=== PATIENT | female | born 1995 | race Caucasian/White ===

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

== ENCOUNTER → 2017-01-07 | Outpatient (CLI) | payer BC ==
[~2017-01-07] MED LIST changes: +COLA100C3 PO; +MIRA3350 PO; +PROCAER4 PR
--- NOTE | 2017-01-07 20:04 | ECHO ---
DATE OF PROCEDURE: 01/07/2017 REFERRING PHYSICIAN: Tanja Acevedo MD HEIGHT: 169 cm WEIGHT: 91 kg INDICATION: Heart murmur. DIMENSIONS: IVS: 0.8 LV: 4.4 LVPW: 0.9 LA: 3.1 Aorta: 2.3 FINDINGS: The study is of acceptable technical quality. Left ventricle is of normal size and systolic function with estimated left ventricular ejection fraction (LVEF) 60-65%. Right ventricle is also normal size and systolic function. Both atria appear normal. All four cardiac valves were well seen and appear normal. There is no pericardial effusion. Inferior vena cava is normal size. Aortic root and aortic arch appear normal. Doppler interrogation reveals no significant aortic and mitral valve disease. There is trace tricuspid insufficiency. Calculated pulmonary artery pressure is within normal limits. Pulmonic valve is functionally competent. Mitral inflow pattern and tissue Doppler imaging of mitral annulus reveal normal diastolic function of left ventricle. CONCLUSIONS: 1. Study is of acceptable technical quality. 2. Normal LV size and systolic function, normal diastolic function. 3. No significant valvular disease. 4. Normal central venous pressure and likely normal pulmonary artery pressure. COMMENT: Subacute bacterial endocarditis (SBE) prophylaxis is not recommended. Essentially normal echocardiogram.
== END ==
LOC: M CARPUL 14:53
PROVIDERS: ATTEND Pediatrics
DX: R01.1 Cardiac murmur, unspecified (principal)

== ENCOUNTER 2017-01-13 19:08 | Emergency (ER) | payer BC ==
[~2017-01-13] VITALS: Ht 165.1 cm; Wt 94.3 kg
[~2017-01-13 19:08] MED LIST changes: -COLA100C3 PO; +IBUP-1022 PO; -IBUP600T26 PO; -PROCAER4 PR
[2017-01-13] MEDS ORDERED: COLA100C5 PO (20:11)
[2017-01-13] MEDS ORDERED: PROCAER4 PR (20:11)
[2017-01-13 20:25] VITALS: BP 108/67
== END 2017-01-13 20:25 | disposition home or self-care (01) ==
LOC: M ED 19:52
DX: K64.4 Residual hemorrhoidal skin tags (principal); K59.00 Constipation, unspecified

== ENCOUNTER 2017-03-29 09:13 | Emergency (ER) | payer BC ==
[~2017-03-29] VITALS: Ht 165.1 cm; Wt 94.9 kg
[~2017-03-29 09:13] MED LIST changes: +COLA100C5 PO; +PROCAER4 PR
--- NOTE | 2017-03-29 10:53 | REP ---
Clinical: Spotting for dating and viability. Technique: Transabdominal and transvaginal first trimester obstetrical ultrasound with color Doppler evaluation. Findings: Retroverted uterus measures 6.8 x 4.4 x 6.1 cm. A gestational sac is identified with yolk sac, but no evidence for pole. Mean sac diameter corresponds to 5 weeks 1 day gestational age. Maternal ovaries are normal in appearance and vascularity with a 1.3 cm right corpus luteal cyst suggested. No pelvic free fluid or adnexal mass lesion. Impression: Gestational sac with yolk sac but no pole identified. Differential diagnosis includes early and incomplete . No definite ectopic is appreciated. Correlation with serial HCG levels recommended. Signed by Alex Novak MD 03/29/2017 10:44 A
[2017-03-29] MEDS ORDERED: NAPR500T3 PO (11:09)
[2017-03-29] MEDS ORDERED: TYLE325T5 PO (11:09)
[2017-03-29 11:18] VITALS: BP 134/88
== END 2017-03-29 11:22 | disposition home or self-care (01) ==
LOC: M ED 09:13
DX: O03.9 Complete or unspecified spontaneous abortion without complication (principal); Z87.891 Personal history of nicotine dependence

== ENCOUNTER → 2017-03-31 | Outpatient (CLI) | payer BC ==
[~2017-03-31] MED LIST changes: +NAPR500T3 PO; +TYLE325T5 PO
== END ==
LOC: M LAB 09:50
PROVIDERS: ATTEND Specialist
DX: O20.0 Threatened abortion (principal)

== ENCOUNTER → 2017-04-07 | Outpatient (CLI) | payer BC ==
[2017-04-07 13:56] LABS: BASO % 0.6 % (0.0-1.0); EOS # 0.1 K/mm3 (0.0-0.50); LARGE UNSTAINED CELL # 0.1 K/mm3 (0.0-0.4); LARGE UNSTAINED CELL % 1.8 % (0.0-4.0); LYMPH # 2.6 K/mm3 (1.5-6.5); LYMPH % 40.9 % (24.0-44.0); MEAN CORPUSCULAR HEMOGLOBIN 29.2 pg (27.0-33.0); MEAN CORPUSCULAR HGB CONC 34.3 g/dl (32.0-36.5); MEAN CORPUSCULAR VOLUME 85.2 fl (80.0-96.0); MONO # 0.3 K/mm3 (0.0-0.8); MONO % 4.7 % (0.0-5.0); NEUTROPHILS # 3.2 K/mm3 (1.8-7.7); NEUTROPHILS % 51.1 % (36.0-66.0); PLATELET COUNT, AUTOMATED 214 k/mm3 (150-450); WHITE BLOOD COUNT 6.3 K/mm3 (4.0-10.0)
[2017-04-07 15:21] LABS: HBsAg Prenatal NEGATIVE (NEGATIVE)
== END ==
LOC: M LAB 12:54
PROVIDERS: ATTEND Advanced Practice Midwife
DX: Z34.81 Encounter for supervision of other normal pregnancy, first trimester (principal); Z36 Encounter for antenatal screening of mother; Z3A.00 Weeks of gestation of pregnancy not specified

== ENCOUNTER → 2017-07-05 | Outpatient (CLI) | payer BC ==
--- NOTE | 2017-07-05 13:29 | REP ---
Obstetric ultrasound for anatomy: There is a single intrauterine gestation in a vertex presentation. There is movement and cardiac activity. heart rate is 115 beats per minute. The placenta is posterior. There is no placenta previa or abruptio. Placenta is grade zero maturity. The inferior margin of the placenta lies within 1.7 - 2.5 cm of the internal cervical os and is low lying. Because of this consideration might be given to having the patient return for endovaginal Doppler ultrasound for assurance there is no vasa previa. Cervix measures 2.5 cm length. Based on the ultrasound today gestational age is 18 weeks 5 days with an GABRIEL of 12/01/2017. weight is 269 grams (0 pounds, 9 ounces). This is the 57th percentile for 18 weeks 5 days. The following anatomic structures are identified and are unremarkable: Intracranial lateral ventricles, choroid plexus, cerebellum, cisterna magna, facial profile, face, lungs, diaphragm, stomach, cord insertion, three-vessel cord, kidneys, bladder, spine and upper extremities. Suboptimally demonstrated are the four-chamber view of the heart and the right and left cardiac ventricular outflow tracts and lower extremities. A followup study dedicated to these structures might be considered. Additionally, I recommend the patient return for endovaginal imaging with color Doppler to evaluate for vasa previa. Because of the low lying placenta. Otherwise, no anomalies are identified Signed by Jose Angel Araiza MD 07/05/2017 01:20 P
== END ==
LOC: M SMT 09:57
PROVIDERS: ATTEND Advanced Practice Midwife
DX: Z36.89 Encounter for other specified antenatal screening (principal); Z3A.18 18 weeks gestation of pregnancy

== ENCOUNTER → 2017-07-27 | Outpatient (CLI) | payer BC | LOC: M SMT 15:00 | DX: Z34.82 Encounter for supervision of other normal pregnancy, second trimester (principal) | CPT/HCPCS: 76816 ==

== ENCOUNTER → 2017-08-25 | Outpatient (CLI) | payer BC | LOC: M SMT 11:15 | DX: Z34.82 Encounter for supervision of other normal pregnancy, second trimester (principal) ==

== ENCOUNTER → 2017-09-03 | Outpatient (CLI) | payer BC ==
[2017-09-03 14:00] LABS: HEMATOCRIT 40.7 % (36.0-47.0); HEMOGLOBIN 13.3 g/dl (12.0-16.0); MEAN CORPUSCULAR HGB CONC 32.7 g/dl (32.0-36.5); MEAN CORPUSCULAR VOLUME 88.7 fl (80.0-96.0); PLATELET COUNT, AUTOMATED 204 10^3/uL (150-450); RED BLOOD COUNT 4.59 10^6/uL (4.00-5.40); RED CELL DISTRIBUTION WIDTH 13.2 % (11.5-14.5); WHITE BLOOD COUNT 8.9 10^3/uL (4.0-10.0)
[2017-09-03 14:24] LABS: GLUCOSE CHALLENGE TEST 1 HOUR 96 MG/DL (LESS THAN 140)
== END ==
LOC: M SMT 08:14
DX: Z34.82 Encounter for supervision of other normal pregnancy, second trimester (principal)
CPT/HCPCS: 82950

== ENCOUNTER → 2017-11-04 | Outpatient (REF) | payer BC | LOC: M LAB REF 13:18 | DX: Z34.83 Encounter for supervision of other normal pregnancy, third trimester (principal) | CPT/HCPCS: 87086 ==

== ENCOUNTER 2017-11-28 00:24 | Inpatient (IN) | payer BC ==
[2017-11-28 01:57] LABS: HEMATOCRIT 39.7 % (36.0-47.0); HEMOGLOBIN 13.3 g/dl (12.0-15.5); MEAN CORPUSCULAR HEMOGLOBIN 27.4 pg (27.0-33.0); MEAN CORPUSCULAR HGB CONC 33.5 g/dl (32.0-36.5); MEAN CORPUSCULAR VOLUME 81.7 fl (80.0-96.0); PLATELET COUNT, AUTOMATED 180 10^3/uL (150-450); RED BLOOD COUNT 4.86 10^6/uL (4.00-5.40); RED CELL DISTRIBUTION WIDTH 13.7 % (11.5-14.5); WHITE BLOOD COUNT 9.3 10^3/uL (4.0-10.0)
[2017-11-28] MEDS ORDERED: FENTANYL 2MCG/ML ROPIVACAINE 0.2% IN 0.9% NACL 200ML IVBAG As Ordered (03:43)
[2017-11-28] MEDS ORDERED: OXYTOCIN 30 UNITS IN 0.9% NaCl 500ML IV BAG (J2590) As Ordered ×2 (03:44→09:55)
[2017-11-28] MEDS ORDERED: REFRIGERATOR IV KEYS XX (05:00)
[2017-11-28] MEDS ORDERED: diphenhydrAMINE INJ 50MG/ML VIAL (J1200) IV (05:00)
[2017-11-28] MEDS ORDERED: ONDANSETRON 4MG/2ML VIAL (J2405) IV ×2 (05:00→10:15)
[2017-11-28] MEDS ORDERED: EPIDURAL COMMENT XX (05:00)
[2017-11-28] MEDS ORDERED: ePHEDrine SULFATE 25 MG/5 ML(5MG/ML) SYRINGE IV (05:00)
[2017-11-28] MEDS ORDERED: EPIDURAL/PCA KEYS XX (05:00)
[2017-11-28] MEDS ORDERED: LACTATED RINGER'S 1000 ML IV (05:00)
[2017-11-28] MEDS ORDERED: NALOXONE INJ 0.4 MG/1 ML VIAL (J2310) IV (05:00)
[2017-11-28] MEDS: OXYTOCIN DRIP 30 UNITS in APPROPRIATE DILUENT 1 EA IV ×2 (09:39→10:05)
[2017-11-28 09:42] LABS: CORD GAS ABE A -10.5; CORD GAS HCO3 A 20.2 MEQ/L; CORD GAS O2 SAT A 19.6 %; CORD GAS PCO2 A 64.5 mmHg; CORD GAS PH A 7.113 UNITS; CORD GAS PO2 A 15.7 mmHg; CORD GAS SBC A 14.7 MEQ/L; CORD GAS TCO2 A 22.1 MEQ/L
[2017-11-28 09:45] LABS: CORD GAS ABE V -8.7; CORD GAS HCO3 V 18.3 MEQ/L; CORD GAS O2 SAT V 63.4 %; CORD GAS PH V 7.246 UNITS; CORD GAS PO2 V 29.7 mmHg; CORD GAS SBC V 16.8 MEQ/L; CORD GAS TCO2 V 19.6 MEQ/L
[2017-11-28] MEDS ORDERED: DIBUCAINE 1% OINTMENT 30GM TOP (10:15)
[2017-11-28] MEDS ORDERED: DOCUSATE SODIUM 100 MG CAP PO (10:15)
[2017-11-28] MEDS ORDERED: METHYLERGONOVINE MALEATE 0.2 MG TAB PO (10:15)
[2017-11-28] MEDS: IBUPROFEN 800 MG TAB PO ×2 (10:21→19:25)
[2017-11-28] MEDS: ACETAMINOPHEN 500 MG TAB PO (17:53)
[2017-11-28] MEDS: FENTANYL/ROPIVACAINE/NACL BAG 200 ML EPIDURAL (19:30)
[2017-11-29] MEDS: IBUPROFEN 800 MG TAB PO ×2 (03:21→12:46)
[2017-11-29] MEDS: PRENATAL VITAMINS CHEWABLE TABLET PO (08:50)
[2017-11-29] MEDS: MEASLES,MUMPS,RUBELLA VACCINE INJ (MMR-II) (90707) SC (09:18)
[2017-11-29] MEDS: RHOGAM 300 MCG (1500 IU) INJ (J2790) IM (09:18)
[2017-11-29] MEDS: ACETAMINOPHEN 500 MG TAB PO (18:43)
[2017-11-30] MEDS: IBUPROFEN 800 MG TAB PO (03:56)
[2017-11-30] MEDS: ACETAMINOPHEN 500 MG TAB PO (03:56)
[2017-11-30] MEDS: PRENATAL VITAMINS CHEWABLE TABLET PO (07:38)
== END 2017-11-30 13:00 | disposition home or self-care (01) | DRG 560 ==
LOC: M LDO 00:24 → M LDI 01:21 → M OBS 11:50
PROVIDERS: Advanced Practice Midwife
PROC: 10E0XZZ Delivery of Products of Conception, External Approach (ICD-10-PCS; principal; 2017-11-28)
DX: O69.81X0 Labor and delivery complicated by cord around neck, without compression, not applicable or unspecified (principal); O77.0 Labor and delivery complicated by meconium in amniotic fluid; Z3A.40 40 weeks gestation of pregnancy; Z37.0 Single live birth

== ENCOUNTER → 2018-04-12 | Outpatient (REF) | payer BC, MEDICAID ==
[2018-04-12 17:25] LABS: BASO % 0.4 % (0.0-1.0); EOS # 0.1 10^3/uL (0.0-0.50); EOS % 0.7 % (0.0-3.0); HEMATOCRIT 41.2 % (36.0-47.0); HEMOGLOBIN 13.6 g/dl (12.0-15.5); IMMATURE GRANULOCYTE % 0.3 % (0-3.0); LYMPH # 2.3 10^3/uL (1.5-6.5); LYMPH % 30.2 % (24.0-44.0); MEAN CORPUSCULAR HEMOGLOBIN 26.7 pg (27.0-33.0); MEAN CORPUSCULAR VOLUME 80.9 fl (80.0-96.0); MONO # 0.5 10^3/uL (0.0-0.8); MONO % 6.4 % (0.0-5.0); NEUTROPHILS # 4.8 10^3/uL (1.8-7.7); PLATELET COUNT, AUTOMATED 211 10^3/uL (150-450); RED BLOOD COUNT 5.09 10^6/uL (4.00-5.40); RED CELL DISTRIBUTION WIDTH 13.2 % (11.5-14.5); WHITE BLOOD COUNT 7.7 10^3/uL (4.0-10.0)
[2018-04-12 18:02] LABS: CHLAMYDIA DNA AMPLIFICATION NEGATIVE (NEGATIVE); GC DNA AMPLIFICATION NEGATIVE (NEGATIVE)
[2018-04-13 10:37] LABS: HEPATITIS C VIRUS ABY INDEX 0.1 INDEX (<0.8)
[2018-04-13 10:37] LABS: HBsAg Prenatal NEGATIVE (NEGATIVE); HIV 1&2 SCREEN CENTAUR NEGATIVE (NEGATIVE); RUBELLA IgG QUALITATIVE IMMUNE (IMMUNE)
== END ==
LOC: M LABDRAW1 16:02
DX: Z36.89 Encounter for other specified antenatal screening (principal); Z3A.10 10 weeks gestation of pregnancy
CPT/HCPCS: 86762

== ENCOUNTER → 2018-05-23 | Outpatient (CLI) | payer BC, MEDICAID | LOC: M SMT 10:27 | DX: Z34.82 Encounter for supervision of other normal pregnancy, second trimester (principal); Z36.89 Encounter for other specified antenatal screening; Z3A.19 19 weeks gestation of pregnancy | CPT/HCPCS: 76811 ==

== ENCOUNTER → 2018-09-16 | Outpatient (REF) | payer BC, MEDICAID ==
[~2018-09-16] MED LIST changes: +ACET-683 PO; +IBUP1TAB7 PO; +NAPR-885 PO; -NAPR500T3 PO; +PRENTAB55 PO; +PROC1AER16 PR; -PROCAER4 PR
== END ==
LOC: M LAB REF 13:39
PROVIDERS: ATTEND Advanced Practice Midwife
DX: Z34.83 Encounter for supervision of other normal pregnancy, third trimester (principal); Z3A.00 Weeks of gestation of pregnancy not specified

== ENCOUNTER 2018-10-06 15:29 | Inpatient (IN) | payer BC, MEDICAID ==
[~2018-10-06] VITALS: Ht 167.6 cm; Wt 103.5 kg
[2018-10-06] VITALS (8 sets, daily range): BP systolic 113–144; BP diastolic 68–91
[2018-10-06] MEDS ORDERED: PENICILLIN G POTASSIUM IV 5 MU in D5W MINI-BAG PLUS 100 ML IV STA (15:51)
[2018-10-06 16:10] LABS: HEMATOCRIT 39.3 % (36.0-47.0); HEMOGLOBIN 12.7 g/dl (12.0-15.5); MEAN CORPUSCULAR HGB CONC 32.3 g/dl (32.0-36.5); MEAN CORPUSCULAR VOLUME 77.5 fl (80.0-96.0); PLATELET COUNT, AUTOMATED 206 10^3/uL (150-450); RED BLOOD COUNT 5.07 10^6/uL (4.00-5.40); WHITE BLOOD COUNT 9.6 10^3/uL (4.0-10.0)
[2018-10-06] MEDS ORDERED: OXYTOCIN 30 UNITS IN 0.9% NaCl 500ML IV BAG (J2590) As Ordered ONE (16:10)
--- NOTE | 2018-10-06 16:10 | HPE ---
DATE OF ADMISSION: 10/06/2018 Ana is a 23-year-old, 2, para 1-0-0-1, at 39-1/7 weeks gestation, with an estimated date of confinement (EDC) of 10/12/2018, based on last menstrual period, confirmed by first trimester ultrasound. She presents to labor and delivery today with report of onset of uncomfortable contractions at approximately 1230 hours that are now 2-3 minutes apart. She denies vaginal bleeding and leakage of fluid. The fetus has been active. Her care was initiated at [facility] in the first trimester. course complicated by anxiety. No medications. OBSTETRICAL HISTORY: November 2017, 40 weeks gestation, 7 pound 9 ounce male, vaginal delivery uncomplicated. OBSTETRIC LABS: O+, antibody screen negative, rubella immune, VDRL nonreactive. Urine culture no growth. Hep B surface antigen negative, HIV negative. Hep C antibody nonreactive. Gonorrhea and chlamydia negative. She declined genetic serum screening labs. Her gestational diabetic screening was not performed. GBS is positive. PAST MEDICAL HISTORY: Anxiety. SURGERIES: None. FAMILY HISTORY: Hypertension, seizure disorder, depression, anxiety, thyroid disorder. SOCIAL HISTORY: The patient is single. However, her father of the baby is at bedside and supportive. She is a nonsmoker. Denies alcohol and drug use. She does have a history of HPV. She denies history of abuse physical, sexual and emotional. ALLERGIES: NO KNOWN DRUG ALLERGIES. CURRENT MEDICATIONS: - vitamins OBJECTIVE: Blood pressure 132/75. She is alert and oriented times three. She is very uncomfortable with her contractions and deep breathing and focusing. heart rate is 140 with moderate variability, positive accelerations, no decelerations observed. Contractions are about every 2 minutes. Sterile vaginal exam: 8 cm dilated, 80% effaced, minus two station, positive bloody show. Membranes are intact. Abdomen is gravid, cephalic presentation. Estimated weight 8 pounds. ASSESSMENT: Uterine at 39-1/7 weeks, heart rate category 1, active labor. PLAN: Admit the patient to labor and delivery. Saline lock. IV antibiotics for GBS prophylaxis. The patient plans to cope with her labor physiologically. Will likely artifical rupture of membranes (AROM) for augmentation. Routine labs have been ordered. Clear liquid diet and out of bed ad judi. I do anticipate continued progress and a spontaneous vaginal delivery shortly.
[2018-10-06] MEDS ORDERED: OXYTOCIN DRIP 30 UNITS in APPROPRIATE DILUENT 1 EA IV SCH (17:17)
[2018-10-06] MEDS ORDERED: IBUPROFEN 800 MG TAB As Ordered ONE (17:22)
[2018-10-06] MEDS: IBUPROFEN 800 MG TAB PO PRN (17:24)
[2018-10-06] MEDS ORDERED: MEASLES,MUMPS,RUBELLA VACCINE INJ (MMR-II) (90707) SC SCH (17:30)
[2018-10-06] MEDS ORDERED: METHYLERGONOVINE MALEATE 0.2 MG TAB PO PRN (17:30)
[2018-10-06] MEDS ORDERED: DIBUCAINE 1% OINTMENT 30GM TOP PRN (17:30)
[2018-10-06] MEDS ORDERED: METHYLERGONOVINE MALEATE 0.2 MG/ML VIAL (J2210) IM ONE (17:30)
[2018-10-06] MEDS ORDERED: RHOGAM 300 MCG (1500 IU) INJ (J2790) IM SCH (17:30)
[2018-10-06] MEDS ORDERED: DOCUSATE SODIUM 100 MG CAP PO PRN (17:30)
[2018-10-06] MEDS: ACETAMINOPHEN 500 MG TAB PO PRN (17:31)
--- NOTE | 2018-10-06 17:47 | DN ---
DATE OF DELIVERY: 10/06/2018 Ana is a 23-year-old 2 para 2-0-0-2 now who was admitted to labor and deliver in active labor. She coped with her labor physiologically. She reached full dilation at 1644 hours. She pushed to a normal spontaneous vaginal delivery of a live female in occiput anterior (OA) position with restitution to right occiput transverse (ROT) position at 1653 hours. There was a nuchal cord times one, loose, reduced manually at the time of delivery. The female's mouth and nares were bulb suctioned and she was placed on maternal abdomen crying and active. Cord was clamped times two once pulsations ceased and cut by the father of the baby. Cord blood was obtained. Spontaneous expulsion of an intact placenta with three-vessel cord by Hung mechanism was at 1658 hours. Uterine hemostasis achieved with IV Pitocin rapid infusion and Methergine 0.2 mg IM and uterine fundal massage. Estimated blood loss 350 mL. Perineum and vagina inspected, noted to be intact. Hickman female weighed 3110 grams, 6 pounds 14 ounces, eight and nine. Mom is going to bottle feed her daughter and the family have named her Chantell. At the close of delivery, lap counts and instrument counts were correct and verified.
[2018-10-06] MEDS ORDERED: PENICILLIN G POTASSIUM IV 2.5 MU in APPROPRIATE DILUENT 1 EA IV SCH (20:00)
[2018-10-07] MEDS: ACETAMINOPHEN 500 MG TAB PO PRN ×3 (00:08→18:41)
[2018-10-07] MEDS: IBUPROFEN 800 MG TAB PO PRN ×3 (02:13→17:40)
[2018-10-07 06:00] VITALS: BP 109/53
[2018-10-07] MEDS: PRENATAL VITAMINS CHEWABLE TABLET PO SCH (08:25)
[2018-10-07 18:00] VITALS: BP 113/85
[2018-10-08] MEDS: IBUPROFEN 800 MG TAB PO PRN (04:32)
[2018-10-08 05:24] VITALS: BP 118/71
[2018-10-08] MEDS: ACETAMINOPHEN 500 MG TAB PO PRN (05:46)
[2018-10-08] MEDS ORDERED: IBUP-1114 PO (07:43)
[2018-10-08] MEDS: PRENATAL VITAMINS CHEWABLE TABLET PO SCH (07:47)
[2018-10-08] MEDS ORDERED: ANUSOL HC CREAM 30GM TOP SCH (09:00)
== END 2018-10-08 13:50 | disposition home or self-care (01) | DRG 560 ==
LOC: M LDI 15:29 → M OBS 19:00
PROVIDERS: ADMIT Advanced Practice Midwife; ATTEND Advanced Practice Midwife
PROC: 10E0XZZ Delivery of Products of Conception, External Approach (ICD-10-PCS; principal; 2018-10-06)
DX: O99.824 Streptococcus B carrier state complicating childbirth (principal); O69.81X0 Labor and delivery complicated by cord around neck, without compression, not applicable or unspecified; Z3A.39 39 weeks gestation of pregnancy; Z37.0 Single live birth

== ENCOUNTER → 2018-12-01 | Outpatient (CLI) | payer BC, MEDICAID ==
[~2018-12-01] MED LIST changes: +IBUP-1114 PO
[2018-12-01 17:32] LABS: HCG, SERUM QUALITATIVE NEGATIVE (NEGATIVE)
== END ==
LOC: M SMT 13:38
PROVIDERS: ATTEND Advanced Practice Midwife
DX: Z34.80 Encounter for supervision of other normal pregnancy, unspecified trimester (principal); Z3A.00 Weeks of gestation of pregnancy not specified

== ENCOUNTER → 2019-06-13 | Outpatient (REF) | payer BC, MEDICAID | LOC: M LAB REF 17:28 | PROVIDERS: ATTEND Advanced Practice Midwife | DX: Z12.4 Encounter for screening for malignant neoplasm of cervix (principal) ==

== ENCOUNTER 2019-06-21 09:32 | Inpatient (IN) | payer BC, MEDICAID ==
[~2019-06-21] VITALS: Ht 167.6 cm; Wt 99.7 kg
[2019-06-21] MEDS ORDERED: FLUO10CA8 PO (09:46)
[2019-06-21] MEDS ORDERED: HYDR50TA70 PO (09:46)
[2019-06-21] MEDS ORDERED: BUSP5TA PO (09:46)
[2019-06-21] MEDS ORDERED: LORazepam 0.5 MG TAB PO STA (09:51)
[2019-06-21 10:08] LABS: HEMATOCRIT 46.3 % (36.0-47.0); HEMOGLOBIN 14.5 g/dl (12.0-15.5); MEAN CORPUSCULAR HEMOGLOBIN 26.5 pg (27.0-33.0); MEAN CORPUSCULAR HGB CONC 31.3 g/dl (32.0-36.5); MEAN CORPUSCULAR VOLUME 84.5 fl (80.0-96.0); PLATELET COUNT, AUTOMATED 198 10^3/uL (150-450); RED BLOOD COUNT 5.48 10^6/uL (4.00-5.40); WHITE BLOOD COUNT 5.9 10^3/uL (4.0-10.0)
[2019-06-21 10:29] LABS: HCG, SERUM QUALITATIVE NEGATIVE (NEGATIVE)
[2019-06-21 10:39] LABS: ACETAMINOPHEN LEVEL < 2.0 UG/ML (10.0-30.0); ALT/SGPT 24 U/L (12-78); BILIRUBIN,DIRECT 0.1 MG/DL (0.0-0.2); BILIRUBIN,TOTAL 0.5 MG/DL (0.2-1.0); BLOOD UREA NITROGEN 12 MG/DL (7-18); CALCIUM LEVEL 9.3 MG/DL (8.5-10.1); CARBON DIOXIDE LEVEL 25 MEQ/L (21-32); CHLORIDE LEVEL 104 MEQ/L (98-107); ETHYL ALCOHOL (ETHANOL) < 0.003 % (0.000-0.010); GLOMERULAR FILTRATION RATE > 60.0 (>60); GLUCOSE, FASTING 112 MG/DL (70-100); POTASSIUM SERUM 3.6 MEQ/L (3.5-5.1); SALICYLATE LEVEL < 1.7 MG/DL (5.0-30.0); SODIUM LEVEL 140 MEQ/L (136-145); TOTAL PROTEIN 7.6 GM/DL (6.4-8.2)
[2019-06-21 10:41] LABS: AMPHETAMINES LEVEL URINE NEGATIVE (NEGATIVE); BARBITURATES URINE NEGATIVE (NEGATIVE); BENZODIAZEPINES URINE NEGATIVE (NEGATIVE); CANNABINOIDS URINE NEGATIVE (NEGATIVE); COCAINE METABOLITE URINE NEGATIVE (NEGATIVE); METHADONE URINE NEGATIVE (NEGATIVE); OPIATES URINE NEGATIVE (NEGATIVE); PHENCYCLIDINE URINE NEGATIVE (NEGATIVE)
[2019-06-21] MEDS ORDERED: ACETAMINOPHEN 325 MG TAB PO ONE (11:00)
[2019-06-21] MEDS ORDERED: IBUPROFEN 400 MG TAB PO PRN (12:30)
[2019-06-21] MEDS ORDERED: MAALOX 30 ML SUSP *UDC PO PRN (12:30)
[2019-06-21] MEDS ORDERED: NICOTINE 21MG/24HR 1 EA TRANSDERMAL TD PRN (12:30)
[2019-06-21] MEDS ORDERED: traZODone 50 MG TAB PO PRN (12:30)
[2019-06-21] MEDS ORDERED: MOM 30ML SUSPENSION UDC PO PRN (12:30)
--- NOTE | 2019-06-21 13:33 | ECGEPIP ---
[facility] - ED Test Date: 2019-06-21 Pat Name: JODI GRAVES Department: Room: - Gender: Female Security Solutions Architect: GIORGI : 1995 Requested By: DONATO DANIELSON Order Number: [id number] Reading MD: Al Hernandez Measurements Intervals Sanderson Rate: 119 P: 42 ME: 135 QRS: 20 QRSD: 90 T: 29 QT: 328 QTc: 463 Interpretive Statements SINUS TACHYCARDIA NSTTW ABNORMALITIES NO PRIORS FOR COMPARISON Electronically Signed on 06-21-2019 13:33:02 EST by Al Hernandez
--- NOTE | 2019-06-21 15:19 | HPEPDOC ---
[facility] Medical History & Physical Date of Admission Jun 21, 2019 Date of Service: Jun 21, 2019 History and Physical CHIEF COMPLAINT: Depression HISTORY OF PRESENT ILLNESS: 23-year-old female with past medical history of anx iety and depression, presents with worsening depression for the past few months. She reports depression, worsening since her second child , 8 months ago, thinks she is having depression. She also reports fleeting thoughts that she might be better off , denies thoughts of committing suicide, does not have a plan. She has no additional medical history, only takes medication for anxiety and depression, denies any medical complaints at this time. She denies shortness of breath, chest pain, nausea, vomiting, abdominal pain or diarrhea. 10 point review of system is negative except for above PAST MEDICAL HISTORY: 1. Anxiety and depression. PAST SURGICAL HISTORY: 1. None. SOCIAL HISTORY: Never smoker. Denies alcohol. Denies drug use FAMILY HISTORY: Noncontributory ALLERGIES: Please see below. HOME MEDICATIONS: Please see below. PHYSICAL EXAMINATION: VITAL SIGNS: Please see below. GENERAL: No distress HEENT: Normocephalic, atraumatic, moist mucous membranes NECK: Supple CARDIOVASCULAR EXAMINATION: S1, S2, no murmurs RESPIRATORY EXAMINATION: Clear to auscultation, no wheezing ABDOMINAL EXAMINATION: Soft, nontender, nondistended, positive bowel sounds EXTREMITIES: Range of motion intact SKIN: No rash NEUROLOGICAL EXAMINATION: Alert and oriented 3, no focal deficits PSYCHIATRIC EXAMINATION: Calm and cooperative LABORATORY DATA: See below. MICROBIOLOGY: Please see below. ASSESSMENT: 23-year-old female with past medical history anxiety and depression, presents with worsening depression since giving 8 months ago. PLAN: 1. Anxiety and depression. Management as per primary team 2. Elevated TSH. Mildly elevated, recommend outpatient follow-up and repeat TSH in a few weeks. Patient does not have any medical complaints at this time, please reconsult as needed. Vital Signs Vital Signs Date Time Temp Pulse Resp B/P (MAP) Pulse Ox O2 Delivery O2 Flow Rate FiO2 06/21/19 13:35 98.3 100 18 134/84 (101) 100 Room Air Laboratory Data Labs 24H Laboratory Tests 2 06/21/19 09:55: Nucleated Red Blood Cells % (auto) 0.0, Anion Gap 11, Glomerular Filtration Rate > 60.0, Calcium Level 9.3, Total Bilirubin 0.5, Direct Bilirubin 0.1, Aspartate Amino Transf (AST/SGOT) 12, Alanine Aminotransferase (ALT/SGPT) 24, Alkaline Phosphatase 72, Total Protein 7.6, Albumin 4.0, Albumin/Globulin Ratio 1.11, Thyroid Stimulating Hormone (TSH) 8.950H, Human Chorionic Gonadotropin, Qual NEGATIVE, Salicylates Level < 1.7L, Urine Opiates Screen NEGATIVE, Urine Methadone Screen NEGATIVE, Acetaminophen Level < 2.0L, Urine Barbiturates Screen NEGATIVE, Urine Phencyclidine Screen NEGATIVE, Urine Amphetamines Screen NEGATIVE, Urine Benzodiazepines Screen NEGATIVE, Urine Cocaine Metabolite Screen NEGATIVE, Urine Cannabinoids Screen NEGATIVE, Ethyl Alcohol Level < 0.003 CBC/BMP Laboratory Tests 06/21/19 09:55 Home Medications Scheduled Buspirone HCl (Buspirone HCl) 5 Mg Tablet, 5 MG PO TID Fluoxetine Hcl (Fluoxetine HCl) 10 Mg Capsule, 10 MG PO QHS Allergies Coded Allergies: hydroxyzine (Verified Adverse Reaction, Mild, LIGHTHEADED, BLURRY VISION, 06/21/19) A-FIB/CHADSVASC A-FIB History Current/History of A-Fib/PAF?: No MAHESH URIBE MD Jun 21, 2019 15:19
[2019-06-21 16:15] VITALS: BP 116/60
[2019-06-21] MEDS: busPIRone 5 MG TAB PO SCH ×2 (17:49→20:24)
[2019-06-22 05:58] VITALS: BP 111/54
[2019-06-22] MEDS: busPIRone 5 MG TAB PO SCH (09:04)
--- NOTE | 2019-06-22 09:49 | MHHPEPDOC ---
[facility] History & Physical History and Physical DATE OF ADMISSION: Jun 21, 2019 at 12:23 New Patient Ana Tena MRN: N/A Date of : N/A Date of Service: 06/22/2019 Chief Complaint "I'm just so anxious." History of Present Illness The patient a 23-year-old woman with no major past psychiatric history presents reportedly with hopelessness, misconstrued as suicidal thoughts. She is admitted out of an abundance of caution. She reports that she has had significant anxiety with panic attacks with significant somatic symptoms, dizziness and chest pain during these episodes. She reports having excessive anxiety that has gotten worse since she had her 2 children. She reports depressive symptoms of low mood, insomnia, difficulty enjoying and a sense of hopelessness has pervaded her life. The patient has presented after recently having her 2 children and feels that she has " depression." Review Of Systems Depression: As above. Anxiety: As above. Celia: The patient denies any episodes of euphoria/dysphoria associated with decreased need for sleep, hedonism, talkatively or impulsivity lasting longer than 5 days. Psychotic: The patient denies any experiences of auditory or visual hallucinations. They deny any episodes of paranoia or delusional thinking in the past Trauma: The patient denies any traumatic events associated with nightmares or intrusive thoughts. Borderline: The patient screens negative for borderline personality at this junction. Past Psychiatric History The patient reports no history of psychiatric admissions or current follow-up. Denies any history of suicide attempts. Reports trying Prozac in the past with negative results, currently on BuSpar 5 mg TID, treated by primary care primarily. Allergies Please see below. Family Psychiatric History Reportedly has a mental health history in her family of her mother with depression and both of her grandmothers had attempted suicide. Social History The patient is a currently not woman with 2 children. She has been together with her partner for 9 years. She describes this as a good supportive relationship. She has no income, did not graduate high school, only got to the 11th grade. She reports a good relationship with her parents and they were . No history of trauma or abuse growing up. Substance Abuse History The patient denies any excessive alcohol use, tobacco or illicit drug use, denies history of substance use treatment. Medical History Patient has no significant past medical history. Mental Status Examination General: Well dressed with good hygiene Speech: Spontaneous and fluid Thought processes: Linear and logical MSK: Smooth and coordinated gait, no signs of tremors or involuntary orofacial movements Thought content: Preoccupied with anxiety. Abstract reasoning, and computation: Intact Description of associations: Intact Description of abnormal or psychotic thoughts: Denies any suicidal or homicidal ideation. Denies any auditory or visual hallucinations. Does not appear to be responding to internal stimuli. Does not appear to be endorsing any bizarre or paranoid ideation. Judgment: fair Insight: fair Orientation: Alert and orientated 3 Cognition: Grossly normal Recent and remote memory: Intact Attention span and concentration: Intact Fund of knowledge: Adequate Mood: "okay" Affect: Anxious with a constricted range. Diagnoses Unspecified depressive disorder. Unspecified anxiety disorder. Assessment and Plan Unspecified depression/anxiety: We'll start Effexor 37.5 mg extended release daily, PRN oxazepam 10 mg started with the express understanding that this would not be continued after discharge. Discussed the risks, benefits, potential side effects as well as the use of psychotherapy for treatment. Disposition The patient will need a further inpatient admission for medication adjustment stabilization and to ensure a safe discharge likely lasting 1 or 2 midnights. Problem List 1. Risk for suicide. 2. Depression. 3. Anxiety. Initial Treatment Plan 1. Patient was admitted on a 9.39 legal status. 2. Complete history was obtained. 3. With patients permission, family will be contacted and database will be expanded. 4. Patients medication regimen will be reviewed and changed accordingly. 5. Patient will be provided with protected environment. 6. Patient will be treated with individual, group, and milieu therapies. 7. Patient will receive supportive psych-education. 8. Discharge planning will commence immediately. 9. Outpatient follow-up treatment will be strongly recommended. 10. The initial treatment plan will focus initially on: Estimated Length Of Stay 3 days. Time Spent 70 minutes. Vital Signs Vital Signs Date Time Temp Pulse Resp B/P (MAP) Pulse Ox O2 Delivery O2 Flow Rate FiO2 06/22/19 05:58 97.7 76 16 111/54 (73) 06/21/19 16:15 Room Air 06/21/19 13:35 100 Laboratory Data 24H Labs Laboratory Tests 2 06/21/19 09:55: Nucleated Red Blood Cells % (auto) 0.0, Anion Gap 11, Glomerular Filtration Rate > 60.0, Calcium Level 9.3, Total Bilirubin 0.5, Direct Bilirubin 0.1, Aspartate Amino Transf (AST/SGOT) 12, Alanine Aminotransferase (ALT/SGPT) 24, Alkaline Phosphatase 72, Total Protein 7.6, Albumin 4.0, Albumin/Globulin Ratio 1.11, Thyroid Stimulating Hormone (TSH) 8.950H, Human Chorionic Gonadotropin, Qual NEGATIVE, Salicylates Level < 1.7L, Urine Opiates Screen NEGATIVE, Urine Methadone Screen NEGATIVE, Acetaminophen Level < 2.0L, Urine Barbiturates Screen NEGATIVE, Urine Phencyclidine Screen NEGATIVE, Urine Amphetamines Screen NEGATIVE, Urine Benzodiazepines Screen NEGATIVE, Urine Cocaine Metabolite Screen NEGATIVE, Urine Cannabinoids Screen NEGATIVE, Ethyl Alcohol Level < 0.003 CBC/BMP Laboratory Tests 06/21/19 09:55 Medications Scheduled Buspirone HCl (Buspirone HCl) 5 Mg Tablet, 5 MG PO TID, (Reported) Fluoxetine Hcl (Fluoxetine HCl) 10 Mg Capsule, 10 MG PO QHS, (Reported) Allergies Coded Allergies: hydroxyzine (Verified Adverse Reaction, Mild, LIGHTHEADED, BLURRY VISION, 06/21/19) EMILIANO JUAREZ DO Jun 22, 2019 09:49
[2019-06-22] MEDS ORDERED: PROPRANOLOL 10 MG TAB PO ONE (11:00)
[2019-06-22 11:12] VITALS: BP 122/59
[2019-06-22 11:49] VITALS: BP 136/68
[2019-06-22] MEDS ORDERED: VENLAFAXINE **XR** 37.5 MG CAPSULE PO ONE (14:45)
[2019-06-22] MEDS: VENLAFAXINE **XR** 37.5 MG CAPSULE PO SCH (15:09)
[2019-06-22 16:16] VITALS: BP 116/64
[2019-06-22] MEDS: OXAZEPAM 10 MG CAP PO PRN (22:17)
[2019-06-23 06:37] VITALS: BP 107/57
[2019-06-23] MEDS: VENLAFAXINE **XR** 37.5 MG CAPSULE PO SCH (08:50)
--- NOTE | 2019-06-23 10:59 | MHIPNPDOC ---
[facility] Progress Note Progress Note Inpatient Progress Note Ana Tena MRN: N/A Date of : N/A Date of Service: 06/23/2019 History of Present Illness The patient a 23-year-old woman with no major past psychiatric history presents reportedly with hopelessness, misconstrued as suicidal thoughts. She is admitted out of an abundance of caution. She reports that she has had significant anxiety with panic attacks with significant somatic symptoms, dizziness and chest pain during these episodes. She reports having excessive anxiety that has gotten worse since she had her 2 children. She reports depressive symptoms of low mood, insomnia, difficulty enjoying and a sense of hopelessness has pervaded her life. The patient has presented after recently having her 2 children and feels that she has " depression." Interval History The patient is met with today. She reports she is feeling somewhat better and was able to sleep last night with the help of the oxazepam. She does ask if she can have a few tablets when she leaves. She does report that she is feeling much improved and that her anxiety although stone tenses, much less vigorous than it was when she presented. She has been attending to groups, engage without any be havioral problems overnight per staff. Review Of Systems General: Denies fever or appetite changes Cardiovascular: Denies Chest pain or palpations GI: Denies Nausea, vomiting, or bowel changes Respiratory: Denies shortness of breath or cough Neuro: Denies dizziness, tremors Derm: Denies any rashes or pruritus : Denies any dysuria or urinary problems MSK: Denies any muscle tightness or stiffness HEENT: Denies any vision changes or headaches Heme/Lymph: denies any bruising or bleeding Endo: denies any cold/heat intolerance or water intake changes Psychotherapy None on this visit. Vital Signs Reviewed. Mental Status Examination General: Well dressed with good hygiene Speech: Spontaneous and fluid Thought processes: Linear and logical MSK: Smooth and coordinated gait, no signs of tremors or involuntary orofacial movements Thought content: Preoccupied with anxiety. Abstract reasoning, and computation: Intact Description of associations: Intact Description of abnormal or psychotic thoughts: Denies any suicidal or homicidal ideation. Denies any auditory or visual hallucinations. Does not appear to be responding to internal stimuli. Does not appear to be endorsing any bizarre or paranoid ideation. Judgment: fair Insight: fair Orientation: Alert and orientated 3 Cognition: Grossly normal Recent and remote memory: Intact Attention span and concentration: Intact Fund of knowledge: Adequate Mood: "okay" Affect: Anxious with a constricted range. Diagnoses Unspecified depressive disorder. Unspecified anxiety disorder. Assessment and Plan Unspecified depression/anxiety: Increase Effexor to 75 mg daily, continue ox azepam 10 mg daily PRN. Disposition Patient will be observed over the weekend and discharged on Wednesday after titration of medications. Time Spent 15 minutes. Wednesday Vital Signs Vital Signs Date Time Temp Pulse Resp B/P (MAP) Pulse Ox O2 Delivery O2 Flow Rate FiO2 06/23/19 06:37 98.5 93 14 107/57 (74) Room Air 06/21/19 13:35 100 Current Medications Current Medications Medications (Trade) Dose Ordered Sig/Esau Route PRN Reason Start Time Stop Time Status Last Admin Dose Admin Al Hydrox/Mg Hydrox/Simethicone (Mylanta) 30 ml Q4HP PRN PO HEARTBURN/INDIGESTION 06/21/19 12:30 Buspirone HCl (Buspar) 5 mg TID PO 06/21/19 16:00 06/22/19 14:25 DC 06/22/19 09:04 Home Med (Med Rec Complete!) ASDIRECTED XX 06/21/19 13:15 06/21/19 13:18 DC Ibuprofen (Advil) 400 mg Q6HP PRN PO PAIN 06/21/19 12:30 Lorazepam (Ativan) 0.5 mg STAT STAT PO 06/21/19 09:51 06/21/19 09:52 DC 06/21/19 11:05 Magnesium Hydroxide (Milk Of Magnesia) 30 ml DAILYPRN PRN PO CONSTIPATION 06/21/19 12:30 Nicotine (Nicoderm Cq 21mg) 1 patch DAILY PRN TD smoking cessation 06/21/19 12:30 Oxazepam (Serax) 10 mg Q4HP PRN PO anxiety 06/22/19 14:30 06/22/19 22:17 Trazodone HCl (Desyrel) 50 mg QHSP PRN PO INSOMNIA 06/21/19 12:30 06/21/19 21:27 Venlafaxine HCl (Effexor Xr) 37.5 mg DAILY PO 06/22/19 09:00 06/23/19 08:50 Allergies Coded Allergies: hydroxyzine (Verified Adverse Reaction, Mild, LIGHTHEADED, BLURRY VISION, 06/21/19) EMILIANO JUAREZ DO Jun 23, 2019 10:59
[2019-06-23 16:45] VITALS: BP 118/62
[2019-06-24 05:42] VITALS: BP 128/67
[2019-06-24] MEDS ORDERED: VENLAFAXINE **XR** 75MG CAPSULE PO SCH (09:00)
[2019-06-24] MEDS: OXAZEPAM 10 MG CAP PO PRN ×3 (09:08→23:45)
[2019-06-24 16:23] VITALS: BP 118/66
[2019-06-24] MEDS ORDERED: OXYMETAZOLINE NASAL SPRAY (AFRIN) ONE (17:00)
[2019-06-25 06:06] VITALS: BP 116/57
--- NOTE | 2019-06-25 08:10 | MHIPNPDOC ---
[facility] Progress Note Progress Note Inpatient Progress Note Ana Tena MRN: N/A Date of : N/A Date of Service: 06/24/2019 History of Present Illness The patient a 23-year-old woman with no major past psychiatric history presents reportedly with hopelessness, misconstrued as suicidal thoughts. She is admitted out of an abundance of caution. She reports that she has had significant anxiety with panic attacks with significant somatic symptoms, dizziness and chest pain during these episodes. She reports having excessive anxiety that has gotten worse since she had her 2 children. She reports depressive symptoms of low mood, insomnia, difficulty enjoying and a sense of hopelessness has pervaded her life. The patient has presented after recently having her 2 children and feels that she has " depression." Interval History The patient met with today. She reports that she is feeling somewhat better from her depression with less low mood, less "shirking feeling". She reports that overall her anxiety has been making some positive strides on the unit. She has been attending groups regularly, without any behavioral problems. She does continue to have significant anxiety worried about her symptoms wondering if she is "schizophrenic".The only symptoms that she was physically she describes are some mild ear pressure which she requests a exam for. Review Of Systems General: Denies fever or appetite changes Cardiovascular: Denies Chest pain or palpations GI: Denies Nausea, vomiting, or bowel changes Respiratory: Denies shortness of breath or cough Neuro: Denies dizziness, tremors Derm: Denies any rashes or pruritus : Denies any dysuria or urinary problems MSK: Denies any muscle tightness or stiffness HEENT: Denies any vision changes or headaches Heme/Lymph: denies any bruising or bleeding Endo: denies any cold/heat intolerance or water intake changes Psychotherapy None on this visit. Vital Signs Reviewed. Mental Status Examination General: Well dressed with good hygiene Speech: Spontaneous and fluid Thought processes: Linear and logical MSK: Smooth and coordinated gait, no signs of tremors or involuntary orofacial movements Thought content: Preoccupied with anxiety. Abstract reasoning, and computation: Intact Description of associations: Intact Description of abnormal or psychotic thoughts: Denies any suicidal or homicidal ideation. Denies any auditory or visual hallucinations. Does not appear to be responding to internal stimuli. Does not appear to be endorsing any bizarre or paranoid ideation. Judgment: fair Insight: fair Orientation: Alert and orientated 3 Cognition: Grossly normal Recent and remote memory: Intact Attention span and concentration: Intact Fund of knowledge: Adequate Mood: "okay" Affect: Anxious with a constricted range. Diagnoses Unspecified depressive disorder. Unspecified anxiety disorder. Assessment and Plan Unspecified depression/anxiety: Increase Effexor to 112.5 mg daily, continue oxazepam 10 mg daily PRN. Disposition The patient will be further observed with a discharge on Wednesday Time Spent 15 minutes. Copy time Wednesday Vital Signs Vital Signs Date Time Temp Pulse Resp B/P (MAP) Pulse Ox O2 Delivery O2 Flow Rate FiO2 06/25/19 06:06 98.9 98 16 116/57 (76) Room Air 06/21/19 13:35 100 Current Medications Current Medications Medications (Trade) Dose Ordered Sig/Esau Route PRN Reason Start Time Stop Time Status Last Admin Dose Admin Al Hydrox/Mg Hydrox/Simethicone (Mylanta) 30 ml Q4HP PRN PO HEARTBURN/INDIGESTION 06/21/19 12:30 Buspirone HCl (Buspar) 5 mg TID PO 06/21/19 16:00 06/22/19 14:25 DC 06/22/19 09:04 Home Med (Med Rec Complete!) ASDIRECTED XX 06/21/19 13:15 06/21/19 13:18 DC Ibuprofen (Advil) 400 mg Q6HP PRN PO PAIN 06/21/19 12:30 Lorazepam (Ativan) 0.5 mg STAT STAT PO 06/21/19 09:51 06/21/19 09:52 DC 06/21/19 11:05 Magnesium Hydroxide (Milk Of Magnesia) 30 ml DAILYPRN PRN PO CONSTIPATION 06/21/19 12:30 Nicotine (Nicoderm Cq 21mg) 1 patch DAILY PRN TD smoking cessation 06/21/19 12:30 Oxazepam (Serax) 10 mg Q4HP PRN PO anxiety 06/22/19 14:30 06/24/19 23:45 Trazodone HCl (Desyrel) 50 mg QHSP PRN PO INSOMNIA 06/21/19 12:30 06/21/19 21:27 Venlafaxine HCl (Effexor Xr) 37.5 mg DAILY PO 06/22/19 09:00 06/23/19 12:29 DC 06/23/19 08:50 Venlafaxine HCl (Effexor Xr) 75 mg DAILY PO 06/24/19 09:00 06/24/19 16:19 DC 06/24/19 09:08 Venlafaxine HCl (Effexor Xr) 112.5 mg DAILY PO 06/25/19 09:00 Allergies Coded Allergies: hydroxyzine (Verified Adverse Reaction, Mild, LIGHTHEADED, BLURRY VISION, 06/21/19) EMILIANO JUAREZ DO Jun 25, 2019 08:10
[2019-06-25] MEDS: OXAZEPAM 10 MG CAP PO PRN ×2 (08:38→20:20)
[2019-06-25] MEDS: VENLAFAXINE **XR** 37.5 MG CAPSULE PO SCH (08:38)
[2019-06-25 08:39] VITALS: BP 140/74
[2019-06-25 12:42] VITALS: BP 122/81
[2019-06-25 15:41] VITALS: BP 117/77
--- NOTE | 2019-06-25 16:32 | MHIPNPDOC ---
[facility] Progress Note Progress Note DATE OF SERVICE: 06/25/19 HISTORY: As per Dr. Dickinson: "History of Present Illness The patient a 23-year-old woman with no major past psychiatric history presents reportedly with hopelessness, misconstrued as suicidal thoughts. She is admitted out of an abundance of caution. She reports that she has had significant anxiety with panic attacks with significant somatic symptoms, dizziness and chest pain during these episodes. She reports having excessive anxiety that has gotten worse since she had her 2 children. She reports depressive symptoms of low mood, insomnia, difficulty enjoying and a sense of hopelessness has pervaded her life. The patient has presented after recently having her 2 children and feels that she has " depression." VITAL SIGNS: See below. NEW TEST RESULTS: See below CURRENT MEDICATIONS: See below. MENTAL STATUS EXAMINATION: Patient is a 23-year old female, who is alert, dressed in hospital clothes, a little disheveled. Speech: Is Normal r/t/v, spontaneous and fluent Language skills are good. Thought processes including: linear, coherent. Thought content: anxious thoughts ( she worries about being schizophrenic, she worries about the medication she takes, if it will help her or not, if is the right medication, about side effects, etc.) Abstract reasoning, and computation: Intact. Description of associations: Intact. Description of abnormal or psychotic thoughts: Denies SI/HI, denies thought delusions, denies AV hallucinations, she's not responding to internal stimuli Judgment: fair Insight: fair. Orientation: x 3. Recent and remote memory: good. Attention span and concentration: good.. Fund of knowledge: Average Mood: "I'm feeling a little bit better" Affect: anxious, a little constricted. DIAGNOSES: 1. Unspecified anxiety disorder 2. Unspecified depressive disorder ASSESSMENT: the patient seems to have improved on her current medications. She describes "zigs and zags" that started last ight, she says they are not really bothering, they are not extremely frequent. She's extremely anxious about her medication side effects, if it will help her or not, about becoming schizophrenic, she says it has been a longstanding fear because one of her father's friends had this illness. MANAGEMENT PLAN: As per Dr. Dickinson TIME SPENT: 20 minutes. Vital Signs Vital Signs Date Time Temp Pulse Resp B/P (MAP) Pulse Ox O2 Delivery O2 Flow Rate FiO2 06/25/19 12:42 94 16 122/81 (95) 06/25/19 06:06 98.9 Room Air 06/21/19 13:35 100 Current Medications Current Medications Medications (Trade) Dose Ordered Sig/Esau Route PRN Reason Start Time Stop Time Status Last Admin Dose Admin Al Hydrox/Mg Hydrox/Simethicone (Mylanta) 30 ml Q4HP PRN PO HEARTBURN/INDIGESTION 06/21/19 12:30 Buspirone HCl (Buspar) 5 mg TID PO 06/21/19 16:00 06/22/19 14:25 DC 06/22/19 09:04 Home Med (Med Rec Complete!) ASDIRECTED XX 06/21/19 13:15 06/21/19 13:18 DC Ibuprofen (Advil) 400 mg Q6HP PRN PO PAIN 06/21/19 12:30 Lorazepam (Ativan) 0.5 mg STAT STAT PO 06/21/19 09:51 06/21/19 09:52 DC 06/21/19 11:05 Magnesium Hydroxide (Milk Of Magnesia) 30 ml DAILYPRN PRN PO CONSTIPATION 06/21/19 12:30 Nicotine (Nicoderm Cq 21mg) 1 patch DAILY PRN TD smoking cessation 06/21/19 12:30 Oxazepam (Serax) 10 mg Q4HP PRN PO anxiety 06/22/19 14:30 06/25/19 08:38 Trazodone HCl (Desyrel) 50 mg QHSP PRN PO INSOMNIA 06/21/19 12:30 06/21/19 21:27 Venlafaxine HCl (Effexor Xr) 37.5 mg DAILY PO 06/22/19 09:00 06/23/19 12:29 DC 06/23/19 08:50 Venlafaxine HCl (Effexor Xr) 75 mg DAILY PO 06/24/19 09:00 06/24/19 16:19 DC 06/24/19 09:08 Venlafaxine HCl (Effexor Xr) 112.5 mg DAILY PO 06/25/19 09:00 06/25/19 08:38 Allergies Coded Allergies: hydroxyzine (Verified Adverse Reaction, Mild, LIGHTHEADED, BLURRY VISION, 06/21/19) DUNCAN KIM MD Jun 25, 2019 15:11
[2019-06-26] MEDS: OXAZEPAM 10 MG CAP PO PRN ×2 (00:20→11:49)
[2019-06-26 06:27] VITALS: BP 114/65
[2019-06-26] MEDS: VENLAFAXINE **XR** 37.5 MG CAPSULE PO SCH (08:57)
--- NOTE | 2019-06-26 10:43 | MHDSPDOC ---
[facility] Discharge Summary Discharge Summary DATE OF ADMISSION: Jun 21, 2019 at 12:23 DATE OF DISCHARGE: 06/26/19 Discharge Ana Tena MRN: N/A Date of : N/A Date of Service: 06/26/2019 Diagnoses Unspecified depressive disorder. Unspecified anxiety disorder. History of Present Illness The patient a 23-year-old woman with no major past psychiatric history presents reportedly with hopelessness, misconstrued as suicidal thoughts. She is admitted out of an abundance of caution. She reports that she has had significant anxiety with panic attacks with significant somatic symptoms, dizziness and chest pain during these episodes. She reports having excessive anxiety that has gotten worse since she had her 2 children. She reports depressive symptoms of low mood, insomnia, difficulty enjoying and a sense of hopelessness has pervaded her life. The patient has presented after recently having her 2 children and feels that she has " depression." Consultants Involved Hospitalist/PCP screening Treatment and Progress On The Unit The patient was admitted to the inpatient unit. She did not meet involuntary criteria and was converted to involuntary status as she had been denying suicidal and homicidal ideation. She reportedly had concerning anxiety, however, she reports no history of concerning actions. She was tried on venlafaxine taper up to 112.5 mg with positive effects on her anxiety and depression with her low mood, fatigue, and loss of interest improving. She still was quite anxious on the unit about a variety of things and at times will be demanding as she was quite critical of other patients and did not like being placed with other patients that were more disturbed than she was. However, during the entirety of her stay she was denying suicidal or homicidal ideation and appeared fixated on staying until her anxiety was completely resolved. On the day of discharge she did not meet involuntary criteria as she had been denying suicidal or homicidal ideation, had been cooperating well with her more or less normal mental status exam. She was not significantly impaired by her anxiety and was able to function well. She did not meet criteria in my opinion for continued voluntary admission as her anxiety was well enough treated that it was not appropriate for further inpatient psychiatric hospitalization and would likely perform in my opinion much better in outpatient psychotherapy. Discharge Assessment 23-year-old woman with a history of mild anxiety and depression who presents with vague hopelessness misconstrued as suicidal thoughts. She does well with the venlafaxine and supportive treatment. She does appear fixated on treating her anxiety entirely before leaving, however, after discussion of the need for outpatient psychotherapy she relents and is discharged. Mental Status Examination General: Well dressed with good hygiene Speech: Spontaneous and fluid Thought processes: Linear and logical MSK: Smooth and coordinated gait, no signs of tremors or involuntary orofacial movements Thought content: Future orientated Abstract reasoning, and computation: Intact Description of associations: Intact Description of abnormal or psychotic thoughts: Denies any suicidal or homicidal ideation. Denies any auditory or visual hallucinations. Does not appear to be responding to internal stimuli. Does not appear to be endorsing any bizarre or paranoid ideation. Judgment: fair Insight: fair Orientation: Alert and orientated 3 Cognition: Grossly normal Recent and remote memory: Intact Attention span and concentration: Intact Fund of knowledge: Adequate Mood: "okay" Affect: Euthymic with a full range Follow Up The social work team worked during the predischarge meeting in order to evaluate for further issues of lethality address them fully before discharge. They worked on safety planning with the patient's family members in order to ensure that the patient will have a safe and effective discharge. Time Spent The amount of time spent in the coordination of care for this patient was approximately 90 minutes. Wednesday Vital Signs/I&Os Vital Signs Date Time Temp Pulse Resp B/P (MAP) Pulse Ox O2 Delivery O2 Flow Rate FiO2 06/26/19 06:27 97.8 90 14 114/65 (81) Room Air 06/21/19 13:35 100 Medications Scheduled Venlafaxine HCl (Venlafaxine HCl ER) 37.5 Mg Cap.er.24h, 112.5 MG PO DAILY for mood for 7 Days, #21 Scheduled PRN Nicotine (Nicotine Patch) 21 Mg Patch.td24, 1 PATCH TD DAILY PRN for smoking cessation for 30 Days, #30 Oxazepam (Oxazepam) 10 Mg Capsule, 10 MG PO DAILYPRN PRN for anxiety for 7 Days, #5 Allergies Coded Allergies: hydroxyzine (Verified Adverse Reaction, Mild, LIGHTHEADED, BLURRY VISION, 06/21/19) EMILIANO JUAREZ DO Jun 26, 2019 10:43
[2019-06-26] MEDS ORDERED: OXAZ10CA3 PO (11:34)
[2019-06-26] MEDS ORDERED: NICO21PAT TD (11:34)
[2019-06-26] MEDS ORDERED: VENL37.598 PO (11:34)
== END 2019-06-26 12:30 | disposition home or self-care (01) | DRG 756 ==
LOC: M ED 09:32 → M ED INP 12:23 → M PSY 13:50
PROVIDERS: ADMIT Psychiatry & Neurology Psychiatry; ATTEND Psychiatry & Neurology Addiction Medicine
DX: F41.9 Anxiety disorder, unspecified (principal); F32.9 Major depressive disorder, single episode, unspecified; Z81.8 Family history of other mental and behavioral disorders; R94.6 Abnormal results of thyroid function studies; Z79.899 Other long term (current) drug therapy; Z88.8 Allergy status to other drugs, medicaments and biological substances; Z63.8 Other specified problems related to primary support group; H93.90 Unspecified disorder of ear, unspecified ear

== ENCOUNTER → 2019-09-26 | Outpatient (REF) | payer BC ==
[~2019-09-26] MED LIST changes: +BUSP5TA PO; +FLUO10CA15 PO; +HYDR50TA70 PO; +NICO21PAT TD; +OXAZ10CA3 PO; +VENL37.598 PO
[2019-09-26 17:06] LABS: BASO % 0.5 % (0.0-1.0); EOS % 0.9 % (0.0-3.0); HEMATOCRIT 44.7 % (36.0-47.0); HEMOGLOBIN 14.3 g/dl (12.0-15.5); LYMPH # 1.5 10^3/uL (1.5-5.0); MEAN CORPUSCULAR HEMOGLOBIN 26.9 pg (27.0-33.0); MONO # 0.5 10^3/uL (0.0-0.8); MONO % 11.3 % (0.0-5.0); NEUTROPHILS # 2.4 10^3/uL (1.5-8.5); NEUTROPHILS % 54.3 % (36.0-66.0); PLATELET COUNT, AUTOMATED 188 10^3/uL (150-450); RED BLOOD COUNT 5.32 10^6/uL (4.00-5.40); WHITE BLOOD COUNT 4.4 10^3/uL (4.0-10.0)
[2019-09-26 17:24] LABS: ALBUMIN 3.6 GM/DL (3.2-5.2); ALT/SGPT 26 U/L (12-78); BILIRUBIN,TOTAL 0.4 MG/DL (0.2-1.0); BLOOD UREA NITROGEN 12 MG/DL (7-18); CALCIUM LEVEL 8.7 MG/DL (8.5-10.1); CARBON DIOXIDE LEVEL 27 MEQ/L (21-32); CHLORIDE LEVEL 104 MEQ/L (98-107); CHOLESTEROL LEVEL 161 MG/DL (<200); CHOLESTEROL RISK RATIO 2.596 (<5); CREATININE FOR GFR 0.79 MG/DL (0.55-1.30); FREE T4 1.18 NG/DL (0.76-1.46); GLOMERULAR FILTRATION RATE > 60.0 (>60); GLUCOSE, FASTING 86 MG/DL (70-100); HDL CHOLESTEROL 62 MG/DL (>40); LDL CHOLESTEROL 82 MG/DL (<100); NON-HDL-C 99 MG/DL; POTASSIUM SERUM 3.8 MEQ/L (3.5-5.1); SODIUM LEVEL 136 MEQ/L (136-145); TOTAL PROTEIN 7.1 GM/DL (6.4-8.2); TRIGLYCERIDES LEVEL 86 MG/DL (<150)
== END ==
LOC: M LAB REF 16:25
PROVIDERS: ATTEND Physician Assistant
DX: E03.8 Other specified hypothyroidism (principal); Z13.228 Encounter for screening for other metabolic disorders; H43.392 Other vitreous opacities, left eye; Z13.9 Encounter for screening, unspecified

== ENCOUNTER → 2020-02-02 | Outpatient (CLI) | payer BC ==
[~2020-02-02] MED LIST changes: +ATIV1TAB10; +BACT800T5 PO; +ESCI20TA; -FLUO10CA15 PO; +FLUO10CA16 PO; +LEVO50TA5; +ONDA4TAB6 PO; +VITA200016
== END ==
LOC: M LAB 15:30
PROVIDERS: ATTEND Physician Assistant
DX: Z32.00 Encounter for pregnancy test, result unknown (principal)

== ENCOUNTER 2020-05-06 15:22 | Emergency (ER) | payer BC ==
[~2020-05-06] VITALS: Ht 170.2 cm; Wt 109.3 kg
[~2020-05-06 15:22] MED LIST changes: -ATIV1TAB10; -BACT800T5 PO; -ESCI20TA; -LEVO50TA5; -ONDA4TAB6 PO; -VITA200016
[2020-05-06] MEDS ORDERED: LEVO50TA5 (15:31)
[2020-05-06] MEDS ORDERED: ATIV1TAB10 (15:31)
[2020-05-06] MEDS ORDERED: ESCI20TA (15:31)
[2020-05-06] MEDS ORDERED: VITA200016 (15:31)
[2020-05-06] MEDS ORDERED: ONDANSETRON 4MG/2ML VIAL IV ONE (16:00)
[2020-05-06 16:18] LABS: BASO # 0.1 10^3/uL (0.0-0.2); BASO % 0.8 % (0.0-1.0); EOS # 0.2 10^3/uL (0.0-0.5); EOS % 2.5 % (0.0-3.0); HEMATOCRIT 45.2 % (36.0-47.0); HEMOGLOBIN 14.1 g/dl (12.0-15.5); LYMPH # 1.8 10^3/uL (1.5-5.0); LYMPH % 29.1 % (24.0-44.0); MEAN CORPUSCULAR HEMOGLOBIN 26.6 pg (27.0-33.0); MEAN CORPUSCULAR HGB CONC 31.2 g/dl (32.0-36.5); MEAN CORPUSCULAR VOLUME 85.3 fl (80.0-96.0); MONO # 0.4 10^3/uL (0.0-0.8); MONO % 6.2 % (0.0-5.0); NEUTROPHILS # 3.7 10^3/uL (1.5-8.5); NEUTROPHILS % 61.2 % (36.0-66.0); PLATELET COUNT, AUTOMATED 213 10^3/uL (150-450); WHITE BLOOD COUNT 6.1 10^3/uL (4.0-10.0)
[2020-05-06 16:45] LABS: ALBUMIN 3.8 GM/DL (3.2-5.2); BILIRUBIN,DIRECT 0.1 MG/DL (0.0-0.2); BILIRUBIN,TOTAL 0.4 MG/DL (0.2-1.0); TOTAL PROTEIN 7.3 GM/DL (6.4-8.2)
[2020-05-06] MEDS ORDERED: BACT800T5 PO (17:34)
[2020-05-06] MEDS ORDERED: ONDA4TAB6 PO (17:34)
[2020-05-06 17:41] VITALS: BP 110/58
== END 2020-05-06 18:19 | disposition home or self-care (01) ==
LOC: M ED 15:22
DX: N39.0 Urinary tract infection, site not specified (principal); E03.9 Hypothyroidism, unspecified; F32.9 Major depressive disorder, single episode, unspecified; F41.0 Panic disorder [episodic paroxysmal anxiety]; Z88.8 Allergy status to other drugs, medicaments and biological substances; Z79.899 Other long term (current) drug therapy
CPT/HCPCS: 80047; 80076; 81001; 83690; 84702; 85025; 87086; 96374; 99284; J2405

== ENCOUNTER 2020-06-12 20:29 | Emergency (ER) | payer BC ==
[~2020-06-12] VITALS: Ht 167.6 cm; Wt 109.6 kg
[~2020-06-12 20:29] MED LIST changes: +ATIV1TAB10; +BACT800T5 PO; +ESCI20TA; +LEVO50TA5; +ONDA4TAB6 PO; +VITA200016
[2020-06-12 21:14] LABS: BASO % 0.6 % (0.0-1.0); EOS # 0.1 10^3/uL (0.0-0.5); EOS % 1.7 % (0.0-3.0); HEMOGLOBIN 12.7 g/dl (12.0-15.5); MEAN CORPUSCULAR HEMOGLOBIN 26.6 pg (27.0-33.0); MEAN CORPUSCULAR VOLUME 85.8 fl (80.0-96.0); MONO # 0.5 10^3/uL (0.0-0.8); MONO % 7.7 % (0.0-5.0); NEUTROPHILS # 4.3 10^3/uL (1.5-8.5); NEUTROPHILS % 60.9 % (36.0-66.0); PLATELET COUNT, AUTOMATED 195 10^3/uL (150-450); RED BLOOD COUNT 4.78 10^6/uL (4.00-5.40)
[2020-06-12 21:39] LABS: ALBUMIN 3.5 GM/DL (3.2-5.2); BILIRUBIN,DIRECT 0.1 MG/DL (0.0-0.2); BILIRUBIN,TOTAL 0.3 MG/DL (0.2-1.0); TOTAL PROTEIN 6.7 GM/DL (6.4-8.2)
[2020-06-12] MEDS ORDERED: KETOROLAC 30 MG/ML 1ML VIAL IV ONE (22:15)
[2020-06-12] MEDS ORDERED: ONDANSETRON 4MG/2ML VIAL IV ONE (22:15)
[2020-06-12] MEDS ORDERED: NS 1,000 ML IV ONE (22:15)
--- NOTE | 2020-06-13 00:35 | REPVR ---
PROCEDURE INFORMATION: Exam: US Nonobstetric Pelvis; Complete Exam date and time: 06/12/2020 12:01 AM Age: 24 years old Clinical indication: Pelvic pain TECHNIQUE: Imaging protocol: Transabdominal pelvic nonobstetric ultrasound. Complete exam. Real time ultrasound with image documentation. COMPARISON: CT ABD PELVIS W/O CONTRAST 09/29/2015 2:33 PM FINDINGS: Uterus/cervix: Uterus measures 8.8 x 4.4 x 6.5 cm. Endometrial stripe measures 7.9 mm in thickness. Unremarkable uterus. Right adnexa: Right ovary measures 3.0 x 2.4 x 2.9 cm. Normal vascular flow. No masses. Left adnexa: Left ovary measures 3.3 x 2.2 x 3.7 cm. Normal vascular flow. No masses. Intraperitoneal space: No free fluid. Urinary bladder: Bladder is unremarkable. IMPRESSION: Unremarkable pelvic ultrasound. Electronically signed by: Moose Daugherty On 06/13/2020 00:34:16 AM
[2020-06-13] MEDS ORDERED: DICYCLOMINE 10 MG CAP PO ONE (01:15)
[2020-06-13] MEDS ORDERED: DICY10CA13 PO (01:15)
[2020-06-13 01:30] VITALS: BP 112/62
== END 2020-06-13 01:39 | disposition home or self-care (01) ==
LOC: M ED 20:29
DX: R10.2 Pelvic and perineal pain (principal); R10.30 Lower abdominal pain, unspecified; E03.9 Hypothyroidism, unspecified; N18.9 Chronic kidney disease, unspecified; F17.200 Nicotine dependence, unspecified, uncomplicated; Z79.890 Hormone replacement therapy; Z79.899 Other long term (current) drug therapy; Z87.440 Personal history of urinary (tract) infections
CPT/HCPCS: 76856; 80047; 80076; 81001; 83690; 84702; 85025; 93976; 96374; 96375; 99284; J1885; J2405

== ENCOUNTER 2020-07-07 21:35 | Emergency (ER) | payer BC ==
[~2020-07-07] VITALS: Ht 165.1 cm; Wt 109.3 kg
[~2020-07-07 21:35] MED LIST changes: +DICY10CA13 PO
[2020-07-07 21:36] VITALS: BP 126/74
[2020-07-07] MEDS ORDERED: CIPR-249 PO (22:25)
[2020-07-07] MEDS ORDERED: CIPROFLOXACIN 500MG TABLET PO ONE (22:30)
== END 2020-07-07 22:37 | disposition home or self-care (01) ==
LOC: M ED 21:35
DX: N39.0 Urinary tract infection, site not specified (principal); E03.9 Hypothyroidism, unspecified; F32.9 Major depressive disorder, single episode, unspecified; F41.0 Panic disorder [episodic paroxysmal anxiety]; F17.290 Nicotine dependence, other tobacco product, uncomplicated; Z88.8 Allergy status to other drugs, medicaments and biological substances; Z79.899 Other long term (current) drug therapy

== ENCOUNTER 2020-07-11 08:02 | Emergency (ER) | payer BC ==
[~2020-07-11] VITALS: Ht 167.6 cm; Wt 110.9 kg
[~2020-07-11 08:02] MED LIST changes: +CIPR-249 PO
[2020-07-11] MEDS ORDERED: NS 1,000 ML IV ONE (08:30)
[2020-07-11] MEDS ORDERED: METOCLOPRAMIDE INJ 10MG/2ML VIAL (J2765 PER 1) IV ONE (08:30)
[2020-07-11 09:05] LABS: BASO # 0.1 10^3/uL (0.0-0.2); BASO % 0.8 % (0.0-1.0); EOS # 0.2 10^3/uL (0.0-0.5); EOS % 2.8 % (0.0-3.0); HEMATOCRIT 41.9 % (36.0-47.0); HEMOGLOBIN 13.3 g/dl (12.0-15.5); LYMPH # 2.5 10^3/uL (1.5-5.0); LYMPH % 39.1 % (24.0-44.0); MEAN CORPUSCULAR HGB CONC 31.7 g/dl (32.0-36.5); MONO # 0.5 10^3/uL (0.0-0.8); MONO % 8.1 % (0.0-5.0); NEUTROPHILS # 3.1 10^3/uL (1.5-8.5); PLATELET COUNT, AUTOMATED 194 10^3/uL (150-450); RED BLOOD COUNT 4.93 10^6/uL (4.00-5.40); WHITE BLOOD COUNT 6.4 10^3/uL (4.0-10.0)
--- NOTE | 2020-07-11 09:23 | REP ---
INDICATION: hx of recurring UTI with n/pain r/o pylo. COMPARISON: Abdomen and pelvis CT dated 09/29/2015. TECHNIQUE: Bilateral renal ultrasound. FINDINGS: The right kidney measures 11.3 x 4.6 x 4.8 cm. The left kidney measures 11.0 x 4.7 x 5.1 cm. The kidneys are normal size. There is no calculus or hydronephrosis on the right or left. There are no solid or cystic renal masses on the right or the left. A column of Rudy is incidentally identified in the left kidney. This is an anatomic variant. With Doppler ultrasound there are bilateral ureteral jets into the bladder. IMPRESSION: Essentially negative renal ultrasound. <Electronically signed by Jose Angel Araiza > 07/11/20 0919
[2020-07-11 09:24] LABS: HCG, SERUM QUALITATIVE NEGATIVE (NEGATIVE)
[2020-07-11 09:29] LABS: ALBUMIN 3.3 GM/DL (3.2-5.2); ALT/SGPT 24 U/L (12-78); BILIRUBIN,DIRECT < 0.1 MG/DL (0.0-0.2); BILIRUBIN,TOTAL 0.3 MG/DL (0.2-1.0); BLOOD UREA NITROGEN 12 MG/DL (7-18); CARBON DIOXIDE LEVEL 28 MEQ/L (21-32); CHLORIDE LEVEL 104 MEQ/L (98-107); CREATININE FOR GFR 0.89 MG/DL (0.55-1.30); GLOMERULAR FILTRATION RATE > 60.0 (>60); GLUCOSE, FASTING 89 MG/DL (70-100); LIPASE 150 U/L (73-393); POTASSIUM SERUM 3.5 MEQ/L (3.5-5.1); SODIUM LEVEL 138 MEQ/L (136-145); TOTAL PROTEIN 7.2 GM/DL (6.4-8.2)
[2020-07-11] MEDS ORDERED: PROM12.56 PO (09:44)
[2020-07-11 09:51] VITALS: BP 93/50
== END 2020-07-11 10:00 | disposition home or self-care (01) ==
LOC: M ED 08:02
DX: N39.0 Urinary tract infection, site not specified (principal); F32.9 Major depressive disorder, single episode, unspecified; F41.9 Anxiety disorder, unspecified; E03.9 Hypothyroidism, unspecified; F17.200 Nicotine dependence, unspecified, uncomplicated; Z79.2 Long term (current) use of antibiotics; Z79.899 Other long term (current) drug therapy
CPT/HCPCS: 36415; 76775; 80048; 80076; 83690; 84703; 85025; 96361; 96374; 99284; J2765

== ENCOUNTER → 2020-08-11 | Outpatient (REF) | payer BC ==
[~2020-08-11] MED LIST changes: -ESCI20TA; +ESCI20TA16; +PROM12.56 PO
[2020-08-11 14:30] LABS: URINE PREG TEST POSITIVE (NEGATIVE)
== END ==
LOC: M LAB REF 13:59
PROVIDERS: ATTEND Physician Assistant Medical
DX: N91.2 Amenorrhea, unspecified (principal)

== ENCOUNTER 2020-08-20 21:02 | Emergency (ER) | payer BC ==
[~2020-08-20] VITALS: Ht 167.6 cm; Wt 112.7 kg
[2020-08-20 21:02] VITALS: BP 121/66
--- OUTSIDE RECORDS SUMMARY | 2020-08-20 21:20 | CCD ---
Author Author [facility] Organization [facility] Address Unknown Phone Unavailable Care Team Providers Care Cheese Pancake Roller Name Role Phone Carol EUBANKS MD Unavailable Unavailable Carol EUBANKS MD Unavailable Unavailable Carol EUBANKS MD Unavailable Unavailable Carol EUBANKS MD Unavailable Unavailable Carol EUBANKS MD Unavailable Unavailable Carol EUBANKS MD Unavailable Unavailable Carol EUBANKS MD Unavailable Unavailable Carol EUBANKS MD Unavailable Unavailable Carol EUBANKS MD Unavailable Unavailable Carol EUBANKS MD Unavailable Unavailable Carol EUBANKS MD Unavailable Unavailable Carol EUBANKS MD Unavailable Unavailable Carol EUBANKS MD Unavailable Unavailable Carol EUBANKS MD Unavailable Unavailable Carol EUBANKS MD Unavailable Unavailable Carol EUBANKS MD Unavailable Unavailable Carol EUBANKS MD Unavailable Unavailable Carol EUBANKS MD Unavailable Unavailable Carol EUBANKS MD Unavailable Unavailable Carol EUBANKS MD Unavailable Unavailable Carol EUBANKS MD Unavailable Unavailable Carol EUBANKS MD Unavailable Unavailable Carol EUBANKS MD Unavailable Unavailable Carol EUBANKS MD Unavailable Unavailable Carol EUBANKS MD Unavailable Unavailable Carol EUBANKS MD Unavailable Unavailable Carol EUBANKS MD Unavailable Unavailable Carol EUBANKS MD Unavailable Unavailable Carol EUBANKS MD Unavailable Unavailable Carol EUBANKS MD Unavailable Unavailable Carol EUBANKS MD Unavailable Unavailable Carol EUBANKS MD Unavailable Unavailable YAYACarol SUNG MD Unavailable Unavailable Carol EUBANKS MD Unavailable Unavailable Carol EUBANKS MD Unavailable Unavailable Carol EUBANKS MD Unavailable Unavailable Carol EUBANKS MD Unavailable Unavailable Carol EUBANKS MD Unavailable Unavailable Carol EUBANKS MD Unavailable Unavailable Carol EUBANKS MD Unavailable Unavailable Carol EUBANKS MD Unavailable Unavailable Carol EUBANKS MD Unavailable Unavailable aCrol EUBANKS MD Unavailable Unavailable Carol EUBANKS MD Unavailable Unavailable Carol EUBANKS MD Unavailable Unavailable Carol EUBANKS MD Unavailable Unavailable Carol EUBANKS MD Unavailable Unavailable Carol EUBANKS MD Unavailable Unavailable Carol EUBANKS MD Unavailable Unavailable Carol EUBANKS MD Unavailable Unavailable Carol EUBANKS MD Unavailable Unavailable Carol EUBANKS MD Unavailable Unavailable Carol EUBANKS MD Unavailable Unavailable Carol EUBANKS MD Unavailable Unavailable Carol EUBANKS MD Unavailable Unavailable Carol EUBANKS MD Unavailable Unavailable Carol EUBANKS MD Unavailable Unavailable Carol EUBANKS MD Unavailable Unavailable Carol EUBANKS MD Unavailable Unavailable Carol EUBANKS MD Unavailable Unavailable Carol EUBANKS MD Unavailable Unavailable Carol EUBANKS MD Unavailable Unavailable Carol EUBANKS MD Unavailable Unavailable Carol EUBANKS MD Unavailable Unavailable Carol EUBANKS MD Unavailable Unavailable Carol EUBANKS MD Unavailable Unavailable Carol EUBANKS MD Unavailable Unavailable Carol EUBANKS MD Unavailable Unavailable Carol EUBANKS MD Unavailable Unavailable Carol EUBANKS MD Unavailable Unavailable Carol EUBANKS MD Unavailable Unavailable Carol EUBANKS MD Unavailable Unavailable Carol EUBANKS MD Unavailable Unavailable Carol EUBANKS MD Unavailable Unavailable YAYA, Carol SEWELL MD Unavailable Unavailable YAYA, Carol SEWELL MD Unavailable Unavailable YAYA, Carol SEWELL MD Unavailable Unavailable YAYA, Carol SEWELL MD Unavailable Unavailable YAYA, Carol SEWELL MD Unavailable Unavailable YAYA, Carol SEWELL MD Unavailable Unavailable YAYA, Carol SEWELL MD Unavailable Unavailable YAYA, Carol SEWELL MD Unavailable Unavailable YAYA, Carol SEWELL MD Unavailable Unavailable LOFTON, DIOGENES ATTILA RPA-C Unavailable Unavailable LOFTON, DIOGENES ATTILA RPA-C Unavailable Unavailable LOFTON, DIOGENES ATTILA RPA-C Unavailable Unavailable LOFTON, DIOGENES ATTILA RPA-C Unavailable Unavailable LOFTON, DIOGENES ATTILA RPA-C Unavailable Unavailable LOFTON, DIOGENES ATTILA RPA-C Unavailable Unavailable LOFTON, DIOGENES ATTILA RPA-C Unavailable Unavailable LOFTON, DIOGENES ATTILA RPA-C Unavailable Unavailable LOFTON, DIOGENES ATTILA RPA-C Unavailable Unavailable LOFTON, DIOGENES ATTILA RPA-C Unavailable Unavailable LOFTON, DIOGENES ATTILA RPA-C Unavailable Unavailable LOFTON, DIOGENES ATTILA RPA-C Unavailable Unavailable LOFTON, DIOGENES ATTILA RPA-C Unavailable Unavailable LOFTON, DIOGENES ATTILA RPA-C Unavailable Unavailable LOFTON, DIOGENES ATTILA RPA-C Unavailable Unavailable LOFTON, DIOGENES ATTILA RPA-C Unavailable Unavailable LOFTON, DIOGENES ATTILA RPA-C Unavailable Unavailable LOFTON, DIOGENES ATTILA RPA-C Unavailable Unavailable LOFTON, DIOGENES ATTILA RPA-C Unavailable Unavailable LOFTON, DIOGENES ATTILA RPA-C Unavailable Unavailable LOFTON, DIOGENES ATTILA RPA-C Unavailable Unavailable LOFTON, DIOGENES ATTILA RPA-C Unavailable Unavailable LOFTON, DIOGENES ATTILA RPA-C Unavailable Unavailable LOFTON, DIOGENES ATTILA RPA-C Unavailable Unavailable LOFTON, DIOGENES ATTILA RPA-C Unavailable Unavailable LOFTON, DIOGENES ATTILA RPA-C Unavailable Unavailable LOFTON, DIOGENES ATTILA RPA-C Unavailable Unavailable LOFTON, DIOGENES ATTILA RPA-C Unavailable Unavailable LOFTON, DIOGENES ATTILA RPA-C Unavailable Unavailable LOFTON, DIOGENES ATTILA RPA-C Unavailable Unavailable LOFTON, DIOGENES ATTILA RPA-C Unavailable Unavailable LOFTON, DIOGENES ATTILA RPA-C Unavailable Unavailable LOFTON, DIOGENES ATTILA RPA-C Unavailable Unavailable LOFTON, DIOGENES ATTILA RPA-C Unavailable Unavailable LOFTON, DIOGENES ATTILA RPA-C Unavailable Unavailable LOFTON, DIOGENES ATTILA RPA-C Unavailable Unavailable LOFTON, DIOGENES ATTILA RPA-C Unavailable Unavailable LOFTON, DIOGENES ATTILA RPA-C Unavailable Unavailable LOFTON, DIOGENES ATTILA RPA-C Unavailable Unavailable [facility], [facility] LO[facility]ON [facility] ATTILA Unavailable Unavailable Re-disclosure Warning The records that you are about to access may contain information from federally-assisted alcohol or drug abuse programs. If such information is present, then the following federally mandated warning applies: This information has been disclosed to you from records protected by federal confidentiality rules (42 CFR part 2). The federal rules prohibit you from making any further disclosure of this information unless further disclosure is expressly permitted by the written consent of the person to whom it pertains or as otherwise permitted by 42 CFR part 2. A general authorization for the release of medical or other information is NOT sufficient for this purpose. The Federal rules restrict any use of the information to criminally investigate or prosecute any alcohol or drug abuse patient.The records that you are about to access may contain highly sensitive health information, the redisclosure of which is protected by Article 27-F of the [facility] Public Health law. If you continue you may have access to information: Regarding HIV / AIDS; Provided by facilities licensed or operated by the [facility] Office of Mental Health; or Provided by the [facility] Office for People With Developmental Disabilities. If such information is present, then the following [facility] mandated warning applies: This information has been disclosed to you from confidential records which are protected by state law. State law prohibits you from making any further disclosure of this information without the specific written consent of the person to whom it pertains, or as otherwise permitted by law. Any unauthorized further disclosure in violation of state law may result in a fine or intermediate sentence or both. A general authorization for the release of medical or other information is NOT sufficient authorization for further disc losure. Allergies and Adverse Reactions Type Description Substance Reaction Status Data Source(s ) Drug allergy HYDROXYZINE HYDROXYZINE lightheaded, blurry vision [facility] Family History Family Member Name Family Member Gender Family Member Status Date o f Status Description Data Source(s) Unknown Unknown Problem MEDENT ([facility]) Unknown Unknown Problem MEDENT ([facility] Unknown Unknown Problem MEDENT ([facility]) Encounters Encounter Providers Location Date Indications Data Source(s ) Outpatient Attender: ATTILA LOFTON RPA-C 05/06/2020 12:04:03 PM EDT [facility] 12:04:02 PM EDT [facility] 04/18/2020 05:02:01 PM EDT [facility]/05/2020 01:46:03 PM EDT [facility] 03/27/2020 07:49:01 AM EDT [facility] 02/29/2020 04:02:01 PM EDT [facility] 02/20/2020 09:54:01 AM EDT [facility] Outpatient Attender: NILDA STROUD [facility] 02/05/2020 04:32:02 PM EDT [facility] Outpatient Attender: ATTILA LOFTON RPA-C 02/05/2020 04:14:02 PM EDT [facility] Outpatient Attender: NILDA STROUD [facility] 02/05/2020 11:13:00 AM EDT [facility] Outpatient Attender: ATTILA LOFTON RPA-C 02/02/2020 03:12:01 PM EDT [facility] Outpatient Attender: ATTILA LOFTON RPA-C 02/02/2020 03:12:00 PM EDT [facility] Outpatient Attender: ATTILA LOFTON RPA-C [facility] 02/02/2020 03:11:01 PM EDT [facility] Outpatient Attender: ATTILA LOFTON RPA-C 02/02/2020 02:49:01 PM EDT [facility] Outpatient Attender: ATTILA LOFTON RPA-C 02/02/2020 12:57:01 PM EDT [facility] 01/30/2020 01:52:01 PM [facility] Outpatient Attender: ATTILA MARIN 01/24/2020 03:39:03 PM [facility] Outpatient Attender: ATTILA MARIN 01/15/2020 03:07:01 PM [facility] Outpatient Attender: DONATO EUBANKS MD 01/15/2020 03:06:01 P [facility] Outpatient Attender: DONATO EUBANKS MD 01/15/2020 12:05:01 P [facility] Outpatient Attender: DONATO EUBANKS MD 01/02/2020 08:01:25 P [facility] Outpatient Attender: DONATO EUBANKS MD 12/27/2019 02:32:01 P [facility] Outpatient Attender: DONATO EUBANKS MD 12/23/2019 12:18:35 A M [facility] Outpatient Attender: DONATO EUBANKS MD 11/16/2019 05:00:03 P [facility] Outpatient Attender: DONATO EUBANKS MD 10/17/2019 01:42:01 P [facility] Outpatient Attender: DONATO EUBANKS MD 10/06/2019 02:48:01 P [facility] Outpatient Attender: DONATO EUBANKS MD 10/05/2019 03:04:03 P [facility] Outpatient Attender: DONATO EUBANKS MD 10/05/2019 03:04:02 P [facility] Outpatient Attender: DONATO EUBANKS MD 09/29/2019 09:01:07 P [facility] Outpatient Attender: DONATO EUBANKS MD 09/29/2019 02:18:01 P [facility] Outpatient Attender: DONATO EUBANKS MD 09/29/2019 02:17:00 P [facility] Outpatient Attender: DONATO EUBANKS MD 09/29/2019 02:16:01 P [facility] Outpatient Attender: DONATO EUBANKS MD 09/28/2019 12:52:03 P [facility] Outpatient Attender: DONATO EUBANKS MD 09/28/2019 12:52:01 P [facility] Outpatient Attender: DONATO EUBANKS MD 09/28/2019 12:50:05 P [facility] Outpatient Attender: DONATO EUBANKS MD 09/28/2019 11:11:00 A [facility] Outpatient Attender: DONATO EUBANKS MD 09/26/2019 11:18:01 A [facility] Outpatient Attender: DONATO EUBANKS MD 09/26/2019 11:15:01 A [facility] Outpatient Attender: DONATO EUBANKS MD 09/20/2019 12:59:01 P [facility] Outpatient Attender: DONATO EUBANKS MD [facility] 09/06/2019 02:59:00 P [facility] Outpatient Attender: DONATO EUBANKS MD ALL 08/29/2019 02:48:00 P [facility] Outpatient Attender: DONATO EUBANKS MD [facility] 08/29/2019 09:57:01 A [facility] Outpatient Attender: DONATO EUBANKS MD [facility] 08/14/2019 04:25:01 P [facility] Outpatient Attender: DONATO EUBANKS MD [facility] 08/04/2019 02:45:01 P [facility] Outpatient Attender: DONATO EUBANKS MD [facility] 07/03/2019 04:46:01 A [facility] Outpatient Attender: DONATO EUBANKS MD [facility] 07/01/2019 12:00:13 A [facility] Medications Medication Brand Name Start Date Product Form Dose Route Admi nistrative Instructions Pharmacy Instructions Status Indications Reaction Description Data Source(s) 0.5 mg 07/31/2020 12:00:00 AM EST tablet 14 TAKE ONE TABLET BY MOUTH EVERY DAY NEEDED FOR SEVERE ANXIETY MAXIMUM DAILY DOSE = 1 TAKE ONE TABLET BY MOUTH EVERY DAY NEEDED FOR SEVERE ANXIETY MAXIMUM DAILY DOSE = 1 SOLD: 07/31/2020 [facility] 500 mg 07/08/2020 12:00:00 AM EST tablet 14 TAKE ONE TABLET BY MOUTH TWICE A DAY TAKE ONE TABLET BY MOUTH TWICE A DAY SOLD: 07/08/2020 [facility] 0.5 mg 06/24/2020 12:00:00 AM EST tablet 15 TAKE ONE TABLET BY MOUTH EVERY DAY NEEDED FOR SEVERE ANXIETY MAXIMUM DAILY DOSE = 1 TAKE ONE TABLET BY MOUTH EVERY DAY NEEDED FOR SEVERE ANXIETY MAXIMUM DAILY DOSE = 1 SOLD: 06/24/2020 [facility] Sulfamethoxazole 800 MG / Trimethoprim 160 MG Oral Tab let 800-160 mg SULFAMETHOXAZOLE/TRIMETHOPRIM 05/06/2020 12:00:00 AM EDT tablet 20 TAKE ONE TABLET BY MOUTH EVERY 12 HOURS TAKE ONE TABLET BY MOUTH EVERY 12 HOURS SOLD: 05/06/2020 [facility] 4 mg 05/06/2020 12:00:00 AM EDT tablet,disintegrating 8 DISSOLVE 1 TABLET BY MOUTH ON THE TONGUE EVERY 6-8 HOURS NEEDED FOR NAUSEA/VOMITING DISSOLVE 1 TABLET BY MOUTH ON THE TONGUE EVERY 6-8 HOURS NEEDED FOR NAUSEA/VOMITING SOLD: 05/06/2020 [facility] 0.5 mg 05/06/2020 12:00:00 AM EDT tablet 15 TAKE ONE TABLET BY MOUTH EVERY DAY NEEDED FOR SEVERE ANXIETY MAXIMUM DAILY DOSE = 1 TAKE ONE TABLET BY MOUTH EVERY DAY NEEDED FOR SEVERE ANXIETY MAXIMUM DAILY DOSE = 1 SOLD: 05/06/2020 [facility] 0.5 mg 04/19/2020 12:00:00 AM EDT tablet 15 TAKE ONE TABLET BY MOUTH EVERY DAY NEEDED FOR SEVERE ANXIETY MAXIMUM DAILY DOSE = 1 TABLET TAKE ONE TABLET BY MOUTH EVERY DAY NEEDED FOR SEVERE ANXIETY MAXIMUM DAILY DOSE = 1 TABLET SOLD: 04/22/2020 [facility] Escitalopram 20 MG Oral Tablet ESCITALOPRAM OXALATE 04/06/2020 1 2:00:00 AM EDT tablet 30 TAKE ONE TABLET BY MOUTH EVERY D AY TAKE ONE TABLET BY MOUTH EVERY DAY SOLD: 06/24/2020 [facility] Escitalopram 20 MG Oral Tablet ESCITALOPRAM OXALATE 04/06/2020 1 2:00:00 AM EDT tablet 30 TAKE ONE TABLET BY MOUTH EVERY D AY TAKE ONE TABLET BY MOUTH EVERY DAY SOLD: 07/25/2020 [facility] Escitalopram 20 MG Oral Tablet ESCITALOPRAM OXALATE 04/06/2020 1 2:00:00 AM EDT tablet 30 TAKE ONE TABLET BY MOUTH EVERY D AY TAKE ONE TABLET BY MOUTH EVERY DAY SOLD: 04/06/2020 [facility] Escitalopram 20 MG Oral Tablet ESCITALOPRAM OXALATE 04/06/2020 1 2:00:00 AM EDT tablet 30 TAKE ONE TABLET BY MOUTH EVERY D AY TAKE ONE TABLET BY MOUTH EVERY DAY SOLD: 05/13/2020 [facility] 0.5 mg 03/27/2020 12:00:00 AM EDT tablet 15 TAKE ONE TABLET BY MOUTH EVERY DAY NEEDED FOR SEVERE ANXIETY MAXIMUM DAILY DOSE = 1 TAKE ONE TABLET BY MOUTH EVERY DAY NEEDED FOR SEVERE ANXIETY MAXIMUM DAILY DOSE = 1 SOLD: 03/27/2020 [facility] 0.5 mg 03/01/2020 12:00:00 AM EDT tablet 15 TAKE ONE TABLET BY MOUTH EVERY DAY NEEDED FOR SEVERE ANXIETY MAXIMUM DAILY DOSE = 1 TAKE ONE TABLET BY MOUTH EVERY DAY NEEDED FOR SEVERE ANXIETY MAXIMUM DAILY DOSE = 1 SOLD: 03/01/2020 [facility] 0.5 mg 02/10/2020 12:00:00 AM EDT tablet 15 TAKE ONE TABLET BY MOUTH EVERY DAY NEEDED SEVERE ANXIETY, MAXIMUM DAILY DOSE = 1 TAKE ONE TABLET BY MOUTH EVERY DAY NEEDED SEVERE ANXIETY, MAXIMUM DAILY DOSE = 1 SOLD: 02/14/2020 [facility] Escitalopram 20 MG Oral Tablet ESCITALOPRAM OXALATE 01/30/2020 1 2:00:00 AM EDT tablet 30 TAKE ONE TABLET BY MOUTH EVERY D AY TAKE ONE TABLET BY MOUTH EVERY DAY SOLD: 01/30/2020 [facility] Escitalopram 20 MG Oral Tablet ESCITALOPRAM OXALATE 01/30/2020 1 2:00:00 AM EDT tablet 30 TAKE ONE TABLET BY MOUTH EVERY D AY TAKE ONE TABLET BY MOUTH EVERY DAY SOLD: 03/04/2020 [facility] 0.5 mg 01/15/2020 12:00:00 AM EDT tablet 15 TAKE ONE TABLET BY MOUTH EVERY DAY NEEDED FOR SEVERE ANXIETY MAXIMUM DAILY DOSE = 1 TAKE ONE TABLET BY MOUTH EVERY DAY NEEDED FOR SEVERE ANXIETY MAXIMUM DAILY DOSE = 1 SOLD: 01/16/2020 [facility] 0.5 mg 12/28/2019 12:00:00 AM EDT tablet 15 TAKE ONE TABLET BY MOUTH EVERY DAY NEEDED FOR SEVERE ANXIETY MAXIMUM DAILY DOSE = 1 TAKE ONE TABLET BY MOUTH EVERY DAY NEEDED FOR SEVERE ANXIETY MAXIMUM DAILY DOSE = 1 SOLD: 12/29/2019 [facility] Escitalopram 20 MG Oral Tablet ESCITALOPRAM OXALATE 11/17/2019 1 2:00:00 AM EDT tablet 30 TAKE ONE TABLET BY MOUTH EVERY D AY TAKE ONE TABLET BY MOUTH EVERY DAY SOLD: 11/24/2019 [facility] 0.5 mg 11/17/2019 12:00:00 AM EDT tablet 15 TAKE ONE TABLET BY MOUTH EVERY DAY NEEDED SEVERE ANXIETY MAXIMUM DAILY DOSE = 1 TAKE ONE TABLET BY MOUTH EVERY DAY NEEDED SEVERE ANXIETY MAXIMUM DAILY DOSE = 1 SOLD: 11/24/2019 [facility] Escitalopram 20 MG Oral Tablet ESCITALOPRAM OXALATE 11/17/2019 1 2:00:00 AM EDT tablet 30 TAKE ONE TABLET BY MOUTH EVERY D AY TAKE ONE TABLET BY MOUTH EVERY DAY SOLD: 12/29/2019 [facility] 0.5 mg 10/18/2019 12:00:00 AM EDT tablet 15 TAKE ONE TABLET BY MOUTH EVERY DAY NEEDED FOR SEVERE ANXIETY MAXIMUM DAILY DOSE = 1 TAKE ONE TABLET BY MOUTH EVERY DAY NEEDED FOR SEVERE ANXIETY MAXIMUM DAILY DOSE = 1 SOLD: 10/19/2019 [facility] 50 mcg 09/28/2019 12:00:00 AM EST tablet 30 TAKE ONE TABLET BY MOUTH EVERY DAY TAKE ONE TABLET BY MOUTH EVERY DAY SOLD: 05/24/2020 [facility] 50 mcg 09/28/2019 12:00:00 AM EST tablet 30 TAKE ONE TABLET BY MOUTH EVERY DAY TAKE ONE TABLET BY MOUTH EVERY DAY SOLD: 07/25/2020 [facility] 50 mcg 09/28/2019 12:00:00 AM EST tablet 30 TAKE ONE TABLET BY MOUTH EVERY DAY TAKE ONE TABLET BY MOUTH EVERY DAY SOLD: 11/04/2019 [facility] 50 mcg 09/28/2019 12:00:00 AM EST tablet 30 TAKE ONE TABLET BY MOUTH EVERY DAY TAKE ONE TABLET BY MOUTH EVERY DAY SOLD: 12/05/2019 [facility] 50 mcg 09/28/2019 12:00:00 AM EST tablet 30 TAKE ONE TABLET BY MOUTH EVERY DAY TAKE ONE TABLET BY MOUTH EVERY DAY SOLD: 09/29/2019 [facility] 50 mcg 09/28/2019 12:00:00 AM EST tablet 30 TAKE ONE TABLET BY MOUTH EVERY DAY TAKE ONE TABLET BY MOUTH EVERY DAY SOLD: 07/04/2020 [facility] 50 mcg 09/28/2019 12:00:00 AM EST tablet 30 TAKE ONE TABLET BY MOUTH EVERY DAY TAKE ONE TABLET BY MOUTH EVERY DAY SOLD: 04/15/2020 [facility] 50 mcg 09/28/2019 12:00:00 AM EST tablet 30 TAKE ONE TABLET BY MOUTH EVERY DAY TAKE ONE TABLET BY MOUTH EVERY DAY SOLD: 03/11/2020 [facility] 50 mcg (2,000 unit) 09/28/2019 12:00:00 AM EST capsule 90 TAKE ONE CAPSULE BY MOUTH EVERY DAY TAKE ONE CAPSULE BY MOUTH EVERY DAY SOLD: 03/27/2020 [facility] 50 mcg (2,000 unit) 09/28/2019 12:00:00 AM EST capsule 90 TAKE ONE CAPSULE BY MOUTH EVERY DAY TAKE ONE CAPSULE BY MOUTH EVERY DAY SOLD: 07/25/2020 [facility] 50 mcg (2,000 unit) 09/28/2019 12:00:00 AM EST capsule 90 TAKE ONE CAPSULE BY MOUTH EVERY DAY TAKE ONE CAPSULE BY MOUTH EVERY DAY SOLD: 12/29/2019 [facility] 50 mcg 09/28/2019 12:00:00 AM EST tablet 30 TAKE ONE TABLET BY MOUTH EVERY DAY TAKE ONE TABLET BY MOUTH EVERY DAY SOLD: 02/05/2020 [facility] 50 mcg (2,000 unit) 09/28/2019 12:00:00 AM EST capsule 90 TAKE ONE CAPSULE BY MOUTH EVERY DAY TAKE ONE CAPSULE BY MOUTH EVERY DAY SOLD: 09/29/2019 [facility] 50 mcg 09/28/2019 12:00:00 AM EST tablet 30 TAKE ONE TABLET BY MOUTH EVERY DAY TAKE ONE TABLET BY MOUTH EVERY DAY SOLD: 12/29/2019 [facility] 0.5 mg 09/26/2019 12:00:00 AM EST tablet 15 TAKE ONE TABLET BY MOUTH EVERY DAY NEEDED SEVERE ANXIETY, MAXIMUM DAILY DOSE = 1 TAKE ONE TABLET BY MOUTH EVERY DAY NEEDED SEVERE ANXIETY, MAXIMUM DAILY DOSE = 1 SOLD: 09/28/2019 [facility] Escitalopram 20 MG Oral Tablet ESCITALOPRAM OXALATE 09/26/2019 1 2:00:00 AM EST tablet 30 TAKE ONE TABLET BY MOUTH EVERY D AY TAKE ONE TABLET BY MOUTH EVERY DAY SOLD: 09/28/2019 [facility] Escitalopram 20 MG Oral Tablet ESCITALOPRAM OXALATE 09/26/2019 1 2:00:00 AM EST tablet 30 TAKE ONE TABLET BY MOUTH EVERY D AY TAKE ONE TABLET BY MOUTH EVERY DAY SOLD: 10/19/2019 [facility] 0.5 mg 09/07/2019 12:00:00 AM EST tablet 15 TAKE 1 TABLET BY MOUTH ONCE DAILY NEEDED FOR SEVERE ANXIETY TAKE 1 TABLET BY MOUTH ONCE DAILY NEE DED FOR SEVERE ANXIETY SOLD: 09/10/2019 [facility] 0.5 mg 08/14/2019 12:00:00 AM EST tablet 15 TAKE ONE TABLET BY MOUTH EVERY DAY NEEDED FOR SEVERE ANXIETY MAXIMUM DAILY DOSE = 1 TABLET TAKE ONE TABLET BY MOUTH EVERY DAY NEEDED FOR SEVERE ANXIETY MAXIMUM DAILY DOSE = 1 TABLET SOLD: 08/15/2019 [facility] 50 mcg 06/30/2019 12:00:00 AM EST tablet 30 TAKE 1/2 TABLET BY MOUTH DAILY FOR 3 DAYS, THEN INCREASE TO 1 TABLET DAILY TAKE 1/2 TABLET BY MOUTH DAILY FOR 3 DAYS, THEN INCREASE TO 1 TABLET DAILY SOLD: 08/15/2019 [facility] Escitalopram 10 MG Oral Tablet ESCITALOPRAM OXALATE 06/30/2019 1 2:00:00 AM EST tablet 30 TAKE ONE TABLET BY MOUTH EVERY D AY TAKE ONE TABLET BY MOUTH EVERY DAY SOLD: 07/24/2019 [facility] 50 mcg 06/30/2019 12:00:00 AM EST tablet 30 TAKE 1/2 TABLET BY MOUTH DAILY FOR 3 DAYS, THEN INCREASE TO 1 TABLET DAILY TAKE 1/2 TABLET BY MOUTH DAILY FOR 3 DAYS, THEN INCREASE TO 1 TABLET DAILY SOLD: 06/30/2019 [facility] Escitalopram 10 MG Oral Tablet ESCITALOPRAM OXALATE 06/30/2019 1 2:00:00 AM EST tablet 30 TAKE ONE TABLET BY MOUTH EVERY D AY TAKE ONE TABLET BY MOUTH EVERY DAY SOLD: 09/06/2019 [facility] 50 mcg 06/30/2019 12:00:00 AM EST tablet 30 TAKE 1/2 TABLET BY MOUTH DAILY FOR 3 DAYS, THEN INCREASE TO 1 TABLET DAILY TAKE 1/2 TABLET BY MOUTH DAILY FOR 3 DAYS, THEN INCREASE TO 1 TABLET DAILY SOLD: 07/24/2019 [facility] Escitalopram 10 MG Oral Tablet ESCITALOPRAM OXALATE 06/30/2019 1 2:00:00 AM EST tablet 30 TAKE ONE TABLET BY MOUTH EVERY D AY TAKE ONE TABLET BY MOUTH EVERY DAY SOLD: 08/15/2019 [facility] Escitalopram 10 MG Oral Tablet ESCITALOPRAM OXALATE 06/30/2019 1 2:00:00 AM EST tablet 30 TAKE ONE TABLET BY MOUTH EVERY D AY TAKE ONE TABLET BY MOUTH EVERY DAY SOLD: 06/30/2019 [facility] 0.5 mg 06/30/2019 12:00:00 AM EST tablet 15 TAKE ONE TABLET BY MOUTH EVERY DAY NEEDED FOR SEVERE ANXIETY MAXIMUM DAILY DOSE = 1 TAKE ONE TABLET BY MOUTH EVERY DAY NEEDED FOR SEVERE ANXIETY MAXIMUM DAILY DOSE = 1 SOLD: 06/30/2019 [facility] Escitalopram 10 MG Oral Tablet ESCITALOPRAM OXALATE 06/30/2019 1 2:00:00 AM EST tablet 4 TAKE ONE TABLET BY MOUTH EVERY D AY TAKE ONE TABLET BY MOUTH EVERY DAY SOLD: 09/04/2019 [facility] 10 mg 06/26/2019 12:00:00 AM EST capsule 5 TAKE ONE CAPSULE BY MOUTH EVERY DAY NEEDED FOR ANXIETY MAXIMUM DAILY DOSE = 1 TAKE ONE CAPSULE BY MOUTH EVERY DAY NEEDED FOR ANXIETY MAXIMUM DAILY DOSE = 1 SOLD: 06/26/2019 [facility] 37.5 mg 06/26/2019 12:00:00 AM EST capsule,extended releas e 24hr 21 TAKE THREE CAPSULES BY MOUTH EVERY DAY TAKE THREE CAPSULES BY MOUTH EVERY DAY SOLD: 06/26/2019 [facility] Insurance Providers Payer name Policy type / Coverage type Policy ID Covered republican ID Covered republican's relationship to jaimes Policy Jaimes Plan Information [employer] [place] PPO [phone] [id number] [employer] B [id number] C TNY [id number] [employer] P [id number] P TNY [id number] BCBS FEDERAL EMPLOYEE PROGRAM [id number] SP [id number] MEDICAID [id number] Medicaid [place] Medig[place] Part B [id number] Self [id number] [employer]BS Health Maintenance Organization (HMO) [id number] Family Dependent [id number] Medicaid [place] Med[place] [id number] Self [id number] [employer] Health Maintenance Organization (HMO) [id number] Family Dependent [id number] MEDICAID [id number] BCBS/Blue Card Commercial [id number] Family Dependent [id number] SELF PAY O UNAVAILABLE S UNAVAILA BLE [employer] Commercial [id number] Family Dependent [id number] [employer] Commercial [id number] Family Dependent [id number] [employer] [id number] Family Dependent [id number] [employer] [id number] Family Dependent [id number] [employer] [id number] Family Dependent [id number] [employer] Commercial [id number] Family Dependent Geor ge Darinel [id number] [employer] Commercial [id number] Family Dependent Geor ge Darinel [id number] [employer] [id number] Family Dependent Nora Linn [id number] [employer] Commercial [id number] Family Dependent Geor ge Darinel [id number] [employer] Commercial [id number] Family Dependent Geor ge Darinel [id number] [employer] [id number] Family Dependent [id number] [employer] Commercial [id number] Family Dependent [id number] [employer] [id number] Family Dependent [id number] [employer] [id number] Family Dependent [id number] [employer] [id number] Family Dependent [id number] [employer] [id number] Family Dependent [id number] [employer] [id number] Family Dependent [id number] [employer] [id number] Family Dependent [id number] [employer] Commercial [id number] Family Dependent [id number] [employer] Commercial [id number] Family Dependent [id number] [employer] [id number] Family Dependent [id number] [employer] Commercial [id number] Family Dependent [id number] [employer] Commercial [id number] Family Dependent Geor ge Darinel [id number] [employer] Commercial [id number] Family Dependent Geor ge Darinel [id number] [employer] Commercial [id number] Family Dependent Geor ge Darinel [id number] [employer] Commercial Family Dependent [employer] Commercial Family Dependent [employer] Commercial Family Dependent [employer] Commercial Family Dependent [id number] Problems, Conditions, and Diagnoses Code Display Name Description Problem Type Effective Dates Data Source(s) V85.38 Body Mass Index 38.0-38.9, adult Body Mass Index 38.0- 38.9, adult 05/06/2020 12:03:05 PM EDT [facility] 787.02 Nausea Nausea 02/05/2020 04:13:02 PM ED [facility] Z32.00 Encounter for test, result unpancho lozada test weakly positive 02/02/2020 03:10:41 PM T [facility] E55.9 Vitamin D deficiency, unspecified Vitamin D deficiency , unspecified 09/28/2019 12:51:26 PM [facility] H43.392 Other vitreous opacities, left eye Vitreous floaters o f left eye 09/28/2019 12:49:00 PM [facility] V70.0 Health Screening Health Screening 09/28/2019 12 :49:00 PM [facility] V70.0 Encounter for general adult medical exam ination with abnormal findings Encounter for general adult medical examination with abnormal findings 09/28/2019 12:49:00 PM [facility] 278.00 Obesity Obesity 09/28/2019 12:49:00 PM [facility] 300.4 Mixed anxiety and depressive disorder Mi xed anxiety and depressive disorder 09/28/2019 12:49:00 PM [facility] Z13.228 Encounter for screening for other metabo lic disorders Encounter for screening for other metabolic disorders 07/03/2019 04:45:51 AM [facility] E03.8 Other specified hypothyroidism Other specified hypothy roidism 07/03/2019 04:44:12 AM [facility] Results ID Date Data Source [id number] 05/06/2020 11:07:45 AM [facility] Measurements & CalculationsHeight: 66 inches (5 ft. 6 in.) 167.64 cm Weight: 240.6 pounds 109.36 kg Body Mass Index (BMI): 38.97BMI Interpretation: ObeseBody Surface Area (BSA): 2.17Weight Management Education Done (Nutrition/Physical Activity)Vital SignsTemperature: 97.0F 36.11C tympanic Pulse Rate: 96 beats/ross teRespiratory Rate: 18 respirations/minuteBlood Pressure: 96/66 left arm sitting automaticO2 Saturation: 99% Vital Signs performed by: Grace Fierro LPN, May 06, 2020 11:09 AMInitial Intake Information From: patientRoom #: 1Infectious Disease / Travel ScreeningRecent travel for you or any close contacts? NoHave you had any close contact with anyone diagnosed with or under investigation for COVID-19 (coronavirus)? NoFever? NoRespiratory symptoms: cough, cold, congestion, shortness of breath, difficulty breathing? NoLoss of smell? NoLoss of taste? NoSmoking, Tobacco, Vaping or Smoke Exposure StatusSmoke Status: former smokerTobacco Use: NoDo you vape? YesCessation advice given: YesWhat is in your device? nicotineFrequency: current every day vaperPassive Smoke Exposure: YesMenstrual HistoryLast Menstrual Period (LMP): 04/10/2020Any possibility of ? NoHealthcare HistorySince your last office visit...Have you been admitted to the hospital? No - [facility] MHHospital admission date reported today: 06/21/2019Have you been to an emergency room (ER) or urgent care clinic? NoHave you seen another healthcare provider? Yes - [facility] outpatient Healthcare provider date reported today: 06/28/2019Have you seen a dentist? NoIntake performed by: Grace Fierro LPN, May 06, 2020 11:10 AMRate Your HealthIn general, would you say your health is? GoodPain AssessmentAre you currently having any pain which... You would like your provider to address? No Affects your activity level? NoDepression Screening - PHQ-2Over the last two weeks, have you... Had little interest or pleasure in doing things? Not at all Been feeling down, depressed, or hopeless? Not at all PHQ-2 Score: 0Anxiety Screening - ADE-2Over the last two weeks, have you been... Feeling nervous, anxious, or on edge? Nearly every day Unable to stop or control worrying? Nearly every day ADE-2 Score: 6Food InsecurityWithin the past year...Did you worry whether your food would run out before you got money to buy more? Never trueWas there a time when the food you bought didn't last and you didn't have money to get more? Never trueGeneralized Anxiety Disorder 7-Item Screening (ADE-7)Answer Guide:0 = Not at all1 = Several days2 = Over half the days3 = Nearly every dayOver the last 2 weeks, how often have you been bothered by the following problems?Feeling nervous, anxious, or on edge: 3Not being able to stop or control worryinWorrying too much about different things: 3Trouble relaxinBeing so restless that it's hard to sit still: 3Becoming easily annoyed or irritable: 3Feeling afraid as if something awful might happen: 3Answer Guide:0 = Not difficult at all1 = Somewhat difficult2 = Very difficult3 = Extremely difficultHow difficult have these made it for you to do your work, take care of things at home, or get along with other people? 3GAD-7 Screening Results ADE-2 Score: 6GAD-7 Score: 21Functional Impairment: Extremely difficultRecommendation: Severe anxietyScre ening, Brief Intervention, & Referral to Treatment (SBIRT)Pre-Screening Questions How many times have you have 4 or more drinks in a day? 0How many times have you used an illegal drug or used a prescription medication for a non- medical reason? 0Performed by: Grace Fierro LPN, May 06, 2020 11:11 AMPatient History Medical History:lumbar strainhemorrhoiddepression anxietySurgical History:Family History:Hypertension (Father)Anxiety (Mother, Father)Depression (Mother, Father)Anxiety (Maternal Grandmother, Paternal Grandmother)Depression (Maternal Grandmother, Paternal Grandmother)Heart disease (Paternal Grandfather)Social/Personal History: Chief Complaintfollow-up visitHistory of Present Illness (HPI)Pt is a 24 y/o female, presents for mood med check. Feels Lexapro is helpful for her depression. Uses ativan once every few days as needed for a panic attack or severe anxiety. Admits to some anxiety. HPI performed by: Attila MCELROY, May 06, 2020 11:36 AMTransitions of Care InboundProblem ReviewProblem List was reviewed and/or updated during this visit.Medication Reconciliation & ReviewMedication List was reviewed and/or updated during this visit, including review of any ove t-vmn-zdoebif medications, herbal therapies, and/or supplements.Allergy ReviewAllergy List was reviewed and/or updated during this visit.Adult Preventive CareLabs/Meds/Other Counseling-Nutrition and Physical Activity:BMI Interpretation: Obese (05/06/2020) Counseling: Done (05/06/2020) Physical Activity: Done (05/06/2020)Review of Systems General: Denies loss of appetite, chills, dizziness, fatigue, fever. Cardiovascular: Denies chest pain, palpitations, feeling faint. Respiratory: Denies cough, difficulty breathing, shortness of breath. Gastrointestinal: Denies nausea, vomiting, diarrhea, pain or discomfort. Neurologic: Denies weakness, feeling faint. Psychiatric: Complains of see HPI, anxiety, feeling stressed. Denies depression. Physical ExamGeneral Appearance: well nourished, well hydrated, no acute distress, obese femaleEyes, External: conjunctivae and lids normal, EOMIRespiratory, Auscultation: clear to auscultation bilaterally; no rales, rhonchi, or wheezesCardiovascular, Auscultation: S1, S2 audible; no murmur, rub, or gallop; RRRPeripheral Circulation: no clubbing, cyanosis, edema, or varicositiesAbdomen: soft, non-tender, no masses, bowel sounds normalGait & Station: norm alOrientation: oriented to time, place, and personMood & Affect: mildly anxious appearing, good eye contact, speech clearJudgment & Insight: intactCare Management Plan Transitions of CareInboundRate Your HealthIn general, would you say your health is? GoodAssessment & Plan Problems:Changed:From: Dx of BMI 36.0- 36.9 (ICD-V85.36) (ZWG58-M56.36) To: Body Mass Index 38.0-38.9, adult (ICD-V85.3 8) (RNK72-B68.38)Assessed:Mixed anxiety and depressive disorder (ICD-300.4) (CGW36-R29.8) Assessment: Instructions: Overall, improvement in moods. Remains with some anxiety. Consider increasing Lexapro to 30mg daily or adding Buspar daily for more anxiety effect. Ativan for severe symptoms only. The medication you were prescribed today is a controlled substance. We have reviewed alternative treatment options and agree this is the most appropriate treatment at this time. We reviewed risks of taking this medication, including but not limited to: addiction, sedation, overdose. Taking more than prescribed or taking with another controlled substance can result in overdose or , no drinking alcohol, no driving/operating heavy machinery while taking this medication. Keep out of the reach of childrenObesity (ICD-278.00) (SBS32-K83.09) Assessment: Instructions: Recommend healthy lifestyle modification. Encourage portion control, healthy food choices (low and healthy carb), and increasing routine physical activity. Recommendation is for 150 minutes throughout the week of cardiovascular exercise.Body Mass Index 38.0-38.9, adult (ICD-V85.38) (YVD91-X95.38) Assessment: Instructions: As above.Other specified hypothyroidism (CPG78-D32.8) Assessment: Instructions: Recheck labs in 09/2020, prior to annual PE.Vitamin D deficiency, unspecified (ICD10- E55.9) Assessment: Instructions: As above.Removed:Nausea (ICD-787.02) (LBQ01-J89.0), test weakly positive (ICD-V22.1) (YXH78-P19.00)Patient Instructions/Care Plan: Mixed anxiety and depressive disorder: Overall, impr ovement in moods. Remains with some anxiety. Consider increasing Lexapro to 30mg daily or adding Buspar daily for more anxiety effect. Ativan for severe symptoms only. The medication you were prescribed today is a controlled substance. We have reviewed alternative treatment options and agree this is the most appropriate treatment at this time. We reviewed risks of taking this medication, including but not limited to: addiction, sedation, overdose. Taking more than prescribed or taking with another controlled substance can result in overdose or , no drinking alcohol, no driving/operating heavy machinery while taking this medication. Keep out of the reach of childrenObesity: Recommend healthy lifestyle modification. Encourage portion control, healthy food choices (low and healthy carb), and increasing routine physical activity. Recommendation is for 150 minutes throughout the week of cardiovascular exercise.Body Mass Index 38.0-38.9- adult: As above.Other specified hypothyroidism: Recheck labs in 09/2020, prior to annual PE.Vitamin D deficiency- unspecified: As above. Plan developed in collaboration with patient and/or familyMedications:VITAMIN D3 50 MCG (1999 UT) ORAL CAPSULELEXAPRO 20 MG ORAL TABLETLEVOTHYROXINE SODIUM 50 MCG ORAL TABLETATIVAN 0.5 MG ORAL TABLETMedication Changes:Refilled:ATIVAN 0.5 MG ORAL TABLET-1 po daily prn severe anxiety; MDD 0.5mg Qty: 15[Tablet] Refills: 0 Method: ElectronicAllergies:* HYDROXYZINE (Moderate)Orders:Adult - Ofc Vst, EST, Level III [CPT-09378] Follow-Up Return to clinic: 09/2020 for preventive care visitAdditional Follow-Up: annual PE after labsClinical Visit Summary DeclinedMedications:ATIVAN 0.5 MG ORAL TABLET (LORAZEPAM) 1 po daily prn severe anxiety; MDD 0.5mg #15[Tablet] x 0 Entered and Authorized by: Attila Bautista Method used: Electronically to [facility] (retail) [address] [place] [address] RxID: [id number] signed by Attila MCELROY on 05/06/2020 at 12:03 PM Name Value Range Interpretation Code Description Data Madalyn rce(s) Supporting Document(s) ID Date Data Source [id number] 02/02/2020 02:46:56 PM EDT [facility] Measurements & CalculationsHeight: 66 inches (5 ft. 6 in.) 167.64 cm Weight: 234 pounds 106.36 kg Body Mass Index (BMI): 37.91BMI Interpretation: ObeseBody Surface Area (BSA): 2.14Vital SignsTemperature: 97.3F 36.28C tympanic Pulse Rate: 99 beats/minuteRespiratory Rate: 18 respirations/minuteBlood Pressure: 117/79 left arm sitting automaticO2 Saturation: 97% Vital Signs performed by: Grace Fierro LPN, February 02, 2020 2:55 PMInitial Intake Information From: patientRoom #: 1Infectious Disease / Travel ScreeningRecent travel for you or any close contacts? NoHave you had any close contact with anyone diagnosed with or under investigation for COVID-19 (coronavirus)? NoFever? NoRespiratory symptoms: cough, cold, congestion, shortness of breath, difficulty breathing? NoLoss of smell? NoLoss of taste? NoSmoking, Tobacco, Vaping or Smoke Exposure StatusSmoke Status: current every day smokerTobacco Use: YesAdv to Quit: YesDo you vape? NoPassive Smoke Exposure: YesMenstrual HistoryLast Menstrual Period (LMP): 01/16/2020Any possibility of ? YesComments: has had some faint positives at homeHealthcare HistorySince your last office visit...Have you been admitted to the hospital? NoHave you been to an emergency room (ER) or urgent care clinic? NoHave you seen another healthcare provider? Yes - [facility] outpatient MHHave you seen a dentist? NoIntake performed by: Grace Fierro LPN, February 02, 2020 2:52 PMRate Your HealthIn general, would you say your health is? Very GoodPain AssessmentAre you currently having any pain which... You would like your provider to address? No Affects your activity level? NoDepression Screening - PHQ-2Over the last two weeks, have you... Had little interest or pleasure in doing things? Not at all Been feeling down, depressed, or hopeless? Not at all PHQ-2 Score: 0Anxiety Screening - ADE-2Over the last two weeks, have you been... Feeling nervous, anxious, or on edge? Not at all Unable to stop or control worrying? Not at all ADE-2 Score: 0Food InsecurityWithin the past year...Did you worry whether your food would run out before you got money to buy more? NoWas there a time when the food you bought didn't last and you didn't have money to get more? NoScreening, Brief Intervention, & Referral to Treatment (SBIRT)Pre-Screening Questions How many times have you have 4 or more drinks in a day? 0How many times have you used an illegal drug or used a prescription medication for a non- medical reason? 0Performed by: Grace Fierro LPN, February 02, 2020 2:53 PMPatient History Medical History:lumbar strainhemorrhoiddepression anxietySurgical History:Family History:Hypertension (Father)Anxiety (Mother, Father)Depression (Mother, Father)Anxiety (Maternal Grandmother, Paternal Grandmother)Depression (Maternal Grandmother, Paternal Grandmother)Heart disease (Paternal Grandfather)Social/Personal History: Advised to Quit/Tobacco Education: YesChief Complaintfollow-up visit: medHistory of Present Illness (HPI)24 yo female pt presents for a med f/u. Tolerating Lexapro well and feels depression symptoms are significantly well controlled. Continues to have significant anxiety: leaving the house, closed spaces, grocery shopping, going to the doctor. Feels improvement with Lexapro. Infrequently takes the ativan. Previously had counseling at [facility], but wasn't happy with who she saw. Also had referral here in 09/2019 but patient never realized she was trying to be reached to scheduled.Pt states she hasn't had her period since last month, has taken a few test and they were faintly positive a few days ago. Pt wondering about blood work.HPI performed by: Attila MCELROY, February 02, 2020 3:01 PMTransitions of Care InboundProblem ReviewProblem List was reviewed and/or updated during this visit.Medication Reconciliation & ReviewMedication List was reviewed and/or updated during this visit, including review of any wgxd-fiw-ehgvelw medications, herbal therapies, and/or supplements.Allergy ReviewAllergy List was reviewed and/or updated during this visit.Adult Preventive CareScreening Tobacco Screening: Smoking Status: current every day smoker (02/02/2020) Tobacco Use: Currently (02/02/2020) Advised to Quit: Yes (02/02/2020)Review of Systems General: Denies loss of appetite, chills, dizziness, fever, headache, feeling ill. Cardiovascular: Denies chest pain, palpitations, feeling faint. Respiratory: Denies cough, difficulty breathing, shortness of breath. Gastrointestinal: Complains of nausea. Denies vomiting, diarrhea, pain or discomfort. Genitourinary: Complains of see HPI, absence of menstrual period. Denies pelvic pain. Neurologic: Denies weakness, feeling faint. Psychiatric: Complains of see HPI. Denies depression. Physical ExamGeneral Appearance: well nourished, well hydrated, no acute distressEyes, External: conjunctivae and lids normal, EOMIRespiratory, Auscultation: clear to auscultation bilaterally; no rales, rhonchi, or wheezesCardiovascular, Auscultation: S1, S2 audible; no murmur, rub, or gallop; RRRPeripheral Circulation: no clubbing, cyanosis, edema, or varicositiesAbdomen: soft, non- tender, no masses, bowel sounds normalGait & Station: normalOrientation: oriented to time, place, and personMood & Affect: anxious appearingJudgment & Insight: intactCare Management Plan Transitions of CareInboundRate Your HealthIn general, would you say your health is? Very GoodAssessment & Plan Problems:Added: test weakly positive (ICD-V22.1) (LBJ40-Y17.00) Assessment: Instructions: Blood work ordered today to confirm , will call with results. education provided.Assessed:Mixed anxiety and depressive disorder (ICD-300.4) (NDH48-U63.8) Assessment: Instructions: Continue current medications as previously prescribed.Nausea (ICD-787.02) (MCM24-U96.0) Assessment: Instructions: As above.Patient Instructions/Care Plan: Mixed anxiety and depressive disorder: Continue current medications as previously prescribed. test weakly positive: Blood work ordered today to confirm , will call with results. education pr ovided.Nausea: As above. Plan developed in collaboration with patient and/or familyMedications:VITAMIN D3 50 MCG (1999 UT) ORAL CAPSULELEXAPRO 20 MG ORAL TABLETLEVOTHYROXINE SODIUM 50 MCG ORAL TABLETATIVAN 0.5 MG ORAL TABLETAllergies:* HYDROXYZINE (Moderate)Orders:HCG-Quantitative [CPT-82896] Adult - Ofc Vst, EST, Level III [CPT-92810] Follow-Up Return to clinic: in 90 days for follow upAdditional Follow-Up: moodClinical Visit Summary Declined Name Value Range Interpretation Code Description Data Madalyn rce(s) Supporting Document(s) ID Date Data Source [id number] 09/26/2019 11:55:00 AM [facility] Name Value Range Interpretation Code Description Data Madalyn rce(s) Supporting Document(s) HCT 44.7 % 36.0-47.0 N [facility] HGB 14.3 g/dL 12.0-15.5 N [facility] MCH 32.0 G/DL pg 32.0-36.5 N [facility] MCHC 26.9 PG % 27.0-33.0 L [facility] PLATELETS 188 10 10*3/mm3 150-450 N [facility] RBC 5.32 10 10*6/mm3 4.00-5.40 N [facility] RDW 14.6 % 11.5-14.5 H [facility] WBC TOTAL 4.4 4.0-10.0 N [facility] ID Date Data Source [id number] 09/26/2019 11:55:00 AM [facility] Name Value Range Interpretation Code Description Data [facility] rce(s) Supporting Document(s) BG FASTING 86 mg/dL 70-100 N [facility] T4, FREE 1.18 ng/dL 0.76-1.46 N [facility] TSH 2.200 microintl units/mL 0.358-3.740 N [facility] VIT D25 TOT 20.0 ng/mL 30.0-100.0 L [facility] ID Date Data Source [id number] 09/26/2019 11:17:47 AM [facility] Measurements & CalculationsHeight: 66 inches (5 ft. 6 in.) 167.64 cm Weight: 228 pounds 103.64 kg Body Mass Index (BMI): 36.93BMI Interpretation: ObeseBody Surface Area (BSA): 2.12Weight Management Education Done (Nutrition/Physical Activity)Vital SignsTemperature: 98.1F oral Pulse Rate: 104 beats/minuteRespiratory Rate: 18 respirations/minuteBlood Pressure: 93/57 left arm sitting automaticO2 Saturation: 95% room airVital Signs performed by: Rosalinda Hopper LPN, September 26, 2019 11:29 AMVital Signs performed by: Attila MCELROY, September 26, 2019 11:33 AMInitial Intake Information from: patientRoom #: 8Smoking, Tobacco, Vaping or Smoke Exposure StatusSmoke Status: current every day smokerTobacco Use: YesAdv to Quit: YesDo you vape? NoPassive Smoke Exposure: YesMenstrual HistoryLast Menstrual Period (LMP): 09/10/2019Any possibility of ? NoHealthcare HistorySince your last office visit...Have you been admitted to the hospital? NoHave you been to an emergency room (ER) or urgent care clinic? NoHave you seen another healthcare provider? Yes - [facility] outpatient MHHave you seen a dentist? NoRate Your HealthIn general, would you say your health is? Very GoodPain AssessmentAre you currently having any pain which... You would like your provider to address? No Affects your activity level? NoDepression Screening - PHQ-2Over the last two weeks, have you... Had little interest or pleasure in doing things? Not at all Been feeling down, depressed, or hopeless? Several days PHQ-2 Score: 1Anxiety Screening - ADE-2Over the last two weeks, have you been... Feeling nervous, anxious, or on edge? Nearly every day Unable to stop or control worrying? Several days ADE-2 Score: 4Infectious Disease / Travel ScreeningRecent travel for you, your family, and/or any sexual partners? NoGeneralized Anxiety Disorder 7-Item Screening (ADE-7)Answer Guide:0 = Not at all1 = Several days2 = Over half the days3 = Nearly every dayOver the last 2 weeks, how often have you been bothered by the following problems?Feeling nervous, anxious, or on edge: 3Not being able to stop or control worryinWorrying too much about different things: 3Trouble relaxinBeing so restless that it's hard to sit still: 0Becoming easily annoyed or irritable: 0Feeling afraid as if something awful might happen: 3Answer Guide:0 = Not difficult at all1 = Somewhat difficult2 = Very difficult3 = Extremely difficultHow difficult have these made it for you to do your work, take care of things at home, or get along with other people? 2GAD-7 Screening Results ADE-2 Score: 4GAD-7 Score: 10Functional Impairment: Very difficultRecommendation: Moderate anxietyPHQ-9 1. Over the last 2 weeks, patient reports the following frequency of symptoms: a. Little interest or pleasure in doing things - Not at all b. Feeling down, depressed, or hopeless -Several days c. Trouble falling asleep, staying asleep, or sleeping too much -Not at all d. Feeling tired or having little energy -Nearly every day e. Poor appetite or overeating -Nearly every day f. Feeling bad about yourself, feeling that you are a failure, or feeling that you have let yourself or your family down -Not at all g. Trouble concentrating on things such as reading the newspaper or watching television -Nearly every day h. Moving or speaking so slowly that other people could have noticed. Or being so fidgety or restless that you have been moving around a lot more than usual -Not at all i. Thinking that you would be better off or that you want to hurt yourself in some way -Not at all2. If you checked off any problems, how difficult have these problems made it for you to do your work, take care of things at home, or get along with other people? -Very DifficultToday's PHQ-9 Results Score: 10 Severity: Moderate Diagnosis Recommendation: No recommendation Functional Impairment: Very DifficultDepression Screening Follow-Up ActionToday's Follow-Up Action Depression follow-up done. Follow-Up Action: Referred to Behavioral Health - outpatient servicesPRAPARE Sociodemographic Characteristics Race: White Ethnicity: Not or Preferred Language: EnglishFamily and Home Address: [address] [place] [address] What is your housing situation today? I have housing Are you worried about losing your housing? NoMoney and Resources What is the highest level of school that you have finished? 9th-12th grade Employed? No Are you seeking work? Yes Insurance: Shoppable BCBSIn the past year, have you or any family members you live with been unable to get any of the following when it was really needed? Denies Insecurity: food, utilities, clothing, early childhood director, phone, legal services, otherIn the past year, have you had trouble affording costs associated with health insurance (such as deductibles, co-payments, etc.)? NoSocial and Emotional Health How often do you see or talk to people that you care about and feel close to? More than 5 times a week How stressed are you? Quite a bitAdditional Optional Domains In the past 3 months, have you spent more than 2 nights in a row in a intermediate, mcfp, alf center or juvenile correctional facility? No Has lack of transportation kept you from medical appointments or from getting your medications? NoIn the past year, have you had trouble getting any of the following when it was really needed (check all that apply)?noneIn the past year, have you had trouble paying the costs associated with health care or medicine (such as co-payments, costs for services, prices of medicines)? NoHow confident are you that you can control and manage most of your health problems? Very confident Are you a refugee? No (Country of origin: [facility]) Do you feel physically and emotionally safe where you live? Yes In the past year, have you been afraid of a partner, ex-partner? NoScreening, Brief Intervention, & Referral to Treatment (SBIRT)Pre-Screening Questions How many times have you have 4 or more drinks in a day? 20How many times have you used an illegal drug or used a prescription medication for a non- medical reason? 0Performed by: Rosalinda Hopper LPN, September 26, 2019 11:25 AMPatient History Medical History:lumbar strainhemorrhoiddepression anxietySurgical History:Family History:Hypertension (Father)Anxiety (Mother, Father)Depression (Mother, Father)Anxiety (Maternal Grandmother, Paternal Grandmother)Depression (Maternal Grandmother, Paternal Grandmother)Heart disease (Paternal Grandfather)Social/Personal History: Advised to Quit/Tobacco Education: YesChief Complaintannual exam History of Present Illness (HPI)24 yo old female here for med refills and her anxiety. Pt states there time she can not even leave the house. Pt states she has not been to [facility] outpatient due to her anxiety. Currently taking 15mg Lexapro daily, feels some improvement with Lexapro. [place] numb and shaking with Effexor. Ativan she uses approximatley twice weekly for extreme panic. [facility] of [facility]. HPI performed by: Attila MCELROY, September 26, 2019 11:39 AMTransitions of Care InboundProblem ReviewProblem List was reviewed and/or updated during this visit.Medication Reconciliation & ReviewMedication List was reviewed and/or updated during this visit, including review of any [id number] medications, herbal therapies, and/or supplements.Allergy ReviewAllergy List was reviewed and/or updated during this visit.Adult Preventive CareProvider Calculated and Reviewed all Clinical Protocols for patient today. Screening Tobacco Screening: Smoking Status: current every day smoker (09/26/2019) Tobacco Use: Currently (09/26/2019) Advised to Quit: Yes (09/26/2019)Labs/Meds/Other Counseling- Nutrition and Physical Activity:BMI Interpretation: Obese (09/26/2019) Counseling: Done (09/26/2019) Physical Activity: Done (09/26/2019)Cancer Screening Pap Smear/HPV TestingReviewed: Previous Comments: 06/13/19 [facility]. (06/30/2019)Review of Systems General: Denies loss of appetite, chills, dizziness, fatigue, fever, headache, feeling ill. Eyes: Denies blurring of vision, double vision, vision loss, eye pain, sensitivity to light. admits to spot in vision that is chronic and constant in the same locationEars/Nose/Throat: Denies earache, decreased hearing, nasal congestion, sore throat, difficulty swallowing, swollen glands. Cardiovascular: Denies chest pain, palpitations, feeling faint. Respiratory: Denies cough, difficulty breathing, shortness of breath. Gastrointestinal: Denies nausea, vomiting, diarrhea, pain or discomfort. Musculoskeletal: Denies joint pain, body aches. Skin: Denies rash, suspicious lesions. Neurologic: Denies weakness, numbness/tingling. Psychiatric: Complains of depression, anxiety, feeling stressed. Denies suicidal ideation. Physical ExamGeneral Appearance: well nourished, well hydrated, no acute distressEyes, External: conjunctivae and lids normal, EOMIExternal Ears: normal, no lesions or deformitiesHearing: grossly intactOtoscopy: canals clear, tympanic membranes intact, no fluid, light reflex intact bilaterallyExternal Nose: normal, no lesions or deformitiesNasal: mucosa, septum, and turbinates normal, nares patentPharynx: tongue normal, posterior pharynx without erythema or exudate, no thrush/aphthous ulcerNeck: supple, no masses, trachea midline, full range of motion of neckThyroid: no nodules, masses, tenderness, or enlargementRespiratory, Auscultation: clear to auscultation bilaterally; no rales, rhonchi, or wheezesRespiratory, Effort: no intercostal retractions or use of accessory musclesCardiovascular, Auscultation: S1, S2 audible; no murmur, rub, or gallop; RRRPeripheral Circulation: no clubbing, cyanosis, edema, or varicositiesAbdomen: soft, non-tender, no masses, bowel sounds normalGait & Station: normalSkin, Inspection: no rashes, lesions, or ulcerationsOrientation: oriented to time, place, and personMood & Affect: anxious appearingJudgment & Insight: intactCare Management Plan Transitions of CareInboundRate Your HealthIn general, would you say your health is? Very GoodAssessment & Plan Problems:Added: Encounter for general adult medical examination with abnormal findings (ICD-V70.0) (XMT49-F58.01) Assessment: Instructions: Recommend annual medical appointments. Recommend routine dental and vision care. Recommend influenza vaccines annually.Health Screening (ICD- V70.0) (IFU45-X57.9) Assessment: Instructions: Fasting labs drawn today.Vitreous floaters of left eye (GSM28-X99.392) Assessment: Instructions: Call your eye doctor for evaluation.Obesity (ICD-278.00) (ICD10- E66.09) Assessment: Instructions: Recommend healthy lifestyle modification. Encourage portion control, healthy food choices, and increasing routine physical activity. Recommendation is for 150 minutes throughout the week of cardiovascular exercise.BMI 36.0-36.9 (ICD-V85.36) (OVS71-Z74.36) Assessment: Instructions: As above. Check fasting labs today.Changed:From: Dx of Anxiety disorder, unspecified (QRJ92-F25.9) To: Mixed anxiety and depressive disorder (ICD-300.4) (WXE28-M96.8)Assessed:Other specified hypothyroidism (QBM92-I42.8) Assessment: Instructions: Repeat thyroid levels today. Will call you if dose needs adjustment.Mixed anxiety and depressive disorder (ICD-300.4) (VYK35-O25.8) Assessment: Instructions: Increase your Lexapro to 20mg daily, Ativan refilled for as needed severe anxiety with goal of stopping once the daily medication is more effective. ER for suicidal thoughts.Patient Instructions/Care Plan: Encounter for general adult medical examination with abnormal findings: Recommend annual medical appointments. Recommend routine dental and vision care. Recommend influenza vaccines annually.Health Screening: Fasting labs drawn today.Vitreous floaters of left eye: Call your eye doctor for evaluation.Obesity: Recommend healthy lifestyle modification. Encourage portion control, healthy food choices, and increasing routine physical activity. Recommendation is for 150 minutes throughout the week of cardiovascular exercise.BMI 36.0-36.9: As above. Check fasting labs today.Other specified hypothyroidism: Repeat thyroid levels today. Will call you if dose needs adjustment.Mixed anxiety and depressive disorder: Increase your Lexapro to 20mg daily, Ativan refilled for as needed severe anxiety with goal of stopping once the daily medication is more effective. ER for suicidal thoughts. Plan developed in collaboration with patient and/or familyMedications:LEXAPRO 20 MG ORAL TABLETLEVOTHYROXINE SODIUM 50 MCG ORAL TABLETATIVAN 0.5 MG ORAL TABLETMedication Changes:Refilled:ATIVAN 0.5 MG ORAL TABLET-1 po daily prn severe anxiety Qty: 15[Tablet] Refills: 0 Method: ElectronicNew Prescription:LEXAPRO 20 MG ORAL TABLET-Take 1 tablet PO daily Qty: 30[Tablet] Refills: 1 Method: ElectronicRemoved:LEXAPRO 10 MG ORAL TABLET-1 po daily Qty: 30[Tablet] Refills: 0Allergies:* HYDROXYZINE (Moderate)Orders:COMP METABOLIC PANEL [CPT-09829] CBC W/DIFF [CPT-59771] LIPID PANEL [CPT-95683] TSH [CPT-84657] T-4 free [CPT-26538] Vitamin D 250H Unspecified [CPT-14407] Mental Health Consult [CPT-89953] 53086 - Venipuncture [CPT-49826] Preventive, Est, (18-39) [CPT-69440] Follow-Up Return to clinic: in 6 weeks for follow upAdditional Follow-Up: anxiety follow-upClinical Visit Summary CompletedMedications:ATIVAN 0.5 MG ORAL TABLET (LORAZEPAM) 1 po daily prn severe anxiety #15[Tablet] x 0 Route:ORAL Entered and Authorized by: Attila MCELROY Method used: Electronically to [facility] (retail) [address] [place] [address] Note to Pharmacy: Route: ORAL; RxID: [id number] 20 MG ORAL TABLET (ESCITALOPRAM OXALATE) Take 1 tablet PO daily #30[Tablet] x 1 Route:ORAL Entered and Authorized by: Attila MCELROY Method used: Electronically to [facility] (retail) [address] [place] [address] Note to Pharmacy: Route: ORAL; Indications: MIXED ANXIETY AND DEPRESSIVE DISORDER RxID: [id number] LEXAPRO 10 MG ORAL TABLET (ESCITALOPRAM OXALATE) 1 po daily #30[Tablet] x 0 Route:ORAL Entered by: Attila MCELROY Authorized by: Aditya Marie MD Method used: Electronically to [facility] (retail) [address] [place] [address] RxID: [id number]]Labs In-House Blood TestsDate/Time Collected: September 26, 2019 11:58 AMTest Result Reference Range Normal ValueComments: blood draw done in office, taken from left ac, tolerated well.Aneta Rangel, September 26, 2019 11:58 AM Name Value Range Interpretation Code Description Data Madalyn rce(s) Supporting Document(s) ID Date Data Source [id number] 06/30/2019 09:40:12 AM [facility] Measurements & CalculationsHeight: 66 inches (5 ft. 6 in.) 167.64 cm Weight: 216.2 pounds 98.27 kg Body Mass Index (BMI): 35.02BMI Interpretation: ObeseBody Surface Area (BSA): 2.07Weight Management Education Done (Nutrition/Physical Activity)Vital SignsTemperature: 97.9F oral Pulse Rate: 78 beats/minuteRespirato ry Rate: 17 respirations/minuteBlood Pressure: 112/77 right arm sitting automaticO2 Saturation: 98% room airVital Signs performed by: Rosalinda Hopper LPN, June 30, 2019 10:02 AMInitial Intake Information from: patientRoom #: 14Infectious Disease- Travel Have you or your sexual partner travelled outside of the country recently? NoSmoking, Tobacco or Smoke Exposure StatusSmoke Status: current every day smokerTobacco Use: YesAdv to Quit: YesPassive Smoke Exposure: YesMenstrual HistoryLast Menstrual Period (LMP): 06/27/2019Any possibility of ? NoHealthcare HistorySince your last office visit...Have you been admitted to the hospital? Yes - [facility] MHHospital admission date reported today: 06/21/2019Have you been to an emergency room (ER) or urgent care clinic? NoHave you seen another healthcare provider? Yes - [facility] outpatient Healthcare provider date reported today: 06/28/2019Have you seen a dentist? NoIntake performed by: Rosalinda Hopper LPN, June 30, 2019 9:45 AMRate Your HealthIn general, would you say your health is? Very GoodPain AssessmentAre you currently having any pain which... You would like your provider to address? No Affects your activity level? NoDepression Screening - PHQ-2Over the last two weeks, have you... Had little interest or pleasure in doing things? Nearly every day Been feeling down, depressed, or hopeless? Ne raf every day PHQ-2 Score: 6Anxiety Screening - ADE-2Over the last two weeks, have you been... Feeling nervous, anxious, or on edge? Nearly every day Unable to stop or control worrying? Nearly every day ADE-2 Score: 6Infectious Disease- Travel Cont. Any possibility of ? NoGeneralized Anxiety Disorder 7-Item Screening (ADE-7)Answer Guide:0 = Not at all1 = Several days2 = Over half the days3 = Nearly every dayOver the last 2 weeks, how often have you been bothered by the following problems?Feeling nervous, anxious, or on edge: 3Not being able to stop or control worryinWorrying too much about different things: 3Trouble relaxinBeing so restless that it's hard to sit still: 3Becoming easily annoyed or irritable: 2Feeling afraid as if something awful might happen: 3Answer Guide:0 = Not difficult at all1 = Somewhat difficult2 = Very difficult3 = Extremely difficultHow difficult have these made it for you to do your work, take care of things at home, or get along with other people? 3GAD- 7 Screening Results ADE-2 Score: 6GAD-7 Score: 20Functional Impairment: Extremely difficultRecommendation: Severe anxietyPHQ-9 1. Over the last 2 weeks, patient reports the following frequency of symptoms: a. Little interest or pleasure in doing things -Nearly every day b. Feeling down, depressed, or hopeless -Nearly every day c. Trouble falling asleep, staying asleep, or sleeping too much -Nearly every day d. Feeling tired or having little energy -Nearly every day e. Poor appetite or overeating -Nearly every day f. Feeling bad about yourself, feeling that you are a failure, or feeling that you have let yourself or your family down -Nearly every day g. Trouble concentrating on things such as reading the newspaper or watching television -Nearly every day h. Moving or speaking so slowly that other people could have noticed. Or being so fidgety or restless that you have been moving around a lot more than usual -Not at all i. Thinking that you would be better off or that you want to hurt yourself in some way - Nearly every day2. If you checked off any problems, how difficult have these problems made it for you to do your work, take care of things at home, or get along with other people? -Extremely DifficultToday's PHQ-9 Results Score: 24 Severity: Severe Diagnosis Recommendation: Major Depression Functional Impairment: Extremely DifficultScreening, Brief Intervention, & Referral to Treatment (SBIRT)Pre-Screening Questions How many times have you have 4 or more drinks in a day? 3How many times have you used an illegal drug or used a prescription medication for a non-medical reason? 0Performed by: Rosalinda Hopper LPN, June 30, 2019 9:49 AMPatient History Medical History:lumbar strainhemorrhoiddepression anxietySurgical History:Family History:Hypertension (Father)Anxiety (Mother, Father)Depression (Mother, Father)Anxiety (Maternal Grandmother, Paternal Grandmother)Depression (Maternal Grandmother, Paternal Grandmother)Heart disease (Paternal Grandfather)Social/Personal History: Smoking Status: current every day smokerAdvised to Quit/Tobacco Education: YesChief ComplaintHD for depression and anxietyHistory of Present Illness (HPI)I, Carmelita Burgess MA, am scribing for and in the presence of, Dr Donato Eubanks MD23 yo female here for HD for anxiety and depression. Pt states she is very concerned with getting her anxiety under control, 8/10 in severity, worse wtih stress, better with rest, non- radiaitng, not assoc with SI/ HI/ deluiions. She does need refills on medicatios as the IMU only sent her home with 5 pills of Oxazpam. Have discussed the use of something other than Oxazpam due to it being a Benzo. have brought up switching from Effexor to the possible use of Lexapro. Pt states that the anxiety has began approx around February. She states that she was holding off on going to the IMU as she has 2 babies at home, 18mos & 8mos. She does have family on both sides & support within her S/O as well. Pt is not breast feeding. She does feel that the Effexor has been able to help within the last 8 days she has been taking this. Would like to have an in house referral - will initate this today.+ hypothyroidism, 8/10 in severity, worse wtih stress, better with rest, non- radiaitng, not assoc with weaknessNeeds CPE labsTransitions of Care InboundProblem ReviewProblem List was reviewed and/or updated during this visit.Medication Reconciliation & ReviewMedication List was reviewed and/or updated during this visit, including review of any kchs-pee-wrwkyvh medications, herbal therapies, and/or supplements.Allergy ReviewAllergy List was reviewed and/or updated during this visit.Adult Preventive CareProvider Calculated and Reviewed all Clinical Protocols for patient today. Screening Tobacco Screening: Smoking Status: current every day smoker (06/30/2019) Advised to Quit: Yes (06/30/2019)Labs/Meds/Other Counseling-Nutrition and Physical Activity:BMI Interpretation: Obese (06/30/2019) Counseling: Done (06/30/2019) Physical Activity: Done (06/30/2019)Cancer Screening Pap Smear/HPV TestingReviewed: Today's Comments: 06/13/19 [facility] breast [facility].Review of Systems General: Complains of loss of appetite, fatigue, headache, sleep disturbances, weight loss. Denies chills, dizziness, fever, continued fever, feeling ill, sweats, night sweats. GEN: No night sweats, weight loss, fevers, chillsEyes: No vision changesEa rs: No hearing lossNose: No sinus painThroat: No sore throatResp: No sob, wheezingCV: No chest painGI: No abdominal painGU: No dysuria, urinary frequencyMusculoskeletal: No myalgias, arthralgiasNeuro: No CLINE, unilateral paresthesias, weaknessLympatics: No Lymph node swellingEndocrine: No polydipsia, polyuriaEyes: Denies blurring of vision, double vision, irritation, discharge, vision loss, eye pain, eye swelling, droopy eyelid, sensitivity to light, redness, itching. Ears/Nose/Throat: Denies earache, ear discharge, ringing in ears, decreased hearing, nasal congestion, nosebleeds, runny nose, sore throat, hoarseness, difficulty swallowing, dry mouth, tooth pain, bleeding gums, swollen glands. Cardiovascular: Complains of chest pain, trouble breathing w/exertion. Denies palpitations, feeling faint, SOB upon lying down, SOB at night, peripheral edema, elevated blood pressure, decreased heart rate. Respiratory: Denies cough, difficulty breathing, shortness of breath, excessive sputum, coughing up blood, wheezing, chest pain. Breast: Denies discoloration, tenderness, breast changes, breast lump, nipple discharge. Gastrointestinal: Denies nausea, vomiting, bleeding, burning, itching, irritation, cramps, diarrhea, bloody diarrhea, watery diarrhea, constipation, pain or discomfort, feeling any lumps or bumps, pain with BM, pain during receptive anal sex, change in bowel habits, fecal incontinence, abdominal pain, blood in stool, black or tarry stools, jaundice, heartburn, urge to defecate. Genitourinary: Denies urinary incontinence, pain with urination, burning with urination, urinary frequency, urinary hesitancy, urinary urgency, urinary urgency at night, incomplete emptying, blood in urine, absence of menstrual period, heavy menstrual period, prolonged menstrual period, pelvic pain, abnormal vaginal bleeding, painful intercourse, vaginal discharge, vaginal sores, vaginal itching, genital foul odor, genital sores, genital burning, genital itching, genital warts, anal discharge, anal sores, anal warts. Musculoskeletal: Denies back pain, joint pain, leg pain, other pain-see comments, joint swelling, body aches, muscle aches, muscle cramps, muscle weakness, stiffness, recent injury. Skin: Denies rash, hives, redness, itching, dryness, nail changes, suspicious lesions, athlete's foot, rash on palms, rash on bottom of feet. Neurologic: Denies muscle impairment, weakness, numbness/tingling, seizures, slurred speech, feeling faint, tremors, vertigo, paralysis on one side, paralysis on both sides. Psychiatric: Denies suicidal ideation, homicidal ideation, hallucinations, hea ring voices. Endocrine: Denies cold intolerance, heat intolerance, excessive thirst, excessive hunger, excessive urination, weight loss, weight gain. Heme/Lymphatic: Denies abnormal bruising, bleeding, enlarged lymph nodes. Allergic/Immunologic: Denies hives, swelling, hay fever, persistent infections, HIV/STI exposure. Physical ExamGeneral Appearance: well nourished, well hydrated, no acute distressEyes, External: conjunctivae and lids normal, EOMIExternal Ears: normal, no lesions or deformitiesHearing: grossly intactOtoscopy: canals clear, tympanic membranes intact, no fluid, light reflex intact bilaterallyExternal Nose: normal, no lesions or deformitiesNasal: mucosa, septum, and turbinates normal, nares patentLips/Teeth/Gums: normal dentition, no gingival inflammation, no labial lesionsPharynx: tongue normal, posterior pharynx without erythema or exudate, no thrush/aphthous ulcerRespiratory, Auscultation: clear to auscultation bilaterally; no rales, rhonchi, or wheezesRespiratory, Effort: no intercostal retractions or use of accessory musclesCardiovascular, Auscultation: S1, S2 audible; no murmur, rub, or gallop; RRRPeripheral Circulation: no clubbing, cyanosis, edema, or varicositiesAbdomen: soft, non-tender, no masses, bowel sounds normalGait & Station: normalSkin, Inspection: no rashes, lesions, or ulcerationsOrientation: oriented to time, place, and personMood & Affect: Psychiatric exam: Appearance: Neat, well groomed, tiredAffect: WorriedMood: AnxiousThought content: No SI/ HI/ delusionThought processes: Organized,Judgement: FairInsight: FairJudgment & Insight: intactCare Management Plan Transitions of CareInboundRate Your HealthIn general, would you say your health is? Very GoodAssessment & Plan Problems:Added: Anxiety disorder, unspecified (IHR44-Z07.9) Assessment: Instructions: Counseled patient on all diagnoses/ treatments. Return to clinic/ ER for any worsening symptoms or concernsMedication issuedOther specified hypothyroidism (HTN31-Q57.8) Assessment: Instructions: Counseled patient on all diagnoses/ treatments. Return to clinic/ ER for any worsening symptoms or concernsMedication issuedEncounter for screening for other metabolic disorders (VIA74-T83.228) Assessment: Instructions: Counseled patient on all diagnoses/ treatments. Return to clinic/ ER for any worsening symptoms or concernsLabs orderedPatient Instructions/Care Plan: Anxiety disorder- unspecified: Counseled patient on all diagnoses/ treatments. Return to clinic/ ER for any worsening symptoms or concernsMedication issuedOther specified hypothyroidism: Counseled patient on all diagnoses/ treatments. Return to clinic/ ER for any worsening symptoms or concernsMedication issuedEncounter for screening for other metabolic disorders: Counseled patient on all diagnoses/ treatments. Return to clinic/ ER for any worsening symptoms or concernsLabs ordered Plan developed in collaboration with patient and/or familyMedications:LEVOTHYROXINE SODIUM 50 MCG ORAL TABLETATIVAN 0.5 MG ORAL TABLETLEXAPRO 10 MG ORAL TABLETMedication Changes:Added: OXAZEPAM 10 MG ORAL CAPSULE-1 cap po dailyVENLAFAXINE HCL 37.5 MG ORAL TABLET-3 tab po dailyNew Prescription:LEXAPRO 10 MG ORAL TABLET-1 po daily Qty: 30[Tablet] Refills: 5 Method: ElectronicATIVAN 0.5 MG ORAL TABLET-1 po daily prn severe anxiety Qty: 15[Tablet] Refills: 0 Method: ElectronicLEVOTHYROXINE SODIUM 50 MCG ORAL TABLET-1/2 tab po daily for 3 days then inc to 1 po daily Qty: 30[Tablet] Refills: 5 Method: ElectronicRemoved:OXAZEPAM 10 MG ORAL CAPSULE-1 cap po daily, VENLAFAXINE HCL 37.5 MG ORAL TABLET-3 tab po dailyAllergies:* HYDROXYZINE (Moderate)Orders:Psychology Consult [CPT-60134] Telepsychiatry Consult [CPT- 06501] COMP METABOLIC PANEL [CPT-02215] CBC W/DIFF [CPT-13984] HgBA1c [CPT-8303 6] LIPID PANEL [CPT-75411] TSH [CPT-70254] T-4 free [CPT-79518] Vitamin D 250H Unspecified [CPT-13616] URINALYSIS [CPT-84044] Adult - Ofc Vst, NEW, Level IV [CPT-89994] Follow-Up Return to clinic: in 30 days for f/uAdditional Follow-Up: Counseled patient on all diagnoses/ treatments. Return to clinic/ ER for any worsening symptoms or concernsClinical Visit Summary Declined Name Value Range Interpretation Code Description Data Madalyn rce(s) Supporting Document(s) Procedure
[2020-08-20] MEDS ORDERED: NS 1,000 ML IV ONE (22:45)
[2020-08-20 23:42] LABS: BASO % 0.5 % (0.0-1.0); EOS # 0.1 10^3/uL (0.0-0.5); EOS % 2.3 % (0.0-3.0); HEMATOCRIT 40.2 % (36.0-47.0); HEMOGLOBIN 12.4 g/dl (12.0-15.5); LYMPH # 2.1 10^3/uL (1.5-5.0); LYMPH % 33.9 % (24.0-44.0); MEAN CORPUSCULAR HEMOGLOBIN 26.2 pg (27.0-33.0); MEAN CORPUSCULAR HGB CONC 30.8 g/dl (32.0-36.5); MEAN CORPUSCULAR VOLUME 84.8 fl (80.0-96.0); MONO # 0.4 10^3/uL (0.0-0.8); MONO % 6.6 % (0.0-5.0); NEUTROPHILS # 3.4 10^3/uL (1.5-8.5); NEUTROPHILS % 56.5 % (36.0-66.0); PLATELET COUNT, AUTOMATED 218 10^3/uL (150-450); RED BLOOD COUNT 4.74 10^6/uL (4.00-5.40); WHITE BLOOD COUNT 6.1 10^3/uL (4.0-10.0)
[2020-08-21 00:18] LABS: ALBUMIN 3.3 GM/DL (3.2-5.2); ALT/SGPT 27 U/L (12-78); BILIRUBIN,DIRECT < 0.1 MG/DL (0.0-0.2); BILIRUBIN,TOTAL 0.2 MG/DL (0.2-1.0); HCG, SERUM QUANTITATIVE 2524 MIU/ML; LIPASE 133 U/L (73-393); TOTAL PROTEIN 6.4 GM/DL (6.4-8.2)
--- OUTSIDE RECORDS SUMMARY | 2020-08-21 01:01 | CCD ---
Author Author [facility] Organization [facility] Address Unknown Phone Unavailable Care Team Providers Care Grocery Manager Name Role Phone Carol EUBANKS MD Unavailable [...] Unavailable Carol EUBANKS MD Unavailable Unavailable Carol EUBNAKS MD Unavailable Unavailable Carol EUBANKS MD Unavailable [...] is protected by Article 27-F of the [facility] Public Health law. If you continue you may have access to information: Regarding HIV / AIDS; Provided by facilities licensed or operated by the [facility] Office of Mental Health; or Provided by the [facility] Office for People With Developmental Disabilities. If such information is present, then the following [facility] mandated warning applies: This information has been [...] law may result in a fine or mcc sentence or both. A general authorization for the release of medical or other information is NOT sufficient authorization for further disc losure. Allergies and Adverse Reactions Type Description Substance Reaction Status Data Source(s ) Drug allergy HYDROXYZINE HYDROXYZINE lightheaded, blurry vision [facility] Family History Family Member Name Family Member Gender Family Member Status Date o f Status Description Data Source(s) Unknown Unknown Problem MEDENT ([facility]) Unknown Unknown Problem MEDENT ([facility]) Unknown Unknown Problem MED[facility] ([facility]) Encounters Encounter Providers Location Date Indications Data Source(s ) Outpatient Attender: ATTILA LOFTON RPA-C 05/06/2020 12:04:03 PM EDT [facility]/06/2020 12:04:02 PM EDT [facility]: [facility] 04/18/2020 05:02:01 PM EDT [facility]: [facility] 04/05/2020 01:46:03 PM EDT [facility]: [facility] 03/27/2020 07:49:01 AM EDT [facility]: [facility] 02/29/2020 04:02:01 PM EDT [facility]: [facility] 02/20/2020 09:54:01 AM EDT [facility] Outpatient Attender: NILDA STROUD [facility] 02/05/2020 04:32:02 PM EDT [facility] Outpatient Attender: ATTILA LOFTON RPA-C 02/05/2020 04:14:02 PM EDT [facility] Outpatient Attender: NILDA STROUD [facility] 02/05/2020 11:13:00 AM EDT [facility] Outpatient Attender: ATTILA LOFTON RPA-C 02/02/2020 03:12:01 PM EDT [facility] Outpatient Attender: ATTILA LOFTON RPA-C 02/02/2020 03:12:00 PM EDT [facility] Outpatient Attender: ATTILA LOFTON RPA-C [facility] 02/02/2020 03:11:01 PM EDT [facility] Outpatient Attender: ATTILA LOFTON RPA-C 02/02/2020 02:49:01 PM EDT [facility] Outpatient Attender: ATTILA LOFTON RPA-C 02/02/2020 12:57:01 PM EDT [facility] 01/30/2020 01:52:01 PM [facility] Outpatient Attender: ATTILA MARIN 01/24/2020 03:39:[address] [facility]patient Attender: ATTILA MARIN 01/15/2020 03:07:01 PM [facility]patient Attender: DONATO EUBANKS MD 01/15/2020 03:06:01 P [facility] Outpatient Attender: DONATO EUBANKS MD 01/15/2020 12:05:01 P [facility] Outpatient Attender: DONATO EUBANKS MD 01/02/2020 08:01:25 P [facility] Outpatient Attender: DONTAO EUBANKS MD 12/27/2019 02:32:01 P [facility] Outpatient Attender: DONATO EUBANKS MD 12/23/2019 12:18:35 A [facility] Outpatient Attender: DONATO EUBANKS MD 11/16/2019 05:00:03 P [facility] Outpatient Attender: DONATO EUBANKS MD 10/17/2019 01:42:01 P [facility] Outpatient Attender: DONATO EUBANKS MD 10/06/2019 02:48:01 P [facility] Outpatient Attender: DONATO EUBANKS MD 10/05/2019 03:04:03 P [facility] Outpatient Attender: DONATO EUBANKS MD 10/05/2019 03:04:02 P [facility] Outpatient Attender: DONATO EUBANKS MD 09/29/2019 09:01:07 P [facility] Outpatient Attender: DONATO EUBANKS MD 09/29/2019 02:18:01 P [facility] Outpatient Attender: DONATO EUBANKS MD 09/29/2019 02:17:00 P [facility] Outpatient Attender: DONATO EUBANKS MD 09/29/2019 02:16:01 P [facility] Outpatient Attender: DONATO EUBANKS MD 09/28/2019 12:52:03 P [facility] Outpatient Attender: DONATO EUBANKS MD 09/28/2019 12:52:01 P [facility] Outpatient Attender: DONATO EUBANKS MD 09/28/2019 12:50:05 P [facility] Outpatient Attender: DONATO EUBANKS MD 09/28/2019 11:11:00 A [facility] Outpatient Attender: DONATO EUBANKS MD 09/26/2019 11:18:01 A [facility] Outpatient Attender: DONATO EUBANKS MD 09/26/2019 11:15:01 A [facility] Outpatient Attender: DONATO EUBANKS MD 09/20/2019 12:59:01 P [facility] Outpatient Attender: DONATO EUBANKS MD [facility] 09/06/2019 02:59:00 P [facility] Outpatient Attender: DONATO EUBANKS MD ALL 08/29/2019 02:48:00 P [facility] Outpatient Attender: DONATO EUBANKS MD [facility] 08/29/2019 09:57:01 A [facility] Outpatient Attender: DONATO EUBANKS MD [facility] 08/14/2019 04:25:01 P [facility] Outpatient Attender: DONATO EUBANKS MD [facility] 08/04/2019 02:45:01 P [facility] Outpatient Attender: DONATO EUBANKS MD [facility] 07/03/2019 04:46:01 A [facility] Outpatient Attender: DONATO EUBANKS MD [facility] 07/01/2019 12:00:13 A [facility] Medications Medication Brand Name Start Date Product [...] TABLET BY MOUTH EVERY DAY SOLD: 09/04/2019 [facility] 10 mg 06/26/2019 12:00:00 AM [...] type / Coverage type Policy ID Covered alliance party ID Covered alliance party's relationship to jaimes Policy Jaimes Plan Information BCBS [place] PPO 302/307 [id number] [employer] BCBS B [id number] C TNY [id number] [employer] BCBS P [id number] P [place] [id number] BCBS FEDERAL EMPLOYEE PROGRAM [id number] SP [id number] MEDICAID [id number] SP [id number] Medicaid [place] Medig[place] Part B [id number] Self [id number] [employer] BCBS Health Maintenance Organization (HMO) [id number] Family Dependent [id number] [place] Med[place] Part [place] [id number] Self [id number] [employer] Health Maintenance Organization (HMO) [id number] Family Dependent [id number] MEDICAID M [id number] S [id number] BCBS/Blue Card Commercial [id number] Family Dependent [id number] SELF PAY O UNAVAILABLE S UNAVAILA BLE [employer] BC/BS Commercial [id number] Family Dependent [id number] [employer] BC/BS Commercial [id number] Family Dependent [id number] [employer] BC/BS Commercial [id number] Family Dependent [id number] [employer] BC/BS Commercial [id number] Family Dependent [id number] [employer]/BS Commercial [id number] Family Dependent [id number] [employer]/BS Commercial [id number] Family Dependent Geor ge Darinel [id number] [employer] BC/BS Commercial [id number] Family Dependent Geor ge Darinel [id number] [employer]/BS Commercial [id number] Family Dependent Nora Linn [id number] [employer] BC/BS Commercial [id number] Family Dependent Geor ge Darinel [id number] [employer] BC/BS Commercial [id number] Family Dependent Geor ge Darinel [id number] [employer] BC/BS Commercial [id number] Family Dependent [id number] [employer]/BS Commercial [id number] Family Dependent [id number] [employer]/BS Commercial [id number] Family Dependent [id number] [employer]/BS Commercial [id number] Family Dependent [id number] [employer]/BS Commercial [id number] Family Dependent [id number] [employer]/BS Commercial [id number] Family Dependent [id number] [employer]/BS Commercial [id number] Family Dependent [id number] [employer]/BS Commercial [id number] Family Dependent [id number] [employer]/BS Commercial [id number] Family Dependent [id number] [employer]/BS Commercial [id number] Family Dependent [id number] [employer]/BS Commercial [id number] Family Dependent [id number] [employer] Commercial [id number] Family Dependent [id number] [employer] Commercial [id number] Family Dependent Geor ge Darinel [id number] [employer]/BS Commercial [id number] Family Dependent Geor ge Darinel [id number] [employer]/BS Commercial [id number] Family Dependent Geor ge Darinel [id number] [employer] BC/BS Commercial Family Dependent [employer] BC/BS Commercial Family Dependent [employer] BC/BS Commercial Family Dependent [employer] BC/BS Commercial Family Dependent [id number] Problems, Conditions, and Diagnoses Code Display Name Description Problem Type Effective Dates Data Source(s) V85.38 Body Mass Index 38.0-38.9, adult Body Mass Index 38.0- 38.9, adult 05/06/2020 12:03:05 PM EDT [facility] 787.02 Nausea Nausea 02/05/2020 04:13:02 PM ED [facility] Z32.00 Encounter for test, result unpancho lozada test weakly positive 02/02/2020 03:10:41 PM T [facility] E55.9 Vitamin D deficiency, unspecified Vitamin D deficiency , unspecified 09/28/2019 12:51:26 PM [facility] H43.392 Other vitreous opacities, left eye Vitreous floaters o f left eye 09/28/2019 12:49:00 PM [facility] V70.0 Health Screening Health Screening 09/28/2019 12 :49:00 PM [facility] V70.0 Encounter for general adult medical exam ination with abnormal findings Encounter for general adult medical examination with abnormal findings 09/28/2019 12:49:00 PM [facility] 278.00 Obesity Obesity 09/28/2019 12:49:00 PM [facility] 300.4 Mixed anxiety and depressive disorder Mi xed anxiety and depressive disorder 09/28/2019 12:49:00 PM [facility] Z13.228 Encounter for screening for other metabo lic disorders Encounter for screening for other metabolic disorders 07/03/2019 04:45:51 AM [facility] E03.8 Other specified hypothyroidism Other specified hypothy roidism 07/03/2019 04:44:12 AM [facility] Results ID Date Data Source [id number] 05/06/2020 11:07:45 AM [facility] Measurements & CalculationsHeight: 66 inches (5 [...] been admitted to the hospital? No - [facility] admission date reported today: 06/21/2019Have you been to an emergency room (ER) or urgent care clinic? NoHave you seen another healthcare provider? Yes - [facility] outpatient Healthcare provider date reported today: 06/28/2019Have [...] this visit, including review of any ove n-itp-prtuziy medications, herbal therapies, and/or supplements.Allergy ReviewAllergy List [...] Problems:Changed:From: Dx of BMI 36.0- 36.9 (ICD-V85.36) (BNP09-O78.36) To: Body Mass Index 38.0-38.9, adult (ICD-V85.3 8) (PIK25-H55.38)Assessed:Mixed anxiety and depressive disorder (ICD-300.4) (WAU03-L82.8) Assessment: Instructions: Overall, improvement in moods. Remains [...] out of the reach of childrenObesity (ICD-278.00) (NNR07-Q54.09) Assessment: Instructions: Recommend healthy lifestyle modification. Encourage portion control, healthy food choices (low and healthy carb), and increasing routine physical activity. Recommendation is for 150 minutes throughout the week of cardiovascular exercise.Body Mass Index 38.0-38.9, adult (ICD-V85.38) (FSN64-O84.38) Assessment: Instructions: As above.Other specified hypothyroidism (WZA62-P58.8) Assessment: Instructions: Recheck labs in 09/2020, prior to annual PE.Vitamin D deficiency, unspecified (ICD10- E55.9) Assessment: Instructions: As above.Removed:Nausea (ICD-787.02) (EKY78-J15.0), test weakly positive (ICD-V22.1) (DIP50-G25.00)Patient Instructions/Care Plan: Mixed anxiety and depressive disorder: [...] (Moderate)Orders:Adult - Ofc Vst, EST, Level III [CPT-86170] Follow-Up Return to clinic: 09/2020 for preventive care visitAdditional Follow-Up: annual PE after labsClinical Visit Summary DeclinedMedications:ATIVAN 0.5 MG ORAL TABLET (LORAZEPAM) 1 po daily prn severe anxiety; MDD 0.5mg #15[Tablet] x 0 Entered and Authorized by: Attila Bautista Method used: Electronically to [facility] (retail) [address] [place] [address] RxID: [id number] signed by Attila MCELROY on 05/06/2020 at 12:03 PM Name Value Range Interpretation Code Description Data Madalyn rce(s) Supporting Document(s) ID Date Data Source [id number] 02/02/2020 02:46:56 PM EDT [facility] Measurements & CalculationsHeight: 66 inches (5 [...] you seen another healthcare provider? Yes - [facility] outpatient MHHave you seen a dentist? NoIntake performed by: Grace Fieror LPN, February 02, 2020 2:52 PMRate Your [...] takes the ativan. Previously had counseling at [facility], but wasn't happy with who she saw. [...] during this visit, including review of any vyvx-iyt-eyenayu medications, herbal therapies, and/or supplements.Allergy ReviewAllergy List [...] & Plan Problems:Added: test weakly positive (ICD-V22.1) (FWU64-Z70.00) Assessment: Instructions: Blood work ordered today to confirm , will call with results. education provided.Assessed:Mixed anxiety and depressive disorder (ICD-300.4) (KMA50-J72.8) Assessment: Instructions: Continue current medications as previously prescribed.Nausea (ICD-787.02) (CYH88-R50.0) Assessment: Instructions: As above.Patient Instructions/Care Plan: Mixed [...] TABLETATIVAN 0.5 MG ORAL TABLETAllergies:* HYDROXYZINE (Moderate)Orders:HCG-Quantitative [CPT-81030] Adult - Ofc Vst, EST, Level III [CPT-98598] Follow-Up Return to clinic: in 90 days for follow upAdditional Follow-Up: moodClinical Visit Summary Declined Name Value Range Interpretation Code Description Data Madalyn rce(s) Supporting Document(s) ID Date Data Source [id number] 09/26/2019 11:55:00 AM [facility] Name Value Range Interpretation Code Description Data Madalyn rce(s) Supporting Document(s) HCT 44.7 % 36.0-47.0 N [facility] HGB 14.3 g/dL 12.0-15.5 N [facility] MCH 32.0 G/DL pg 32.0-36.5 N [facility] MCHC 26.9 PG % 27.0-33.0 L [facility] PLATELETS 188 10 10*3/mm3 150-450 N [facility] RBC 5.32 10 10*6/mm3 4.00-5.40 N [facility] RDW 14.6 % 11.5-14.5 H [facility] WBC TOTAL 4.4 4.0-10.0 N [facility] ID Date Data Source [id number] 09/26/2019 11:55:00 AM [facility] Name Value Range Interpretation Code Description Data [facility] rce(s) Supporting Document(s) BG FASTING 86 mg/dL 70-100 N [facility] T4, FREE 1.18 ng/dL 0.76-1.46 N [facility] TSH 2.200 microintl units/mL 0.358-3.[address] [facility] VIT D25 TOT 20.0 ng/mL 30.0-100.0 L [facility] ID Date Data Source [id number] 09/26/2019 11:17:47 AM [facility] Measurements & CalculationsHeight: 66 inches (5 [...] you seen another healthcare provider? Yes - [facility] outpatient MHHave you seen a dentist? NoRate [...] Language: EnglishFamily and Home Address: [address] [place] [address] What is your housing situation today? I have housing Are you worried about losing your housing? NoMoney and Resources What is the highest level of school that you have finished? 9th-12th grade Employed? No Are you seeking work? Yes Insurance: [employer] BCBSIn the past year, have you or any family members you live with been unable to get any of the following when it was really needed? Denies Insecurity: food, utilities, clothing, children's attendant, phone, legal services, otherIn the past year, [...] 2 nights in a row in a mcc, correction, fdc center or juvenile correctional facility? No Has [...] you a refugee? No (Country of origin: [facility]) Do you feel physically and emotionally safe [...] Pt states she has not been to [facility] outpatient due to her anxiety. Currently taking 15mg Lexapro daily, feels some improvement with Lexapro. [place] numb and shaking with Effexor. Ativan she uses approximatley twice weekly for extreme panic. Would like a referral to [facility] instead of [facility]. HPI performed by: Attila MCELROY, September 26, 2019 11:39 AMTransitions of Care InboundProblem ReviewProblem List was reviewed and/or updated during this visit.Medication Reconciliation & ReviewMedication List was reviewed and/or updated during this visit, including review of any wqxi-flq-lfeslzb medications, herbal therapies, and/or supplements.Allergy ReviewAllergy List [...] adult medical examination with abnormal findings (ICD-V70.0) (HSU45-E47.01) Assessment: Instructions: Recommend annual medical appointments. Recommend routine dental and vision care. Recommend influenza vaccines annually.Health Screening (ICD- V70.0) (KHF85-C33.9) Assessment: Instructions: Fasting labs drawn today.Vitreous floaters of left eye (HDA90-C16.392) Assessment: Instructions: Call your eye doctor for evaluation.Obesity (ICD-278.00) (ICD10- E66.09) Assessment: Instructions: Recommend healthy lifestyle modification. Encourage portion control, healthy food choices, and increasing routine physical activity. Recommendation is for 150 minutes throughout the week of cardiovascular exercise.BMI 36.0-36.9 (ICD-V85.36) (QQQ57-S35.36) Assessment: Instructions: As above. Check fasting labs today.Changed:From: Dx of Anxiety disorder, unspecified (HLF08-X34.9) To: Mixed anxiety and depressive disorder (ICD-300.4) (OQO30-D49.8)Assessed:Other specified hypothyroidism (YLU36-O07.8) Assessment: Instructions: Repeat thyroid levels today. Will call you if dose needs adjustment.Mixed anxiety and depressive disorder (ICD-300.4) (TWL74-U88.8) Assessment: Instructions: Increase your Lexapro to 20mg [...] 30[Tablet] Refills: 0Allergies:* HYDROXYZINE (Moderate)Orders:COMP METABOLIC PANEL [CPT-51105] CBC W/DIFF [CPT-71479] LIPID PANEL [CPT-26035] TSH [CPT-05720] T-4 free [CPT-98344] Vitamin D 250H Unspecified [CPT-46352] Mental Health Consult [CPT-40400] 19033 - Venipuncture [CPT-44263] Preventive, Est, (18-39) [CPT-98086] Follow-Up Return to clinic: in 6 weeks for follow upAdditional Follow-Up: anxiety follow-upClinical Visit Summary CompletedMedications:ATIVAN 0.5 MG ORAL TABLET (LORAZEPAM) 1 po daily prn severe anxiety #15[Tablet] x 0 Route:ORAL Entered and Authorized by: Attila MCELROY Method used: Electronically to [facility] (retail) [address] [place] [address] Note to Pharmacy: Route: ORAL; RxID: [id number] 20 MG ORAL TABLET (ESCITALOPRAM OXALATE) Take 1 tablet PO daily #30[Tablet] x 1 Route:ORAL Entered and Authorized by: Attila MCELROY Method used: Electronically to [facility] (retail) [address] [place] [address] Note to Pharmacy: Route: ORAL; Indications: MIXED ANXIETY AND DEPRESSIVE DISORDER RxID: [id number] LEXAPRO 10 MG ORAL TABLET (ESCITALOPRAM OXALATE) 1 po daily #30[Tablet] x 0 Route:ORAL Entered by: Attila MCELROY Authorized by: Aditya Marie MD Method used: Electronically to [facility] (retail) [address] [place] [address] RxID: [id number]]Labs In-House Blood TestsDate/Time Collected: September 26, 2019 11:58 AMTest Result Reference Range Normal ValueComments: blood draw done in office, taken from left ac, tolerated well.Aneta Rangel, September 26, 2019 11:58 AM Name Value Range Interpretation Code Description Data Madalyn rce(s) Supporting Document(s) ID Date Data Source [id number] 06/30/2019 09:40:12 AM [facility] Measurements & CalculationsHeight: 66 inches (5 [...] been admitted to the hospital? Yes - [facility]HHospital admission date reported today: 06/21/2019Have you been to an emergency room (ER) or urgent care clinic? NoHave you seen another healthcare provider? Yes - [facility] outpatient Healthcare provider date reported today: 06/28/2019Have [...] during this visit, including review of any tobk-omc-sqwanqp medications, herbal therapies, and/or supplements.Allergy ReviewAllergy List [...] GoodAssessment & Plan Problems:Added: Anxiety disorder, unspecified (YKU34-A96.9) Assessment: Instructions: Counseled patient on all diagnoses/ treatments. Return to clinic/ ER for any worsening symptoms or concernsMedication issuedOther specified hypothyroidism (OCT05-Z03.8) Assessment: Instructions: Counseled patient on all diagnoses/ treatments. Return to clinic/ ER for any worsening symptoms or concernsMedication issuedEncounter for screening for other metabolic disorders (RDS35-Q78.228) Assessment: Instructions: Counseled patient on all diagnoses/ [...] TABLET-3 tab po dailyAllergies:* HYDROXYZINE (Moderate)Orders:Psychology Consult [CPT-96959] Telepsychiatry Consult [CPT- 69480] COMP METABOLIC PANEL [CPT-37203] CBC W/DIFF [CPT-20228] HgBA1c [CPT-8303 6] LIPID PANEL [CPT-80839] TSH [CPT-89545] T-4 free [CPT-05407] Vitamin D 250H Unspecified [CPT-68714] URINALYSIS [CPT-34828] Adult - Ofc Vst, NEW, Level IV [CPT-53813] Follow-Up Return to clinic: in 30 days for f/uAdditional Follow-Up: Counseled patient on all diagnoses/ treatments. Return to clinic/ ER for any worsening symptoms or concernsClinical Visit Summary Declined Name Value Range Interpretation Code Description Data Madalyn rce(s) Supporting Document(s) Procedure
== END 2020-08-21 01:16 | disposition home or self-care (01) ==
LOC: M ED 21:02
DX: O99.891 Other specified diseases and conditions complicating pregnancy (principal); R10.2 Pelvic and perineal pain; O99.281 Endocrine, nutritional and metabolic diseases complicating pregnancy, first trimester; E03.9 Hypothyroidism, unspecified; Z88.8 Allergy status to other drugs, medicaments and biological substances; Z79.899 Other long term (current) drug therapy; Z3A.00 Weeks of gestation of pregnancy not specified

== ENCOUNTER 2020-08-27 16:55 | Emergency (ER) | payer BC ==
[~2020-08-27] VITALS: Ht 167.6 cm; Wt 111.0 kg
[~2020-08-27 16:55] MED LIST changes: -ESCI20TA16; +ESCI20TA16 PO; -LEVO50TA5; +LEVO50TA5 PO; -VITA200016; +VITA200016 PO
--- OUTSIDE RECORDS SUMMARY | 2020-08-27 17:02 | CCD ---
Author Author [facility] Organization [facility] Address Unknown Phone Unavailable Care Team Providers Care Nursing Program Director Name Role Phone Carol EUBANKS MD Unavailable [...] LOFTON, DIOGENES ATTILA RPA-C Unavailable Unavailable LOFTON, DIOGENSE ATTILA RPA-C Unavailable Unavailable LOFTON, DIOGENES ATTILA [...] is protected by Article 27-F of the [facility] Public Health law. If you continue you may have access to information: Regarding HIV / AIDS; Provided by facilities licensed or operated by the [facility] Office of Mental Health; or Provided by the [facility] Office for People With Developmental Disabilities. If such information is present, then the following [facility] mandated warning applies: This information [...] law may result in a fine or skilled nursing sentence or both. A general authorization for the release of medical or other information is NOT sufficient authorization for further disc losure. Allergies and Adverse Reactions Type Description Substance Reaction Status Data Source(s ) Drug allergy HYDROXYZINE HYDROXYZINE lightheaded, blurry vision [facility] Family History Family Member Name Family Member Gender Family Member Status Date o f Status Description Data Source(s) Unknown Unknown Problem MEDENT ([facility]) Unknown Unknown Problem MEDENT ([facility]) Unknown Unknown Problem MEDENT ([facility]) Encounters Encounter Providers Location Date Indications Data Source(s ) Outpatient Attender: ATTILA LOFTON RPA-C 05/06/2020 12:04:03 PM EDT [facility] 05/06/2020 12:04:02 PM EDT [facility]: [facility] 04/18/2020 05:02:01 PM EDT [facility]: [facility] 04/05/2020 01:46:03 PM EDT [facility]: [facility] 03/27/2020 07:49:01 AM EDT [facility]: [facility] 02/29/2020 04:02:01 PM EDT [facility]: [facility] 02/20/2020 09:54:01 AM EDT [facility] Outpatient Attender: NILDA [facility]D [facility] 02/05/2020 04:32:02 PM EDT [facility] Outpatient Attender: ATTILA LOFTON RPA-C 02/05/2020 04:14:02 PM EDT [facility] Outpatient Attender: NILDA STROUD [facility] 02/05/2020 11:13:00 AM EDT [facility] Outpatient Attender: ATTILA LOFTON RPA-C 02/02/2020 03:12:01 PM EDT [facility] Outpatient Attender: ATTILA LOFTON RPA-C 02/02/2020 03:12:00 PM EDT [facility] Outpatient Attender: ATTILA LOFTON RPA-C [facility] 02/02/2020 03:11:01 PM EDT [facility] Outpatient Attender: ATTILA LOFTON RPA-C 02/02/2020 02:49:01 PM EDT [facility] Outpatient Attender: ATTILA LOFTON RPA-C 02/02/2020 12:57:01 PM EDT [facility] 01/30/2020 01:52:01 PM [facility] Outpatient Attender: ATTILA MARIN 01/24/2020 03:39:03 PM [facility] Outpatient Attender: ATTILA MARIN 01/15/2020 03:07:01 PM [facility] Outpatient Attender: DONATO EUBANKS MD 01/15/2020 03:06:01 P [facility] Outpatient Attender: DONATO EUBANKS MD 01/15/2020 12:05:01 P [facility] Outpatient Attender: DONATO EUBANKS MD 01/02/2020 08:01:25 P [facility] Outpatient Attender: DONATO EUBANKS MD 12/27/2019 02:32:01 P [facility] Outpatient Attender: DONATO EUBANKS MD 12/23/2019 12:18:35 A [facility] Outpatient Attender: DONATO EUBANKS MD 11/16/2019 05:00:03 P [facility] Outpatient Attender: DONATO EUBANKS MD 10/17/2019 01:42:01 P [facility] Outpatient Attender: DONATO EUBANKS MD 10/06/2019 02:48:01 P [facility] Outpatient Attender: DONATO EUBANKS MD 10/05/2019 03:04:03 P [facility] Outpatient Attender: DONATO EUBANKS MD 10/05/2019 03:04:02 P [facility] Outpatient Attender: DONATO EUBANKS MD 09/29/2019 09:01:07 P [facility] Outpatient Attender: DONATO EUBANKS MD 09/29/2019 02:18:01 P [facility] Outpatient Attender: DONATO EUBANKS MD 09/29/2019 02:17:00 P [facility] Outpatient Attender: DONATO EUBANKS MD 09/29/2019 02:16:01 P [facility] Outpatient Attender: DONATO EUBANKS MD 09/28/2019 12:52:03 P [facility] Outpatient Attender: DONATO EUBANKS MD 09/28/2019 12:52:01 P [facility] Outpatient Attender: DONATO EUBANKS MD 09/28/2019 12:50:05 P [facility] Outpatient Attender: DONATO EUBANKS MD 09/28/2019 11:11:00 A [facility] Outpatient Attender: DONATO EUBANKS MD 09/26/2019 11:18:01 A [facility] Outpatient Attender: DONATO EUBANKS MD 09/26/2019 11:15:01 A [facility] Outpatient Attender: DONATO EUBANKS MD 09/20/2019 12:59:01 P [facility] Outpatient Attender: DONATO EUBANKS MD [facility] 09/06/2019 02:59:00 P [facility] Outpatient Attender: DONATO EUBANKS MD ALL 08/29/2019 02:48:00 P [facility] Outpatient Attender: DONATO EUBANKS MD [facility] 08/29/2019 09:57:01 A [facility] Outpatient Attender: DONATO EUBANKS MD [facility] 08/14/2019 04:25:01 P [facility] Outpatient Attender: DONATO EUBANKS MD [facility] 08/04/2019 02:45:01 P [facility] Outpatient Attender: DONATO EUBANKS MD [facility] 07/03/2019 04:46:01 A [facility] Outpatient Attender: DONATO EUBANKS MD [facility] 07/01/2019 12:00:13 A [facility] Medications Medication Brand Name Start Date Product [...] EVERY DAY SOLD: 09/04/2019 [facility] Insurance Providers Payer name Policy type / Coverage type Policy ID Covered libertarian ID Covered libertarian's relationship to jaimes Policy Jaimes Plan Information BCBS [place] PPO 302/[id number] [employer] B [id number] C TNY [id number] [employer] P [id number] P [place] [id number] BCBS FEDERAL EMPLOYEE PROGRAM [id number] SP [id number] MEDICAID [id number] SP [id number] [place] Med[place] [id number] Self [id number] [employer] Health Maintenance Organization (HMO) [id number] Family Dependent [id number] [place] [id number] Self [id number] [employer] Health Maintenance Organization (HMO) [id number] Family Dependent [id number] MEDICAID M [id number] S [id number] BCBS/Blue Card Commercial [id number] Family Dependent [id number] SELF PAY O UNAVAILABLE S UNAVAILA BLE [employer] BC/BS Commercial [id number] Family Dependent [id number] [employer]/BS Commercial [id number] Family Dependent [id number] [employer]/BS Commercial [id number] Family Dependent [id number] [employer]/BS Commercial [id number] Family Dependent [id number] [employer]/BS Commercial [id number] Family Dependent [id number] [employer]/BS Commercial [id number] Family Dependent Geor ge Darinel [id number] [employer]/BS Commercial [id number] Family Dependent Geor ge Darinel [id number] [employer]/BS Commercial [id number] Family Dependent Nora M Busto [id number] [employer]/BS Commercial [id number] Family Dependent Geor ge Darinel [id number] [employer]/BS Commercial [id number] Family Dependent Geor ge Darinel [id number] [employer]/BS Commercial [id number] Family Dependent [id number] [employer]/BS Commercial [id number] Family Dependent [id number] [employer]/BS Commercial [id number] Family Dependent [id number] [employer]/BS Commercial [id number] Family Dependent [id number] [employer]/BS Commercial [id number] Family Dependent [id number] [employer]/BS Commercial [id number] Family Dependent [id number] [employer]/BS Commercial [id number] Family Dependent [id number] [employer]/BS Commercial [id number] Family Dependent [id number] [employer]/BS Commercial [id number] Family Dependent [id number] [employer]/BS Commercial [id number] Family Dependent [id number] [employer]/BS Commercial [id number] Family Dependent [id number] [employer]/BS Commercial [id number] Family Dependent [id number] [employer]/BS Commercial [id number] Family Dependent Geor ge Darinel [id number] [employer]/BS Commercial [id number] Family Dependent Geor ge Darinel [id number] [employer]/BS Commercial [id number] Family Dependent Geor ge Darinel [id number] [employer]/BS Commercial Family Dependent [employer] BC/BS Commercial Family Dependent [employer] BC/BS Commercial Family Dependent [employer] BC/BS Commercial Family Dependent [id number] Problems, Conditions, and Diagnoses Code Display Name Description Problem Type Effective Dates Data Source(s) V85.38 Body Mass Index 38.0-38.9, adult Body Mass Index 38.0- 38.9, adult 05/06/2020 12:03:05 PM EDT [facility] 787.02 Nausea Nausea 02/05/2020 04:13:02 PM ED T [facility] Z32.00 Encounter for test, result unk nown test weakly positive 02/02/2020 03:10:41 PM EDT [facility] E55.9 Vitamin D deficiency, unspecified Vitamin D deficiency , unspecified 09/28/2019 12:51:26 PM EST [facility] H43.392 Other vitreous opacities, left eye Vitreous floaters o f left eye 09/28/2019 12:49:00 PM [facility] V70.0 Health Screening Health Screening 09/28/2019 12 :49:00 PM [facility] V70.0 Encounter for general adult medical exam ination with abnormal findings Encounter for general adult medical examination with abnormal findings 09/28/2019 12:49:00 PM [facility] 278.00 Obesity Obesity 09/28/2019 12:49:00 PM ES T [facility] 300.4 Mixed anxiety and depressive disorder Mi xed anxiety and depressive disorder 09/28/2019 12:49:00 PM [facility] Z13.228 Encounter for screening for other metabo lic disorders Encounter for screening for other metabolic disorders 07/03/2019 04:45:51 AM [facility] E03.8 Other specified hypothyroidism Other specified hypothy roidism 07/03/2019 04:44:12 AM [facility] Results ID Date Data Source [id number] 05/06/2020 11:07:45 AM EDT [facility] Measurements & CalculationsHeight: 66 inches [...] been admitted to the hospital? No - [facility] date reported today: 06/21/2019Have you been to an emergency room (ER) or urgent care clinic? NoHave you seen another healthcare provider? Yes - [facility] outpatient MHHealthcare provider date reported today: 06/28/2019Have you seen [...] this visit, including review of any ove i-ihf-xcivagh medications, herbal therapies, and/or supplements.Allergy ReviewAllergy List [...] Problems:Changed:From: Dx of BMI 36.0- 36.9 (ICD-V85.36) (ECK12-M02.36) To: Body Mass Index 38.0-38.9, adult (ICD-V85.3 8) (N[place]36-C46.38)Assessed:Mixed anxiety and depressive disorder (ICD-300.4) (ZNJ68-X92.8) Assessment: Instructions: Overall, improvement in moods. Remains [...] out of the reach of childrenObesity (ICD-278.00) (EVF85-Q00.09) Assessment: Instructions: Recommend healthy lifestyle modification. Encourage portion control, healthy food choices (low and healthy carb), and increasing routine physical activity. Recommendation is for 150 minutes throughout the week of cardiovascular exercise.Body Mass Index 38.0-38.9, adult (ICD-V85.38) (ENL06-Y79.38) Assessment: Instructions: As above.Other specified hypothyroidism (BLT64-E95.8) Assessment: Instructions: Recheck labs in 09/2020, prior to annual PE.Vitamin D deficiency, unspecified (ICD10- E55.9) Assessment: Instructions: As above.Removed:Nausea (ICD-787.02) (DJY83-E78.0), test weakly positive (ICD-V22.1) (CVI65-J17.00)Patient Instructions/Care Plan: Mixed anxiety and depressive disorder: [...] with patient and/or familyMedications:VITAMIN D3 50 MCG (1999) ORAL CAPSULELEXAPRO 20 MG ORAL TABLETLEVOTHYROXINE SODIUM 50 MCG ORAL TABLETATIVAN 0.5 MG ORAL TABLETMedication Changes:Refilled:ATIVAN 0.5 MG ORAL TABLET-1 po daily prn severe anxiety; MDD 0.5mg Qty: 15[Tablet] Refills: 0 Method: ElectronicAllergies:* HYDROXYZINE (Moderate)Orders:Adult - Ofc Vst, EST, Level III [CPT-69015] Follow-Up Return to clinic: 09/2020 for preventive care visitAdditional Follow-Up: annual PE after labsClinical Visit Summary DeclinedMedications:ATIVAN 0.5 MG ORAL TABLET (LORAZEPAM) 1 po daily prn severe anxiety; MDD 0.5mg #15[Tablet] x 0 Entered and Authorized by: Attila Bautista Method used: Electronically to [facility] (retail) [facility] [place] [address] RxID: [id number] signed by Attila MCELROY on 05/06/2020 at 12:03 PM Name Value Range Interpretation Code Description Data Madalyn rce(s) Supporting Document(s) ID Date Data Source [id number] 02/02/2020 02:46:56 PM EDT [facility] Measurements & CalculationsHeight: 66 inches [...] you seen another healthcare provider? Yes - [facility] outpatient MHHave you seen a dentist? NoIntake [...] takes the ativan. Previously had counseling at [facility], but wasn't happy with who she saw. [...] during this visit, including review of any hbkp-wxn-plrdzet medications, herbal therapies, and/or supplements.Allergy ReviewAllergy List [...] & Plan Problems:Added: test weakly positive (ICD-V22.1) (MJG31-K71.00) Assessment: Instructions: Blood work ordered today to confirm , will call with results. education provided.Assessed:Mixed anxiety and depressive disorder (ICD-300.4) (EWP27-H22.8) Assessment: Instructions: Continue current medications as previously prescribed.Nausea (ICD-787.02) (RVT06-S32.0) Assessment: Instructions: As above.Patient Instructions/Care Plan: Mixed [...] TABLETATIVAN 0.5 MG ORAL TABLETAllergies:* HYDROXYZINE (Moderate)Orders:HCG-Quantitative [CPT-96655] Adult - Ofc Vst, EST, Level III [CPT-36211] Follow-Up Return to clinic: in 90 days for follow upAdditional Follow-Up: moodClinical Visit Summary Declined Name Value Range Interpretation Code Description Data Madalyn rce(s) Supporting Document(s) ID Date Data Source [id number] 09/26/2019 11:55:00 AM EST [facility] Name Value Range Interpretation Code Description Data Madalyn rce(s) Supporting Document(s) HCT 44.7 % 36.0-47.0 N [facility] HGB 14.3 g/dL 12.0-15.5 N [facility] MCH 32.0 G/DL pg 32.0-36.5 N [facility] MCHC 26.9 PG % 27.0-33.0 L [facility] PLATELETS 188 10 10*3/mm3 150-450 N [facility] RBC 5.32 10 10*6/mm3 4.00-5.40 N [facility] RDW 14.6 % 11.5-14.5 H [facility] WBC TOTAL 4.4 4.0-10.0 N [facility] ID Date Data Source [id number] 09/26/2019 11:55:00 AM [facility] Name Value Range Interpretation Code Description Data Madalyn rce(s) Supporting Document(s) BG FASTING 86 mg/dL 70-100 N [facility] Health T4, FREE 1.18 ng/dL 0.76-1.46 N [facility] TSH 2.200 microintl units/mL 0.358-3.740 N [facility] VIT D25 TOT 20.0 ng/mL 30.0-100.0 L [facility] ID Date Data Source [id number] 09/26/2019 11:17:47 AM [facility] Measurements & CalculationsHeight: 66 inches (5 [...] you seen another healthcare provider? Yes - [facility] outpatient MHHave you seen a dentist? NoRate [...] or Preferred Language: EnglishFamily and Home Address: [address] [place] [address] [place] [address] What is your housing situation today? I have housing Are you worried about losing your housing? NoMoney and Resources What is the highest level of school that you have finished? 9th-12th grade Employed? No Are you seeking work? Yes Insurance: [employer] BCBSIn the past year, have you or any family members you live with been unable to get any of the following when it was really needed? Denies Insecurity: food, utilities, clothing, children counselor, phone, legal services, otherIn the past year, [...] 2 nights in a row in a skilled nursing, senior care, mcc center or juvenile correctional facility? No Has [...] you a refugee? No (Country of origin: [place]) Do you feel physically and emotionally safe [...] Pt states she has not been to [facility] outpatient due to her anxiety. Currently taking 15mg Lexapro daily, feels some improvement with Lexapro. [place] numb and shaking with Effexor. Ativan she uses approximatley twice weekly for extreme panic. Would like a referral to [facility] instead of [facility]. HPI performed by: Attila MCELROY, September 26, 2019 11:39 AMTransitions of Care InboundProblem ReviewProblem List was reviewed and/or updated during this visit.Medication Reconciliation & ReviewMedication List was reviewed and/or updated during this visit, including review of any kghs-tgb-ukachsa medications, herbal therapies, and/or supplements.Allergy ReviewAllergy List [...] adult medical examination with abnormal findings (ICD-V70.0) (WHI21-F50.01) Assessment: Instructions: Recommend annual medical appointments. Recommend routine dental and vision care. Recommend influenza vaccines annually.Health Screening (ICD- V70.0) (DGC15-K54.9) Assessment: Instructions: Fasting labs drawn today.Vitreous floaters of left eye (ENQ41-P56.392) Assessment: Instructions: Call your eye doctor for evaluation.Obesity (ICD-278.00) (ICD10- E66.09) Assessment: Instructions: Recommend healthy lifestyle modification. Encourage portion control, healthy food choices, and increasing routine physical activity. Recommendation is for 150 minutes throughout the week of cardiovascular exercise.BMI 36.0-36.9 (ICD-V85.36) (CYY76-Q57.36) Assessment: Instructions: As above. Check fasting labs today.Changed:From: Dx of Anxiety disorder, unspecified (VHW42-C20.9) To: Mixed anxiety and depressive disorder (ICD-300.4) (AVR68-Y20.8)Assessed:Other specified hypothyroidism (ZXT98-J34.8) Assessment: Instructions: Repeat thyroid levels today. Will call you if dose needs adjustment.Mixed anxiety and depressive disorder (ICD-300.4) (DRU48-F39.8) Assessment: Instructions: Increase your Lexapro to 20mg [...] 30[Tablet] Refills: 0Allergies:* HYDROXYZINE (Moderate)Orders:COMP METABOLIC PANEL [CPT-29970] CBC W/DIFF [CPT-79825] LIPID PANEL [CPT-69788] TSH [CPT-58287] T-4 free [CPT-80332] Vitamin D 250H Unspecified [CPT-92905] Mental Health Consult [CPT-22940] 65491 - Venipuncture [CPT-20957] Preventive, Est, (18-39) [CPT-18131] Follow-Up Return to clinic: in 6 weeks for follow upAdditional Follow-Up: anxiety follow-upClinical Visit Summary CompletedMedications:ATIVAN 0.5 MG ORAL TABLET (LORAZEPAM) 1 po daily prn severe anxiety #15[Tablet] x 0 Route:ORAL Entered and Authorized by: Attila MCELROY Method used: Electronically to [facility] (retail) [address] [place] [address] Note to Pharmacy: Route: ORAL; RxID: [id number] 20 MG ORAL TABLET (ESCITALOPRAM OXALATE) Take 1 tablet PO daily #30[Tablet] x 1 Route:ORAL Entered and Authorized by: Attila MCELROY Method used: Electronically to [facility] (retail) [address] [place] [address] Note to Pharmacy: Route: ORAL; Indications: MIXED ANXIETY AND DEPRESSIVE DISORDER RxID: [id number] LEXAPRO 10 MG ORAL TABLET (ESCITALOPRAM OXALATE) 1 po daily #30[Tablet] x 0 Route:ORAL Entered by: Attila MCELROY Authorized by: Aditya Marie MD Method used: Electronically to [facility] (retail) [address] [place] [address] RxID: [id number]]Labs In-House Blood TestsDate/Time Collected: September 26, 2019 11:58 AMTest Result Reference Range Normal ValueComments: blood draw done in office, taken from left ac, tolerated well.Aneta Rangel, September 26, 2019 11:58 AM Name Value Range Interpretation Code Description Data Madalyn rce(s) Supporting Document(s) ID Date Data Source [id number] 06/30/2019 09:40:12 AM [facility] Measurements & CalculationsHeight: 66 inches (5 [...] been admitted to the hospital? Yes - [facility] admission date reported today: 06/21/2019Have you been to an emergency room (ER) or urgent care clinic? NoHave you seen another healthcare provider? Yes - [facility] outpatient Healthcare provider date reported today: 06/28/2019Have [...] during this visit, including review of any jkli-dqu-xaxxvjw medications, herbal therapies, and/or supplements.Allergy ReviewAllergy List [...] GoodAssessment & Plan Problems:Added: Anxiety disorder, unspecified (OSH86-B51.9) Assessment: Instructions: Counseled patient on all diagnoses/ treatments. Return to clinic/ ER for any worsening symptoms or concernsMedication issuedOther specified hypothyroidism (UCP60-Y82.8) Assessment: Instructions: Counseled patient on all diagnoses/ treatments. Return to clinic/ ER for any worsening symptoms or concernsMedication issuedEncounter for screening for other metabolic disorders (DXA14-N49.228) Assessment: Instructions: Counseled patient on all diagnoses/ [...] TABLET-3 tab po dailyAllergies:* HYDROXYZINE (Moderate)Orders:Psychology Consult [CPT-61527] Telepsychiatry Consult [CPT- 29528] COMP METABOLIC PANEL [CPT-97104] CBC W/DIFF [CPT-92550] HgBA1c [CPT-8303 6] LIPID PANEL [CPT-68721] TSH [CPT-97370] T-4 free [CPT-68658] Vitamin D 250H Unspecified [CPT-97022] URINALYSIS [CPT-82931] Adult - Ofc Vst, NEW, Level IV [CPT-97240] Follow-Up Return to clinic: in 30 days for f/uAdditional Follow-Up: Counseled patient on all diagnoses/ treatments. Return to clinic/ ER for any worsening symptoms or concernsClinical Visit Summary Declined Name Value Range Interpretation Code Description Data Madalyn rce(s) Supporting Document(s) Procedure
[2020-08-27] MEDS ORDERED: ONDANSETRON 4 MG ORAL DISINTEGRATING TAB PO ONE (17:15)
[2020-08-27] MEDS ORDERED: METOCLOPRAMIDE INJ 10MG/2ML VIAL (J2765 PER 1) IV ONE (17:30)
[2020-08-27] MEDS ORDERED: NS 1,000 ML IV ONE (17:30)
--- OUTSIDE RECORDS SUMMARY | 2020-08-27 17:34 | CCD ---
Author Author [facility] Organization [facility] Address Unknown Phone Unavailable Care Team Providers Care Housing Inspectors Name Role Phone Carol EUBANKS MD Unavailable [...] Carol SEWELL MD Unavailable Unavailable YAYA, Carol ESWELL MD Unavailable Unavailable YAYA, Carol SEWELL MD [...] is protected by Article 27-F of the [facility] Public Health law. If you continue you may have access to information: Regarding HIV / AIDS; Provided by facilities licensed or operated by the [facility] Office of Mental Health; or Provided by the [facility] Office for People With Developmental Disabilities. If such information is present, then the following [facility] mandated warning applies: This information has been [...] law may result in a fine or care home sentence or both. A general authorization for [...] Data Source(s) Unknown Unknown Problem MEDENT ([facility]) Unknown Unknown Problem MEDENT ([facility]) Unknown Unknown Problem MEDENT ([facility]) Encounters Encounter Providers Location Date Indications Data Source(s ) Outpatient Attender: ATTILA LOFTON RPA-C 05/06/2020 12:04:03 PM EDT [facility] Outpatient [facility]: [facility] 05/06/2020 12:04:02 PM EDT [facility] Outpatient Attender: [facility] 04/18/2020 05:02:01 PM EDT [facility] Outpatient Attender: [facility] 04/05/2020 01:46:03 PM EDT [facility] Outpatient Attender: [facility] 03/27/2020 07:49:01 AM EDT [facility] Outpatient Attender: [facility] 02/29/2020 04:02:01 PM EDT [facility] Outpatient Attender: [facility] 02/20/2020 09:54:01 AM EDT [facility] Outpatient Attender: NILDA STROUD [facility] 02/05/2020 04:32:02 PM EDT [facility] Outpatient Attender: ATTILA LOFTON RPA-C 02/05/2020 04:14:02 PM EDT [facility] Outpatient Attender: NILDA STROUD [facility] 02/05/2020 11:13:00 AM EDT [facility] Outpatient Attender: ATTILA LOFTON RPA-C 02/02/2020 03:12:01 PM EDT [facility] Outpatient Attender: ATTILA LOFTON RPA-C 02/02/2020 03:12:00 PM EDT [facility] Outpatient Attender: ATTILA LOFTON RPA-C FP 02/02/2020 03:11:01 PM EDT [facility] Outpatient Attender: ATTILA LOFTON RPA-C 02/02/2020 02:49:01 PM EDT [facility] Outpatient Attender: ATTILA LOFTON RPA-C 02/02/2020 12:57:01 PM EDT [facility] Outpatient Att[facility]: [facility] 01/30/2020 01:52:01 PM [facility] Outpatient Attender: ATTILA MARIN 01/24/2020 03:39:03 PM [facility] Outpatient Attender: ATTILA MARIN 01/15/2020 03:07:01 PM [facility] Outpatient Attender: DONATO EUBANKS MD 01/15/2020 03:06:01 P [facility] Outpatient Attender: DONATO EUBANKS MD 01/15/2020 12:05:01 P [facility] Outpatient Attender: DONATO EUBANKS MD 01/02/2020 08:01:25 P [facility] Outpatient Attender: DONATO EUBANKS MD 12/27/2019 02:32:[address] [facility] Outpatient Attender: DONATO EUBANKS MD 12/23/2019 12:18:35 A [facility] Outpatient Attender: DONATO EUBANKS MD 11/16/2019 05:00:[address] [facility] Outpatient Attender: DONATO EUBANKS MD 10/17/2019 01:42:01 P [facility] Outpatient Attender: DONATO EUBANKS MD 10/06/2019 02:48:[address] [facility] Outpatient Attender: DONATO EUBANKS MD 10/05/2019 03:04:[address] [facility] Outpatient Attender: DONATO EUBANKS MD 10/05/2019 03:04:[address] [facility] Outpatient Attender: DONATO EUBANKS MD 09/29/2019 09:01:[address] [facility] Outpatient Attender: DONATO EUBANKS MD 09/29/2019 02:18:[address] [facility] Outpatient Attender: DONATO EUBANKS MD 09/29/2019 02:17:[address] [facility] Outpatient Attender: DONATO EUBANKS MD 09/29/2019 02:16:01 P [facility] Outpatient Attender: DONATO EUBANKS MD 09/28/2019 12:52:[address] [facility] Outpatient Attender: DONATO EUBANKS MD 09/28/2019 12:52:01 P [facility] Outpatient Attender: DONATO EUBANKS MD 09/28/2019 12:50:05 P [facility] Outpatient Attender: DONATO EUBANKS MD 09/28/2019 11:11:00 A [facility] Outpatient Attender: DONATO EUBANKS MD 09/26/2019 11:18:01 A [facility] Outpatient Attender: DONATO EUBANKS MD 09/26/2019 11:15:01 A [facility] Outpatient Attender: DONATO EUBANKS MD 09/20/2019 12:59:01 P [facility] Outpatient Attender: DONATO EUBANKS MD [facility] 09/06/2019 02:59:00 P [facility] Outpatient Attender: DONATO EUBANKS MD [facility] 08/29/2019 02:48:00 P [facility] Outpatient Attender: DONATO EUBANKS MD [facility] 08/29/2019 09:57:01 A [facility] Outpatient Attender: DONATO EUBANKS MD [facility] 08/14/2019 04:25:01 P [facility] Outpatient Attender: DONATO EUBANKS MD [facility] 08/04/2019 02:45:01 P [facility] Outpatient Attender: DONATO EUBANKS MD [facility] 07/03/2019 04:46:01 A [facility] Outpatient Attender: DONATO EUBANKS MD [facility] 07/01/2019 12:00:13 A [facility] Medications Medication Brand Name Start Date Product [...] Plan Information BCBS [place] PPO 302/307 [id number] [id number] [employer] BCBS B [id number] C TNY [id number] [employer] BCBS P [id number] P [place] [id number] BCBS FEDERAL EMPLOYEE PROGRAM [id number] SP [id number] MEDICAID [id number] SP [id number] [place] Med[place] [id number] Self [id number] [employer] BCBS Health Maintenance Organization (HMO) [id number] Family Dependent [id number] [place] [id number] Self [id number] [employer] BCBS Health Maintenance Organization (HMO) [id number] Family Dependent [id number] MEDICAID M [id number] S [id number] BCBS/Blue Card Commercial [id number] Family Dependent [id number] SELF PAY O UNAVAILABLE S UNAVAILA BLE [employer] BC/BS Commercial [id number] Family Dependent [id number] [employer] BC/BS Commercial [id number] Family Dependent [id number] [employer] BC/BS Commercial [id number] Family Dependent [id number] [employer] BC/BS Commercial [id number] Family Dependent [id number] [employer]/BS Commercial [id number] Family Dependent [id number] [employer]/BS Commercial [id number] Family Dependent Geor ge Darinel [id number] [employer] BC/BS Commercial [id number] Family Dependent Geor ge Darinel [id number] [employer] BC/BS Commercial [id number] Family Dependent Nora M Busto [id number] [employer] BC/BS Commercial [id number] Family Dependent Geor ge Darinel [id number] [employer] BC/BS Commercial [id number] Family Dependent Geor ge Darinel [id number] [employer]/BS Commercial [id number] Family Dependent [id number] [employer]/BS Commercial [id number] Family Dependent [id number] [employer]/BS Commercial [id number] Family Dependent [id number] [employer]/BS Commercial [id number] Family Dependent [id number] [employer]/BS Commercial [id number] Family Dependent [id number] [employer]/BS Commercial [id number] Family Dependent [id number] [employer]/BS Commercial [id number] Family Dependent [id number] [employer]/BS Commercial [id number] Family Dependent [id number] [employer]/BS Commercial [id number] Family Dependent [id number] [employer]/BS Commercial [id number] Family Dependent [id number] [employer]/BS Commercial [id number] Family Dependent [id number] [employer]/BS Commercial [id number] Family Dependent [id number] [employer]/BS Commercial [id number] Family Dependent Geor ge Darinel [id number] [employer]/BS Commercial [id number] Family Dependent Geor ge Darinel [id number] [employer]/BS Commercial [id number] Family Dependent Geor ge Darinel [id number] [employer] BC/BS Commercial Family Dependent [employer] BC/BS Commercial Family Dependent [employer] BC/BS Commercial Family Dependent [employer] BC/BS Commercial Family Dependent [id number] Problems, Conditions, and Diagnoses Code Display Name Description Problem Type Effective Dates Data Source(s) V85.38 Body Mass Index 38.0-38.9, adult Body Mass Index 38.0- 38.9, adult 05/06/2020 12:03:05 PM EDT [facility] 787.02 Nausea Nausea 02/05/2020 04:13:02 PM ED T [facility] Z32.00 Encounter for test, result unk nown test weakly positive 02/02/2020 03:10:41 PM EDT [facility] E55.9 Vitamin D deficiency, unspecified Vitamin D deficiency , unspecified 09/28/2019 12:51:26 PM EST [facility] H43.392 Other vitreous opacities, left eye Vitreous floaters o f left eye 09/28/2019 12:49:00 PM [facility] V70.0 Health Screening Health Screening 09/28/2019 12 :49:00 PM [facility] V70.0 Encounter for general adult medical exam ination with abnormal findings Encounter for general adult medical examination with abnormal findings 09/28/2019 12:49:00 PM [facility] 278.00 Obesity Obesity 09/28/2019 12:49:00 PM ES T [facility] 300.4 Mixed anxiety and depressive disorder Mi xed anxiety and depressive disorder 09/28/2019 12:49:00 PM [facility] Z13.228 Encounter for screening for other metabo lic disorders Encounter for screening for other metabolic disorders 07/03/2019 04:45:51 AM [facility] E03.8 Other specified hypothyroidism Other specified hypothy roidism 07/03/2019 04:44:12 AM [facility] Results ID Date Data Source [id number] 05/06/2020 11:07:45 AM EDT [facility] Measurements & CalculationsHeight: 66 inches (5 [...] been admitted to the hospital? No - [facility] MHHospital admission date reported today: 06/21/2019Have you been to an emergency room (ER) or urgent care clinic? NoHave you seen another healthcare provider? Yes - [facility] outpatient MHHealthcare provider date reported today: 06/28/2019Have [...] this visit, including review of any ove x-fqa-bituciq medications, herbal therapies, and/or supplements.Allergy ReviewAllergy List [...] Problems:Changed:From: Dx of BMI 36.0- 36.9 (ICD-V85.36) (VCO22-Q03.36) To: Body Mass Index 38.0-38.9, adult (ICD-V85.3 8) (SBE54-E41.38)Assessed:Mixed anxiety and depressive disorder (ICD-300.4) (IVQ43-Q82.8) Assessment: Instructions: Overall, improvement in moods. Remains [...] out of the reach of childrenObesity (ICD-278.00) (QSB14-X74.09) Assessment: Instructions: Recommend healthy lifestyle modification. Encourage portion control, healthy food choices (low and healthy carb), and increasing routine physical activity. Recommendation is for 150 minutes throughout the week of cardiovascular exercise.Body Mass Index 38.0-38.9, adult (ICD-V85.38) (EXC74-O60.38) Assessment: Instructions: As above.Other specified hypothyroidism (WBY73-Q63.8) Assessment: Instructions: Recheck labs in 09/2020, prior to annual PE.Vitamin D deficiency, unspecified (ICD10- E55.9) Assessment: Instructions: As above.Removed:Nausea (ICD-787.02) (YIC30-T72.0), test weakly positive (ICD-V22.1) (IQD86-P80.00)Patient Instructions/Care Plan: Mixed anxiety and depressive disorder: [...] (Moderate)Orders:Adult - Ofc Vst, EST, Level III [CPT-45422] Follow-Up Return to clinic: 09/2020 for preventive care visitAdditional Follow-Up: annual PE after labsClinical Visit Summary DeclinedMedications:ATIVAN 0.5 MG ORAL TABLET (LORAZEPAM) 1 po daily prn severe anxiety; MDD 0.5mg #15[Tablet] x 0 Entered and Authorized by: Attila Bautista Method used: Electronically to [facility] (retail) [facility] [place] [address] RxID: [id number] signed by Attila MCELROY on 05/06/2020 at 12:03 PM Name Value Range Interpretation Code Description Data Madalyn rce(s) Supporting Document(s) ID Date Data Source [id number] 02/02/2020 02:46:56 PM EDT [facility] Measurements & CalculationsHeight: 66 inches (5 [...] you seen another healthcare provider? Yes - [facility] outpatient MHHave you seen a dentist? [...] takes the ativan. Previously had counseling at [facility], but wasn't happy with who she [...] during this visit, including review of any tbnp-yhr-brzyzqe medications, herbal therapies, and/or supplements.Allergy ReviewAllergy List [...] & Plan Problems:Added: test weakly positive (ICD-V22.1) (MBD25-N18.00) Assessment: Instructions: Blood work ordered today to confirm , will call with results. education provided.Assessed:Mixed anxiety and depressive disorder (ICD-300.4) (QDS98-I56.8) Assessment: Instructions: Continue current medications as previously prescribed.Nausea (ICD-787.02) (ZDI35-E39.0) Assessment: Instructions: As above.Patient Instructions/Care Plan: Mixed [...] TABLETATIVAN 0.5 MG ORAL TABLETAllergies:* HYDROXYZINE (Moderate)Orders:HCG-Quantitative [CPT-31422] Adult - Ofc Vst, EST, Level III [CPT-89134] Follow-Up Return to clinic: in 90 days for follow upAdditional Follow-Up: moodClinical Visit Summary Declined Name Value Range Interpretation Code Description Data Madalyn rce(s) Supporting Document(s) ID Date Data Source [id number] 09/26/2019 11:55:00 AM EST [facility] Name Value Range Interpretation Code Description Data Madalyn rce(s) Supporting Document(s) HCT 44.7 % 36.0-47.0 N [facility] HGB 14.3 g/dL 12.0-15.5 N [facility] MCH 32.0 G/DL pg 32.0-36.5 N [facility] MCHC 26.9 PG % 27.0-33.0 L [facility] PLATELETS 188 10 10*3/mm3 150-450 N [facility] RBC 5.32 10 10*6/mm3 4.00-5.40 N [facility] RDW 14.6 % 11.5-14.5 H [facility] WBC TOTAL 4.4 4.0-10.0 N [facility] ID Date Data Source [id number] 09/26/2019 11:55:00 AM [facility] Name Value Range Interpretation Code Description Data Madalyn rce(s) Supporting Document(s) BG FASTING 86 mg/dL 70-100 N [facility] T4, FREE 1.18 ng/dL 0.76-1.46 N [facility] TSH 2.200 microintl units/mL 0.358-3.[address] [facility] VIT D25 TOT 20.0 ng/mL 30.0-100.0 L [facility] ID Date Data Source [id number] 09/26/2019 11:17:47 AM [facility] Measurements & CalculationsHeight: 66 inches [...] you seen another healthcare provider? Yes - [facility] outpatient MHHave you seen a dentist? [...] or Preferred Language: EnglishFamily and Home Address: [address] [place] [address] [place] [address] What is your housing situation today? I [...] really needed? Denies Insecurity: food, utilities, clothing, child care associate teacher, phone, legal services, otherIn the past year, [...] 2 nights in a row in a care home, jail, long term center or juvenile correctional facility? No Has [...] Pt states she has not been to [facility] outpatient due to her anxiety. Currently taking 15mg Lexapro daily, feels some improvement with Lexapro. [place] numb and shaking with Effexor. Ativan she uses approximatley twice weekly for extreme panic. Would like a referral to [facility] instead of [facility]. HPI performed by: Attila MCELROY, September 26, 2019 11:39 AMTransitions of Care InboundProblem ReviewProblem List was reviewed and/or updated during this visit.Medication Reconciliation & ReviewMedication List was reviewed and/or updated during this visit, including review of any tzwe-tjo-okzezpo medications, herbal therapies, and/or supplements.Allergy ReviewAllergy List [...] adult medical examination with abnormal findings (ICD-V70.0) (XJM71-C50.01) Assessment: Instructions: Recommend annual medical appointments. Recommend routine dental and vision care. Recommend influenza vaccines annually.Health Screening (ICD- V70.0) (VTG25-C51.9) Assessment: Instructions: Fasting labs drawn today.Vitreous floaters of left eye (LDZ06-J24.392) Assessment: Instructions: Call your eye doctor for evaluation.Obesity (ICD-278.00) (ICD10- E66.09) Assessment: Instructions: Recommend healthy lifestyle modification. Encourage portion control, healthy food choices, and increasing routine physical activity. Recommendation is for 150 minutes throughout the week of cardiovascular exercise.BMI 36.0-36.9 (ICD-V85.36) (RMJ82-N29.36) Assessment: Instructions: As above. Check fasting labs today.Changed:From: Dx of Anxiety disorder, unspecified (PXS09-C66.9) To: Mixed anxiety and depressive disorder (ICD-300.4) (ABP53-P62.8)Assessed:Other specified hypothyroidism (RDW72-W67.8) Assessment: Instructions: Repeat thyroid levels today. Will call you if dose needs adjustment.Mixed anxiety and depressive disorder (ICD-300.4) (STY72-Z48.8) Assessment: Instructions: Increase your Lexapro to 20mg [...] 30[Tablet] Refills: 0Allergies:* HYDROXYZINE (Moderate)Orders:COMP METABOLIC PANEL [CPT-79472] CBC W/DIFF [CPT-59040] LIPID PANEL [CPT-18700] TSH [CPT-22594] T-4 free [CPT-13407] Vitamin D 250H Unspecified [CPT-91540] Mental Health Consult [CPT-16655] 37299 - Venipuncture [CPT-20545] Preventive, Est, (18-39) [CPT-00230] Follow-Up Return to clinic: in 6 weeks for follow upAdditional Follow-Up: anxiety follow-upClinical Visit Summary CompletedMedications:ATIVAN 0.5 MG ORAL TABLET (LORAZEPAM) 1 po daily prn severe anxiety #15[Tablet] x 0 Route:ORAL Entered and Authorized by: Attila MCELROY Method used: Electronically to [facility] (retail) [address] [place] [address] Note to Pharmacy: Route: ORAL; RxID: [id number] 20 MG ORAL TABLET (ESCITALOPRAM OXALATE) Take 1 tablet PO daily #30[Tablet] x 1 Route:ORAL Entered and Authorized by: Attila MCELROY Method used: Electronically to [facility] (retail) [address] [place] [address] Note to Pharmacy: Route: ORAL; Indications: MIXED ANXIETY AND DEPRESSIVE DISORDER RxID: [id number] LEXAPRO 10 MG ORAL TABLET (ESCITALOPRAM OXALATE) 1 po daily #30[Tablet] x 0 Route:ORAL Entered by: Attila MCELROY Authorized by: Aditya Marie MD Method used: Electronically to [facility]* (retail) [address] [place] [address] RxID: [id number]]Labs In-House Blood TestsDate/Time Collected: September 26, 2019 11:58 AMTest Result Reference Range Normal ValueComments: blood draw done in office, taken from left ac, tolerated well.Aneta Rangel, September 26, 2019 11:58 AM Name Value Range Interpretation Code Description Data Madalyn rce(s) Supporting Document(s) ID Date Data Source [id number] 06/30/2019 09:40:12 AM [facility] Measurements & CalculationsHeight: 66 inches [...] been admitted to the hospital? Yes - [facility]HHospital admission date reported today: 06/21/2019Have you been to an emergency room (ER) or urgent care clinic? NoHave you seen another healthcare provider? Yes - [facility] outpatient Healthcare provider date reported today: [...] during this visit, including review of any slal-gjt-brtmnof medications, herbal therapies, and/or supplements.Allergy ReviewAllergy List [...] GoodAssessment & Plan Problems:Added: Anxiety disorder, unspecified (BQR05-O50.9) Assessment: Instructions: Counseled patient on all diagnoses/ treatments. Return to clinic/ ER for any worsening symptoms or concernsMedication issuedOther specified hypothyroidism (LXJ66-F44.8) Assessment: Instructions: Counseled patient on all diagnoses/ treatments. Return to clinic/ ER for any worsening symptoms or concernsMedication issuedEncounter for screening for other metabolic disorders (QNE73-L59.228) Assessment: Instructions: Counseled patient on all diagnoses/ [...] TABLET-3 tab po dailyAllergies:* HYDROXYZINE (Moderate)Orders:Psychology Consult [CPT-34805] Telepsychiatry Consult [CPT- 61400] COMP METABOLIC PANEL [CPT-98774] CBC W/DIFF [CPT-36418] HgBA1c [CPT-8303 6] LIPID PANEL [CPT-83785] TSH [CPT-03462] T-4 free [CPT-56040] Vitamin D 250H Unspecified [CPT-51050] URINALYSIS [CPT-52550] Adult - Ofc Vst, NEW, Level IV [CPT-41096] Follow-Up Return to clinic: in 30 days for f/uAdditional Follow-Up: Counseled patient on all diagnoses/ treatments. Return to clinic/ ER for any worsening symptoms or concernsClinical Visit Summary Declined Name Value Range Interpretation Code Description Data Madalyn rce(s) Supporting Document(s) Procedure
[2020-08-27 17:52] LABS: BASO % 0.7 % (0.0-1.0); EOS # 0.1 10^3/uL (0.0-0.5); EOS % 1.2 % (0.0-3.0); HEMATOCRIT 41.7 % (36.0-47.0); HEMOGLOBIN 13.2 g/dl (12.0-15.5); LYMPH # 1.4 10^3/uL (1.5-5.0); LYMPH % 23.6 % (24.0-44.0); MEAN CORPUSCULAR HEMOGLOBIN 26.8 pg (27.0-33.0); MEAN CORPUSCULAR HGB CONC 31.7 g/dl (32.0-36.5); MEAN CORPUSCULAR VOLUME 84.8 fl (80.0-96.0); MONO # 0.4 10^3/uL (0.0-0.8); MONO % 7.6 % (0.0-5.0); NEUTROPHILS # 3.8 10^3/uL (1.5-8.5); NEUTROPHILS % 66.6 % (36.0-66.0); PLATELET COUNT, AUTOMATED 193 10^3/uL (150-450); RED BLOOD COUNT 4.92 10^6/uL (4.00-5.40); WHITE BLOOD COUNT 5.8 10^3/uL (4.0-10.0)
[2020-08-27 18:19] LABS: C REACTIVE PROTEIN QUANTITATIV 3.36 MG/DL (0.00-0.30)
[2020-08-27 18:27] LABS: MONO REFLEX EBV COMP NEGATIVE (NEGATIVE)
[2020-08-27 18:31] LABS: ERYTHROCYTE SEDIMENTATION RATE 19 mm/hr (0-20)
[2020-08-27 18:45] LABS: RSV AMPLIFICATION NEGATIVE (NEGATIVE)
[2020-08-27] MEDS ORDERED: ONDA4TAB6 PO (20:14)
[2020-08-27 20:22] VITALS: BP 131/69
[2020-08-29 14:11] LABS: EBV AB TO NUCLEAR ANTIGEN >600.0 U/mL (0.0-17.9); EBV VIRAL CAPSID AG IgG >600.0 U/mL (0.0-17.9); EBV VIRAL CAPSID AG IgM <36.0 U/mL (0.0-35.9)
== END 2020-08-27 20:23 | disposition home or self-care (01) ==
LOC: M ED 16:55
DX: O21.9 Vomiting of pregnancy, unspecified (principal); R59.0 Localized enlarged lymph nodes; O99.281 Endocrine, nutritional and metabolic diseases complicating pregnancy, first trimester; E03.9 Hypothyroidism, unspecified; Z3A.01 Less than 8 weeks gestation of pregnancy; Z79.899 Other long term (current) drug therapy; Z79.890 Hormone replacement therapy; Z88.8 Allergy status to other drugs, medicaments and biological substances
CPT/HCPCS: 80047; 85025; 85652; 86140; 86308; 86664; 86665; 87631; 87880; 96361; 96374; 99284; J2765; Q0162

== ENCOUNTER → 2020-09-04 | Outpatient (REF) | payer BC ==
[2020-09-04 18:30] LABS: THYROID STIMULATING HORMONE 3.48 uIU/ML (0.358-3.740)
[2020-09-04 18:32] LABS: TOTAL 25(OH) VITAMIN D 27.7 NG/ML (30.0-100.0)
== END ==
LOC: M LAB REF 17:12
PROVIDERS: ATTEND Physician Assistant
DX: E55.9 Vitamin D deficiency, unspecified (principal); E03.9 Hypothyroidism, unspecified

== ENCOUNTER → 2020-10-31 | Outpatient (REF) | payer BC ==
[2020-10-31 15:42] LABS: HEMATOCRIT 40.4 % (36.0-47.0); HEMOGLOBIN 12.9 g/dl (12.0-15.5); MEAN CORPUSCULAR HEMOGLOBIN 26.9 pg (27.0-33.0); MEAN CORPUSCULAR HGB CONC 31.9 g/dl (32.0-36.5); MEAN CORPUSCULAR VOLUME 84.3 fl (80.0-96.0); PLATELET COUNT, AUTOMATED 191 10^3/uL (150-450); RED BLOOD COUNT 4.79 10^6/uL (4.00-5.40)
[2020-10-31 16:56] LABS: HEPATITIS C VIRUS ABY INDEX < 0.0 INDEX (<0.8); HIV 1&2 SCREEN CENTAUR NEGATIVE (NEGATIVE)
== END ==
LOC: M PLALAB 13:05
PROVIDERS: ATTEND Advanced Practice Midwife
DX: Z36.89 Encounter for other specified antenatal screening (principal); Z34.91 Encounter for supervision of normal pregnancy, unspecified, first trimester

== ENCOUNTER → 2020-12-13 | Outpatient (CLI) | payer BC ==
--- NOTE | 2020-12-13 17:20 | REP ---
INDICATION: ANATOMY. COMPARISON: None. TECHNIQUE: Transabdominal obstetric sonography. FINDINGS: Scanning through the gravid uterus demonstrates a viable single intrauterine gestation in breech lie. motion is observed and heart rate is recorded at 133 beats per minute. A anterior placenta is seen, grade 1, without evidence of placenta previa. Closed cervical length is measured at 3.7 cm transabdominally. No extrauterine abnormality is observed. Amniotic fluid is subjectively normal. No anomaly is seen. The following anatomic structures are identified and felt to be sonographically unremarkable: cranium, choroid plexus, cavum, cerebellum and posterior fossa, lungs, four-chamber heart with left and right ventricular outflow tract views, diaphragm, left-sided stomach, abdominal wall cord insertion, three-vessel umbilical cord, kidneys and bladder, spine, and upper and lower extremities. face and profile views are less than optimally achieved today due to position. Biometry chart: BPD 5.1 cm, 21 weeks 3 days Head circumference 19.6 cm, 21 weeks 5 days Abdominal circumference 16.6 cm, 21 weeks 4 days Femur length 3.5 cm, 21 weeks 1 day Humeral length 3.3 cm, 20 weeks 6 days HC AC ratio normal 1.18 Cephalic index normal 0.71 Estimated weight 424 g, 0 lb 14 oz, 24th percentile for 21 weeks 6 days IMPRESSION: Viable single intrauterine gestation at 21 weeks 3 days by today's composite sonographic criteria. GABRIEL by today's sonography April 22, 2021.. No complication identified. Gestational age estimate based on provided GABRIEL is 20/1 weeks 6 days, April 19, 2021. face and profile views were less than optimally achieved today due to position. <Electronically signed by Marcin Ashley > 12/13/20 [id number]
== END ==
LOC: M WHC 11:03
PROVIDERS: ATTEND Advanced Practice Midwife
DX: Z36.9 Encounter for antenatal screening, unspecified (principal); Z3A.21 21 weeks gestation of pregnancy

== ENCOUNTER → 2021-02-06 | Outpatient (CLI) | payer BC ==
[2021-02-06 16:58] LABS: HEMATOCRIT 35.9 % (36.0-47.0); HEMOGLOBIN 11.4 g/dl (12.0-15.5); MEAN CORPUSCULAR HEMOGLOBIN 26.5 pg (27.0-33.0); MEAN CORPUSCULAR HGB CONC 31.8 g/dl (32.0-36.5); MEAN CORPUSCULAR VOLUME 83.3 fl (80.0-96.0); PLATELET COUNT, AUTOMATED 198 10^3/uL (150-450); RED BLOOD COUNT 4.31 10^6/uL (4.00-5.40); WHITE BLOOD COUNT 7.3 10^3/uL (4.0-10.0)
[2021-02-06 17:20] LABS: FREE T4 1.05 NG/DL (0.76-1.46); THYROID STIMULATING HORMONE 1.35 uIU/ML (0.358-3.740)
== END ==
LOC: M PLALAB 14:12
PROVIDERS: ATTEND Advanced Practice Midwife
DX: Z34.92 Encounter for supervision of normal pregnancy, unspecified, second trimester (principal)

== ENCOUNTER → 2021-02-06 | Outpatient (CLI) | payer BC ==
--- NOTE | 2021-02-07 | REP ---
INDICATION: F/U ANATOMY COMPARISON: 12/13/2020 TECHNIQUE: Transabdominal obstetrical ultrasound with color Doppler evaluation. FINDINGS: Examination demonstrates a single live intrauterine in cephalic presentation. motion is identified by technologist. Placenta is noted anterior and grade 1 without evidence for placenta previa or abruption. Amniotic fluid volume is normal. Cervix measures 3.7 cm in length and appears closed.. Selected gestational age: 29 weeks 5 days with GABRIEL 04/19/2021. Gestational age by current measurements 29 weeks 6 days with GABRIEL 04/18/2021. FHR equals 136 beats per minute. Estimated weight 1478 grams (44thpercentile). Anatomical assessment of the facial features and facial profile are again limited due to position and motion. IMPRESSION: Single live intrauterine in cephalic presentation demonstrating appropriate estimated weight. Limited evaluation of the facial profile again due to positioning and motion. <Electronically signed by Alex Novak > 02/06/21 1541
== END ==
LOC: M WHC 14:18
PROVIDERS: ATTEND Advanced Practice Midwife
DX: Z34.92 Encounter for supervision of normal pregnancy, unspecified, second trimester (principal)

== ENCOUNTER → 2021-03-18 | Outpatient (REF) | payer BC | LOC: M SFHCWAGY 12:46 | PROVIDERS: ATTEND Advanced Practice Midwife | DX: Z34.93 Encounter for supervision of normal pregnancy, unspecified, third trimester (principal) ==

== ENCOUNTER 2021-03-29 19:57 | Inpatient (IN) | payer BC ==
[~2021-03-29] VITALS: Ht 167.6 cm; Wt 108.0 kg
[2021-03-29 20:11] VITALS: BP 109/65
[2021-03-29 20:13] VITALS: BP 109/65
[2021-03-29] MEDS ORDERED: LACTATED RINGER'S 1000 ML IV STA (20:47)
[2021-03-29] MEDS ORDERED: OXYTOCIN INJ 10 UNITS/ML VIAL (J2590) IM PRN (20:50)
[2021-03-29] MEDS ORDERED: LIDOCAINE 1% MDV 20ML VIAL INFIL PRN (20:50)
[2021-03-29] MEDS ORDERED: TRANEXAMIC ACID INJection 1,000 MG in NS 100 ML IV PRN (20:50)
[2021-03-29] MEDS ORDERED: CARBOPROST TROMETHAMINE 250 MCG/ML AMP IM PRN (20:50)
[2021-03-29] MEDS ORDERED: OXYTOCIN DRIP 30 UNITS in IV 1 EA IV PRN ×4 (20:50)
[2021-03-29] MEDS ORDERED: METHYLERGONOVINE MALEATE 0.2 MG/ML VIAL (J2210) IM PRN (20:50)
[2021-03-29 21:02] VITALS: BP 118/58
[2021-03-29] MEDS ORDERED: HOME MED LIST COMPLETE! XX SCH (21:40)
[2021-03-29 22:16] LABS: HEMATOCRIT 35.8 % (36.0-47.0); HEMOGLOBIN 11.4 g/dl (12.0-15.5); MEAN CORPUSCULAR HEMOGLOBIN 25.6 pg (27.0-33.0); MEAN CORPUSCULAR HGB CONC 31.8 g/dl (32.0-36.5); MEAN CORPUSCULAR VOLUME 80.4 fl (80.0-96.0); PLATELET COUNT, AUTOMATED 190 10^3/uL (150-450); RED BLOOD COUNT 4.45 10^6/uL (4.00-5.40); WHITE BLOOD COUNT 5.6 10^3/uL (4.0-10.0)
[2021-03-29 22:19] VITALS: BP 104/57
[2021-03-29 22:48] VITALS: BP 112/55
[2021-03-29 23:28] VITALS: BP 121/58
[2021-03-30] VITALS (7 sets, daily range): BP systolic 100–118; BP diastolic 52–70
[2021-03-30] MEDS ORDERED: OXYTOCIN 30 UNITS IN 0.9% NaCl 500ML IV BAG (J2590) As Ordered ONE (00:47)
[2021-03-30] MEDS ORDERED: DOCUSATE SODIUM 100MG CAPSULE PO PRN (01:40)
[2021-03-30] MEDS ORDERED: DIBUCAINE 1% OINTMENT 30GM TOP PRN (01:40)
[2021-03-30] MEDS ORDERED: RHOGAM 300 MCG (1500 IU) INJ (J2790) IM SCH (01:40)
[2021-03-30] MEDS ORDERED: IBUPROFEN 600MG TAB PO PRN (01:40)
[2021-03-30] MEDS ORDERED: METHYLERGONOVINE MALEATE 0.2 MG TAB PO PRN (01:40)
[2021-03-30] MEDS ORDERED: MEASLES,MUMPS,RUBELLA VACCINE INJ (MMR-II) (90707) SC SCH (01:40)
[2021-03-30] MEDS ORDERED: ACETAMINOPHEN TAB 650MG DOSE (2X325MG) PO PRN (01:40)
[2021-03-30] MEDS: IBUPROFEN 800 MG TAB PO PRN ×2 (02:10→16:27)
[2021-03-30] MEDS: LORazepam 0.5 MG TAB PO PRN (02:34)
[2021-03-30] MEDS: ACETAMINOPHEN 500 MG TAB PO PRN ×2 (03:34→21:04)
[2021-03-30] MEDS: LEVOTHYROXINE 50MCG TABLET (0.05MG) PO SCH (06:14)
--- NOTE | 2021-03-30 06:40 | HPE ---
HISTORY AND PHYSICAL DATE OF ADMISSION: 03/29/2021 SUBJECTIVE: Ana is a 25-year-old, 3, para 2-0-0-2, at 37 and 1/7 weeks gestation with an EDC of 04/19/2021 based on last menstrual period and confirmed by first trimester ultrasound. She presents to Labor and Delivery today with report of onset of uncomfortable contractions at about 1700. She reports that they have been 2-3 minutes for the last hour. She denies vaginal bleeding and leakage of fluid. The fetus has been active. Her care was initiated at [facility] in the first trimester. course complicated by history of depression and antepartal anxiety as well as smoking. OBSTETRIC HISTORY: November 28, 2017, 7 lb, 9 oz male, vaginal delivery, 40 weeks gestation. October 06, 2018, 6 lb, 14 oz male, vaginal delivery, 39 weeks gestation. OBSTETRIC LABS: O positive, antibody screen negative, syphilis negative. Gonorrhea and Chlamydia negative. Hepatitis B surface antigen negative. Hepatitis C antibody nonreactive. HIV nonreactive. Rubella immune. Gestational diabetic screen normal at 93. Urine culture: No growth and GBS is negative. PAST MEDICAL HISTORY: 1. Hypothyroid. 2. Depression. 3. Anxiety. 4. Vitamin B deficiency. SURGERIES: None. FAMILY HISTORY: Hypothyroid. SOCIAL HISTORY: The patient is single. However, her long-term partner is at bedside and he is supportive. She does report smoking throughout her . Denies alcohol and drug use. No history of any sexually transmitted infections and she denies history of abuse, physical, sexual and emotional. ALLERGIES: HYDROXYZINE WHICH CAUSES HER TO FEEL SHAKY. CURRENT MEDICATIONS: 1. vitamin. 2. Lexapro 20 mg. OBJECTIVE: Temperature 97.1, pulse 111, respirations 18. BP is 109/65. She is alert and oriented x3. She does appear moderately uncomfortable with her contractions. The heart rate is 140 with moderate variability, positive accelerations, negative decelerations. Contractions are every 2-3 minutes. Her abdomen is gravid, cephalic presentation. Estimated weight 6-1/2 lb. Sterile vaginal exam: 5 cm dilated, 80% effaced, ballottable station, no show with the exam. ASSESSMENT: Intrauterine at 37-1/7 weeks. heart rate is category 1, labor. PLAN: Admit the patient to labor and delivery, routine laboratories, out of bed ad judi, clear liquid diet, saline lock for IV access, IV fluid bolus and then saline lock. She has been verbally consented for emergency surgery and blood products if they are necessary. I do anticipate continued labor progress and a normal spontaneous vaginal delivery.
--- NOTE | 2021-03-30 07:32 | DN ---
DELIVERY NOTE DATE OF DELIVERY: 03/30/2021 TIME OF : GENDER: APGARS: LACERATIONS: ANESTHESIA: ESTIMATED BLOOD LOSS: COUNTS: DESCRIPTION OF DELIVERY: Ana is a 25-year-old, 3, para 3-0-0-3, now is admitted to labor and delivery in active labor. Her labor progressed under her now huston. She coped with her labor physiologically. She reached complete dilation at 0110 and pushed to a normal spontaneous vaginal delivery of a live female in OA position with restitution to ROT position in hands-knees position at 0111. There was no nuchal cord. The shoulders delivered spontaneously and the corpus immediately followed. The was handed to the mother. Mouth and nares were bulb suctioned. The cord was clamped x2 once pulsations ceased and cut by the father of the baby under my direction. Spontaneous expulsion of an intact placenta with three vessel cord by Schultze mechanism at 0117. Uterine hemostasis achieved with IV Pitocin, rapid infusion and uterine fundal massage. Estimated blood loss: 300 mL. Perineum and vagina inspection, noted to be intact. female weighed 5 lb, 11 oz, 2570 gm. Apgars were 7 and 8. Mom is going bottle feed her daughter and the family have named her Amanda. At the close of delivery, lap counts and instrument counts were correct and verified.
[2021-03-30] MEDS: PRENATAL VITAMINS CHEWABLE TABLET PO SCH (09:00)
[2021-03-30] MEDS: ESCITALOPRAM OXALATE 10 MG TAB (LEXAPRO) PO SCH (09:00)
[2021-03-31] MEDS: LEVOTHYROXINE 50MCG TABLET (0.05MG) PO SCH (05:21)
[2021-03-31] MEDS: IBUPROFEN 800 MG TAB PO PRN (05:22)
[2021-03-31 06:22] VITALS: BP 109/68
[2021-03-31] MEDS: ESCITALOPRAM OXALATE 10 MG TAB (LEXAPRO) PO SCH (08:09)
[2021-03-31] MEDS: LORazepam 0.5 MG TAB PO PRN (08:09)
[2021-03-31] MEDS: PRENATAL VITAMINS CHEWABLE TABLET PO SCH (08:09)
[2021-03-31] MEDS ORDERED: IBUP80TA PO (09:17)
[2021-03-31] MEDS ORDERED: ACET-683 PO (09:17)
[2021-03-31] MEDS ORDERED: LEVO50TA5 PO (09:18)
[2021-03-31] MEDS ORDERED: ATIV1TAB10 PO (09:20)
[2021-03-31] MEDS ORDERED: LEXA1TAB2 PO (09:20)
== END 2021-03-31 11:50 | disposition home or self-care (01) | DRG 560 ==
LOC: M LDO 19:57 → M LDI 20:41 → M OBS 03-30 03:18
PROVIDERS: ADMIT Advanced Practice Midwife; ATTEND Advanced Practice Midwife
PROC: 10E0XZZ Delivery of Products of Conception, External Approach (ICD-10-PCS; principal; 2021-03-30)
DX: O99.344 Other mental disorders complicating childbirth (principal); F32.9 Major depressive disorder, single episode, unspecified; O99.334 Smoking (tobacco) complicating childbirth; F17.210 Nicotine dependence, cigarettes, uncomplicated; Z3A.37 37 weeks gestation of pregnancy; Z37.0 Single live birth

== ENCOUNTER → 2021-10-25 | Outpatient (REF) | payer BC ==
[~2021-10-25] MED LIST changes: +ATIV1TAB10 PO; -FLUO10CA16 PO; +FLUO10CA18 PO; +IBUP80TA PO; +LEXA1TAB2 PO
[2021-10-25 17:03] LABS: APPEARANCE, URINE HAZY (CLEAR); BACTERIA, URINE AUTO NEGATIVE (NEGATIVE); BILIRUBIN, URINE AUTO NEGATIVE (NEGATIVE); BLOOD, URINE BLOOD 1+ (NEGATIVE); COLOR, URINE YELLOW (YELLOW); GLUCOSE, URINE (UA) AUTO NEGATIVE (NEGATIVE); KETONE, URINE AUTO NEGATIVE (NEGATIVE); LEUKOCYTE ESTERASE, URINE AUTO 1+ (NEGATIVE); MUCUS, URINE SMALL (NEGATIVE); NITRITE, URINE AUTO NEGATIVE (NEGATIVE); PROTEIN, URINE AUTO NEGATIVE (NEGATIVE); RBC, URINE AUTO 1 /HPF (0-3); SPECIFIC GRAVITY URINE AUTO 1.026 (1.002-1.035); SQUAMOUS EPITHELIAL CELL UR AU 16 /HPF (0-6); UROBILINOGEN, URINE AUTO 0.2 mg/dL (0.0-2.0); WBC, URINE AUTO 6 /HPF (0-3)
[2021-10-25 18:32] LABS: GC DNA AMPLIFICATION NEGATIVE (NEGATIVE)
== END ==
LOC: M LAB REF 16:50
PROVIDERS: ATTEND Physician Assistant Medical
DX: R30.0 Dysuria (principal)

== ENCOUNTER → 2021-11-21 | Outpatient (REF) | payer BC ==
[2021-11-21 23:02] LABS: HCG, SERUM QUANTITATIVE < 1.0 MIU/ML
[2021-11-21 23:12] LABS: HCG, SERUM QUALITATIVE NEGATIVE (NEGATIVE)
== END ==
LOC: M LAB REF 22:21
PROVIDERS: ATTEND Physician Assistant
DX: Z32.02 Encounter for pregnancy test, result negative (principal)

== ENCOUNTER → 2021-12-02 | Outpatient (REF) | payer BC ==
[2021-12-02 19:27] LABS: APPEARANCE, URINE CLEAR (CLEAR); BACTERIA, URINE AUTO NEGATIVE (NEGATIVE); BILIRUBIN, URINE AUTO NEGATIVE (NEGATIVE); BLOOD, URINE BLOOD NEGATIVE (NEGATIVE); COLOR, URINE YELLOW (YELLOW); GLUCOSE, URINE (UA) AUTO NEGATIVE (NEGATIVE); KETONE, URINE AUTO NEGATIVE (NEGATIVE); LEUKOCYTE ESTERASE, URINE AUTO NEGATIVE (NEGATIVE); MUCUS, URINE SMALL (NEGATIVE); NITRITE, URINE AUTO NEGATIVE (NEGATIVE); PROTEIN, URINE AUTO NEGATIVE (NEGATIVE); RBC, URINE AUTO 0 /HPF (0-3); SQUAMOUS EPITHELIAL CELL UR AU 3 /HPF (0-6); WBC, URINE AUTO 0 /HPF (0-3)
[2021-12-02 20:05] LABS: HCG, SERUM QUALITATIVE NEGATIVE (NEGATIVE)
[2021-12-02 20:13] LABS: HCG, SERUM QUANTITATIVE < 1.0 MIU/ML
[2021-12-02 21:06] LABS: GC DNA AMPLIFICATION NEGATIVE (NEGATIVE)
== END ==
LOC: M LAB REF 18:34
PROVIDERS: ATTEND Physician Assistant Medical
DX: R30.0 Dysuria (principal)

== ENCOUNTER → 2022-01-24 | Outpatient (REF) | payer BC ==
[2022-01-24 15:48] LABS: HCG, SERUM QUANTITATIVE < 1.0 MIU/ML
[2022-01-24 15:50] LABS: HCG, SERUM QUALITATIVE NEGATIVE (NEGATIVE)
== END ==
LOC: M LAB REF 15:29
PROVIDERS: ATTEND Physician Assistant Medical
DX: Z32.00 Encounter for pregnancy test, result unknown (principal)

== ENCOUNTER → 2022-05-01 | Outpatient (CLI) | payer BC ==
[2022-05-01 17:49] LABS: HEMATOCRIT 40.4 % (36.0-47.0); HEMOGLOBIN 13.2 g/dl (12.0-15.5); MEAN CORPUSCULAR HEMOGLOBIN 27.4 pg (27.0-33.0); MEAN CORPUSCULAR HGB CONC 32.7 g/dl (32.0-36.5); MEAN CORPUSCULAR VOLUME 83.8 fl (80.0-96.0); PLATELET COUNT, AUTOMATED 202 10^3/uL (150-450); RED BLOOD COUNT 4.82 10^6/uL (4.00-5.40); WHITE BLOOD COUNT 5.6 10^3/uL (4.0-10.0)
[2022-05-01 18:58] LABS: GC DNA AMPLIFICATION NEGATIVE (NEGATIVE)
[2022-05-01 19:15] LABS: HEPATITIS C VIRUS ABY INDEX < 0.0 INDEX (<0.8); HIV 1&2 SCREEN CENTAUR NEGATIVE (NEGATIVE)
== END ==
LOC: M PLALAB 15:06
PROVIDERS: ATTEND Advanced Practice Midwife
DX: Z34.91 Encounter for supervision of normal pregnancy, unspecified, first trimester (principal); Z3A.00 Weeks of gestation of pregnancy not specified

== ENCOUNTER → 2022-05-01 | Outpatient (REF) | payer BC | LOC: M PLALAB 14:55 | PROVIDERS: ATTEND Advanced Practice Midwife | DX: Z34.91 Encounter for supervision of normal pregnancy, unspecified, first trimester (principal) ==

== ENCOUNTER → 2022-06-23 | Outpatient (REF) | payer BC | LOC: M LAB REF 17:28 | PROVIDERS: ATTEND Physician Assistant | DX: E03.9 Hypothyroidism, unspecified (principal) ==

== ENCOUNTER → 2022-07-01 | Outpatient (CLI) | payer BC | LOC: M WHC 13:10 | PROVIDERS: ATTEND Advanced Practice Midwife | DX: Z34.92 Encounter for supervision of normal pregnancy, unspecified, second trimester (principal) ==

== ENCOUNTER 2022-09-09 15:34 | Outpatient (CLI) | payer BC ==
[~2022-09-09] VITALS: Ht 167.6 cm; Wt 98.8 kg
[2022-09-09 15:55] VITALS: BP 101/51
[2022-09-09] MEDS ORDERED: HOME MED LIST COMPLETE! XX SCH (16:05)
== END 2022-09-09 16:30 | disposition home or self-care (01) ==
LOC: M LDO 15:34
PROVIDERS: ATTEND Advanced Practice Midwife
DX: O26.893 Other specified pregnancy related conditions, third trimester (principal); N89.8 Other specified noninflammatory disorders of vagina; Z3A.32 32 weeks gestation of pregnancy
CPT/HCPCS: 59025; G0463

== ENCOUNTER 2022-09-14 16:25 | Inpatient (IN) | payer BC ==
[~2022-09-14] VITALS: Ht 167.6 cm; Wt 97.7 kg
[2022-09-14] VITALS (8 sets, daily range): BP systolic 90–128; BP diastolic 45–69
[2022-09-14] MEDS ORDERED: LACTATED RINGER'S 1000 ML IV ONE (17:50)
[2022-09-14] MEDS ORDERED: PENICILLIN G POTASSIUM 5 MU IV 5 MU in D5W MINI-BAG PLUS 100 ML IV STA (18:29)
[2022-09-14] MEDS ORDERED: CARBOPROST TROMETHAMINE 250 MCG/ML AMP IM PRN (18:30)
[2022-09-14] MEDS ORDERED: TRANEXAMIC ACID INJection 1,000 MG in NS 100 ML IV PRN (18:30)
[2022-09-14] MEDS ORDERED: LIDOCAINE 1% MDV 20ML VIAL INFIL PRN (18:30)
[2022-09-14] MEDS ORDERED: DOCUSATE SODIUM 100MG CAPSULE PO PRN (18:30)
[2022-09-14] MEDS ORDERED: NIFEdipine 10 MG CAP PO ONE ×2 (18:30→20:00)
[2022-09-14] MEDS ORDERED: OXYTOCIN INJ 10UNITS/ML 1ML VIAL IM PRN (18:30)
[2022-09-14] MEDS ORDERED: METHYLERGONOVINE MALEATE 0.2MG/ML 1ML VIAL IM PRN (18:30)
[2022-09-14] MEDS ORDERED: OXYTOCIN DRIP 30 UNITS in IV 1 EA IV PRN ×4 (18:30)
[2022-09-14] MEDS ORDERED: ONDANSETRON 4MG 2ML VIAL IV PRN (18:30)
[2022-09-14] MEDS: LR 1,000 ML IV SCH (18:51)
[2022-09-14] MEDS: BETAMETHASONE SOLUSPAN 6MG/ML 5ML VIAL IM SCH (18:56)
[2022-09-14 19:17] LABS: APPEARANCE, URINE HAZY (CLEAR); BACTERIA, URINE AUTO NEGATIVE (NEGATIVE); BILIRUBIN, URINE AUTO NEGATIVE (NEGATIVE); BLOOD, URINE BLOOD NEGATIVE (NEGATIVE); COLOR, URINE YELLOW (YELLOW); GLUCOSE, URINE (UA) AUTO NEGATIVE (NEGATIVE); KETONE, URINE AUTO 2+ mg/dL (NEGATIVE); LEUKOCYTE ESTERASE, URINE AUTO 2+ (NEGATIVE); MUCUS, URINE SMALL (NEGATIVE); NITRITE, URINE AUTO NEGATIVE (NEGATIVE); PROTEIN, URINE AUTO NEGATIVE (NEGATIVE); RBC, URINE AUTO 1 /HPF (0-3); SPECIFIC GRAVITY URINE AUTO 1.014 (1.002-1.035); SQUAMOUS EPITHELIAL CELL UR AU 3 /HPF (0-6); WBC, URINE AUTO 3 /HPF (0-3)
[2022-09-14 19:21] LABS: HEMATOCRIT 33.7 % (36.0-47.0); HEMOGLOBIN 10.5 g/dl (12.0-15.5); MEAN CORPUSCULAR HEMOGLOBIN 25.4 pg (27.0-33.0); MEAN CORPUSCULAR HGB CONC 31.2 g/dl (32.0-36.5); MEAN CORPUSCULAR VOLUME 81.6 fl (80.0-96.0); PLATELET COUNT, AUTOMATED 186 10^3/uL (150-450); RED BLOOD COUNT 4.13 10^6/uL (4.00-5.40); WHITE BLOOD COUNT 5.8 10^3/uL (4.0-10.0)
[2022-09-14] MEDS: PEN G POT 3,000,000 UNIT/50 ML 3,000,000 UNIT in IV 1 EA IV SCH (23:09)
[2022-09-15] VITALS (13 sets, daily range): BP systolic 79–125; BP diastolic 39–75
[2022-09-15] MEDS: PEN G POT 3,000,000 UNIT/50 ML 3,000,000 UNIT in IV 1 EA IV SCH ×2 (02:53→07:25)
[2022-09-15] MEDS: LR 1,000 ML IV SCH ×3 (02:53→18:28)
[2022-09-15] MEDS: ACETAMINOPHEN 500 MG TAB PO PRN (06:06)
[2022-09-15] MEDS ORDERED: CALCIUM CARBONATE 500 MG CHEW U/D PO PRN (11:30)
[2022-09-15] MEDS: BETAMETHASONE SOLUSPAN 6MG/ML 5ML VIAL IM SCH (18:29)
[2022-09-16 00:24] VITALS: BP 108/66
[2022-09-16] MEDS: LR 1,000 ML IV SCH (01:43)
[2022-09-16 03:25] VITALS: BP 111/62
[2022-09-16 05:17] VITALS: BP 104/62
[2022-09-16 06:40] VITALS: BP 118/70
[2022-09-16] MEDS: ACETAMINOPHEN 500 MG TAB PO PRN (07:34)
== END 2022-09-16 07:55 | disposition home or self-care (01) | DRG 565 ==
LOC: M LDO 16:25 → M LDI 18:27
PROVIDERS: ADMIT Advanced Practice Midwife; ATTEND Advanced Practice Midwife
DX: O47.03 False labor before 37 completed weeks of gestation, third trimester (principal); E55.9 Vitamin D deficiency, unspecified; F32.A Depression, unspecified; F41.9 Anxiety disorder, unspecified; O99.333 Smoking (tobacco) complicating pregnancy, third trimester; F17.290 Nicotine dependence, other tobacco product, uncomplicated; O99.283 Endocrine, nutritional and metabolic diseases complicating pregnancy, third trimester; E03.9 Hypothyroidism, unspecified; O99.343 Other mental disorders complicating pregnancy, third trimester; Z3A.33 33 weeks gestation of pregnancy

== ENCOUNTER 2023-01-31 00:24 | Emergency (ER) | payer BC ==
[~2023-01-31] VITALS: Ht 165.1 cm; Wt 96.2 kg
[~2023-01-31 00:24] MED LIST changes: +DICY-61 PO; -DICY10CA13 PO
[2023-01-31 00:25] VITALS: BP 121/69; TEMP 97.7; O2SAT 97
== END 2023-01-31 04:11 | disposition left against medical advice (07) ==
LOC: M ED 00:24
DX: Z53.21 Procedure and treatment not carried out due to patient leaving prior to being seen by health care provider (principal)

== ENCOUNTER → 2023-01-31 | Outpatient (REF) | payer BC ==
[2023-01-31 18:47] LABS: APPEARANCE, URINE HAZY (CLEAR); BACTERIA, URINE AUTO 1+ (NEGATIVE); BILIRUBIN, URINE AUTO NEGATIVE (NEGATIVE); BLOOD, URINE BLOOD 2+ (NEGATIVE); COLOR, URINE YELLOW (YELLOW); GLUCOSE, URINE (UA) AUTO NEGATIVE (NEGATIVE); KETONE, URINE AUTO NEGATIVE (NEGATIVE); LEUKOCYTE ESTERASE, URINE AUTO 2+ (NEGATIVE); MUCUS, URINE MODERATE (NEGATIVE); NITRITE, URINE AUTO NEGATIVE (NEGATIVE); PROTEIN, URINE AUTO 1+ mg/dL (NEGATIVE); RBC, URINE AUTO 13 /HPF (0-3); SPECIFIC GRAVITY URINE AUTO 1.024 (1.002-1.035); SQUAMOUS EPITHELIAL CELL UR AU 2 /HPF (0-6); UROBILINOGEN, URINE AUTO 0.2 mg/dL (0.0-2.0); WBC, URINE AUTO 84 /HPF (0-3)
== END ==
LOC: M LAB REF 17:53
PROVIDERS: ATTEND Physician Assistant Medical
DX: N39.0 Urinary tract infection, site not specified (principal)

== ENCOUNTER → 2023-03-04 | Outpatient (REF) | payer BC ==
[2023-03-05 12:02] LABS: URINE PREG TEST POSITIVE (NEGATIVE)
[2023-03-05 12:24] LABS: THYROID STIMULATING HORMONE 2.326 uIU/ML (0.55-4.78)
[2023-03-05 13:30] LABS: HCG, SERUM QUANTITATIVE 13701.8 MIU/ML (<4.2)
== END ==
LOC: M LAB REF 11:04
PROVIDERS: ATTEND Nurse Practitioner Family
DX: Z79.899 Other long term (current) drug therapy (principal); E03.9 Hypothyroidism, unspecified; Z32.01 Encounter for pregnancy test, result positive

== ENCOUNTER → 2023-07-05 | Outpatient (REF) | payer BC ==
[2023-07-05 17:48] LABS: HEMATOCRIT 38.6 % (36.0-47.0); HEMOGLOBIN 11.4 g/dl (12.0-15.5); MEAN CORPUSCULAR HEMOGLOBIN 23.1 pg (27.0-33.0); MEAN CORPUSCULAR HGB CONC 29.5 g/dl (32.0-36.5); MEAN CORPUSCULAR VOLUME 78.3 fl (80.0-96.0); PLATELET COUNT, AUTOMATED 238 10^3/uL (150-450); RED BLOOD COUNT 4.93 10^6/uL (4.00-5.40); WHITE BLOOD COUNT 4.6 10^3/uL (4.0-10.0)
[2023-07-05 17:50] LABS: ALBUMIN 3.4 G/DL (3.2-5.2); ALKALINE PHOSPHATASE 66 U/L (46-116); ALT/SGPT 21 U/L (7.0-40); AST/SGOT 15 U/L (<34); BILIRUBIN,TOTAL 0.3 MG/DL (0.3-1.2); BLOOD UREA NITROGEN 12 MG/DL (9-23); CALCIUM LEVEL 8.8 MG/DL (8.5-10.1); CARBON DIOXIDE LEVEL 31 MMOL/L (20-31); CHLORIDE LEVEL 105 MMOL/L (98-107); CHOLESTEROL LEVEL 148 MG/DL (<200); CHOLESTEROL RISK RATIO 2.42 (<5); CREATININE FOR GFR 0.76 MG/DL (0.55-1.30); GLOMERULAR FILTRATION RATE > 60.0 (>60); GLUCOSE, FASTING 89 MG/DL (60-100); POTASSIUM SERUM 3.8 MMOL/L (3.5-5.1); SODIUM LEVEL 140 MMOL/L (136-145); THYROID STIMULATING HORMONE 3.652 uIU/ML (0.55-4.78); TOTAL PROTEIN 6.4 G/DL (5.7-8.2); TRIGLYCERIDES LEVEL 70 MG/DL (<150)
== END ==
LOC: M LAB REF 16:24
PROVIDERS: ATTEND Nurse Practitioner Family
DX: E03.9 Hypothyroidism, unspecified (principal); E55.9 Vitamin D deficiency, unspecified; Z79.899 Other long term (current) drug therapy

== ENCOUNTER → 2023-09-08 | Outpatient (CLI) | payer BC, MEDICAID | LOC: M PLALAB 09:43 | PROVIDERS: ATTEND Advanced Practice Midwife | DX: O20.9 Hemorrhage in early pregnancy, unspecified (principal) ==

== ENCOUNTER → 2023-09-10 | Outpatient (CLI) | payer MEDICAID | LOC: M PLALAB 11:30 | PROVIDERS: ATTEND Advanced Practice Midwife | DX: O20.9 Hemorrhage in early pregnancy, unspecified (principal); Z3A.00 Weeks of gestation of pregnancy not specified ==

== ENCOUNTER → 2023-09-24 | Outpatient (CLI) | payer MEDICAID | LOC: M PLALAB 09:58 | PROVIDERS: ATTEND Advanced Practice Midwife | DX: O03.9 Complete or unspecified spontaneous abortion without complication (principal) ==

== ENCOUNTER → 2024-01-03 | Outpatient (CLI) | payer OTHER ==
[~2024-01-03] MED LIST changes: +FLUO-290 PO; -FLUO10CA18 PO; +ONDA-282 PO; -ONDA4TAB6 PO
[2024-01-03 13:22] LABS: HEMATOCRIT 41.7 % (36.0-47.0); HEMOGLOBIN 13.1 g/dl (12.0-15.5); MEAN CORPUSCULAR HEMOGLOBIN 24.3 pg (27.0-33.0); MEAN CORPUSCULAR HGB CONC 31.4 g/dl (32.0-36.5); MEAN CORPUSCULAR VOLUME 77.5 fl (80.0-96.0); PLATELET COUNT, AUTOMATED 214 10^3/uL (150-450); RED BLOOD COUNT 5.38 10^6/uL (4.00-5.40); WHITE BLOOD COUNT 5.5 10^3/uL (4.0-10.0)
[2024-01-03 14:27] LABS: HIV 1&2 SCREEN NEGATIVE (NEGATIVE)
[2024-01-03 14:34] LABS: HEPATITIS C VIRUS ABY INDEX 0.03 INDEX (<0.8)
[2024-01-03 15:37] LABS: GC DNA AMPLIFICATION NEGATIVE (NEGATIVE)
== END ==
LOC: M PLALAB 11:13
PROVIDERS: ATTEND Advanced Practice Midwife
DX: Z34.91 Encounter for supervision of normal pregnancy, unspecified, first trimester (principal)

== ENCOUNTER → 2024-01-25 | Outpatient (CLI) | payer OTHER | LOC: M WHC 11:22 | PROVIDERS: ATTEND Advanced Practice Midwife | DX: Z34.92 Encounter for supervision of normal pregnancy, unspecified, second trimester (principal) ==

== ENCOUNTER → 2024-03-06 | Outpatient (CLI) | payer OTHER | LOC: M RAD 10:38 | PROVIDERS: ATTEND Advanced Practice Midwife | DX: Z34.82 Encounter for supervision of other normal pregnancy, second trimester (principal) ==

== ENCOUNTER → 2024-04-24 | Outpatient (CLI) | payer OTHER ==
[2024-04-24 13:54] LABS: GLUCOSE CHALLENGE TEST 1 HOUR 111 MG/DL (LESS THAN 140)
[2024-04-24 14:00] LABS: HEMATOCRIT 38.7 % (36.0-47.0); HEMOGLOBIN 12.3 g/dl (12.0-15.5); MEAN CORPUSCULAR HEMOGLOBIN 27.5 pg (27.0-33.0); MEAN CORPUSCULAR HGB CONC 31.8 g/dl (32.0-36.5); MEAN CORPUSCULAR VOLUME 86.4 fl (80.0-96.0); PLATELET COUNT, AUTOMATED 175 10^3/uL (150-450); RED BLOOD COUNT 4.48 10^6/uL (4.00-5.40); WHITE BLOOD COUNT 7.5 10^3/uL (4.0-10.0)
[2024-04-24 14:25] LABS: HIV 1&2 SCREEN NEGATIVE (NEGATIVE)
[2024-04-24 14:33] LABS: HEPATITIS C VIRUS ABY INDEX < 0.02 INDEX (<0.8)
[2024-04-24 15:18] LABS: GC DNA AMPLIFICATION NEGATIVE (NEGATIVE)
== END ==
LOC: M PLALAB 09:49
PROVIDERS: ATTEND Advanced Practice Midwife
DX: Z34.82 Encounter for supervision of other normal pregnancy, second trimester (principal)

== ENCOUNTER → 2024-05-15 | Outpatient (REF) | payer OTHER | LOC: M SFHCWAGY 14:47 | PROVIDERS: ATTEND Advanced Practice Midwife | DX: Z34.93 Encounter for supervision of normal pregnancy, unspecified, third trimester (principal); Z36.85 Encounter for antenatal screening for Streptococcus B ==

== ENCOUNTER 2024-05-19 12:14 | Outpatient (CLI) | payer OTHER ==
[~2024-05-19] VITALS: Ht 167.6 cm; Wt 102.6 kg
[2024-05-19 12:30] VITALS: BP 113/58
== END 2024-05-19 13:06 | disposition home or self-care (01) ==
LOC: M LDO 12:14
PROVIDERS: ATTEND Obstetrics & Gynecology
DX: O26.893 Other specified pregnancy related conditions, third trimester (principal); O09.213 Supervision of pregnancy with history of pre-term labor, third trimester; O99.343 Other mental disorders complicating pregnancy, third trimester; O99.333 Smoking (tobacco) complicating pregnancy, third trimester; R25.2 Cramp and spasm; R10.2 Pelvic and perineal pain; F41.9 Anxiety disorder, unspecified; F17.290 Nicotine dependence, other tobacco product, uncomplicated; Z3A.30 30 weeks gestation of pregnancy; Z88.8 Allergy status to other drugs, medicaments and biological substances
CPT/HCPCS: 59025; 76815; G0463

== ENCOUNTER 2024-06-12 16:20 | Inpatient (IN) | payer OTHER ==
[~2024-06-12] VITALS: Ht 167.6 cm; Wt 103.1 kg
[2024-06-12 16:40] VITALS: BP 129/58
[2024-06-12] MEDS ORDERED: HOME MED LIST COMPLETE! XX SCH (16:45)
[2024-06-12] MEDS: BETAMETHASONE SOLUSPAN 6MG/ML 5ML VIAL IM SCH (17:23)
[2024-06-12] MEDS ORDERED: LIDOCAINE 1% MDV 20ML VIAL INFIL PRN (18:00)
[2024-06-12] MEDS ORDERED: METHYLERGONOVINE MALEATE 0.2MG/ML 1ML VIAL IM PRN (18:00)
[2024-06-12] MEDS ORDERED: OXYTOCIN INJ 10UNITS/ML 1ML VIAL IM PRN (18:00)
[2024-06-12] MEDS ORDERED: OXYTOCIN DRIP 30 UNITS in IV 1 EA IV PRN (18:00)
[2024-06-12] MEDS ORDERED: TRANEXAMIC ACID INJection 1,000 MG in NS 100 ML IV PRN (18:00)
[2024-06-12 18:18] VITALS: BP 111/59
[2024-06-12 18:49] LABS: HEMATOCRIT 38.4 % (36.0-47.0); HEMOGLOBIN 12.3 g/dl (12.0-15.5); MEAN CORPUSCULAR HEMOGLOBIN 26.5 pg (27.0-33.0); MEAN CORPUSCULAR VOLUME 82.8 fl (80.0-96.0); PLATELET COUNT, AUTOMATED 156 10^3/uL (150-450); RED BLOOD COUNT 4.64 10^6/uL (4.00-5.40); WHITE BLOOD COUNT 8.5 10^3/uL (4.0-10.0)
[2024-06-12 20:03] VITALS: BP 106/54
[2024-06-12 23:10] VITALS: BP 87/49
[2024-06-13 00:43] VITALS: BP 99/54
[2024-06-13 03:01] VITALS: BP 115/67
[2024-06-13 04:50] VITALS: BP 98/54
[2024-06-13] MEDS: BETAMETHASONE SOLUSPAN 6MG/ML 5ML VIAL IM SCH (05:31)
[2024-06-13] MEDS ORDERED: LORazepam 2 MG TAB PO ONE (05:40)
[2024-06-13] MEDS: LORazepam 1 MG TAB PO ONE (06:01)
[2024-06-13 06:05] VITALS: BP 100/58
[2024-06-13] MEDS: ESCITALOPRAM OXALATE 10 MG TAB (LEXAPRO) PO SCH (06:06)
[2024-06-13] MEDS: LEVOTHYROXINE 50MCG TABLET (0.05MG) PO SCH (06:06)
[2024-06-13 06:42] LABS: HEPATITIS C VIRUS ABY INDEX < 0.02 INDEX (<0.8)
== END 2024-06-13 16:50 | disposition home or self-care (01) | DRG 565 ==
LOC: M LDO 16:20 → M LDI 20:12
PROVIDERS: ADMIT Advanced Practice Midwife; ATTEND Advanced Practice Midwife
DX: O47.03 False labor before 37 completed weeks of gestation, third trimester (principal); Z3A.34 34 weeks gestation of pregnancy

== ENCOUNTER 2024-06-21 14:35 | Outpatient (CLI) | payer OTHER, MEDICAID ==
[~2024-06-21] VITALS: Ht 167.6 cm; Wt 102.1 kg
[2024-06-21 14:45] VITALS: BP 118/66
[2024-06-21] MEDS ORDERED: HOME MED LIST COMPLETE! XX SCH (14:55)
[2024-06-21 16:16] LABS: HEMATOCRIT 37.6 % (36.0-47.0); HEMOGLOBIN 12.1 g/dl (12.0-15.5); MEAN CORPUSCULAR HEMOGLOBIN 26.4 pg (27.0-33.0); MEAN CORPUSCULAR HGB CONC 32.2 g/dl (32.0-36.5); MEAN CORPUSCULAR VOLUME 81.9 fl (80.0-96.0); PLATELET COUNT, AUTOMATED 166 10^3/uL (150-450); RED BLOOD COUNT 4.59 10^6/uL (4.00-5.40); WHITE BLOOD COUNT 7.6 10^3/uL (4.0-10.0)
[2024-06-21 17:25] LABS: HEPATITIS C VIRUS ABY INDEX 0.17 INDEX (<0.8)
[2024-06-21 18:10] VITALS: BP 122/63
[2024-06-21 19:34] VITALS: BP 118/63
[2024-06-21 21:38] VITALS: BP 110/71
== END 2024-06-21 21:37 | disposition home or self-care (01) ==
LOC: M LDO 14:35
PROVIDERS: ATTEND Advanced Practice Midwife
DX: O47.03 False labor before 37 completed weeks of gestation, third trimester (principal); O99.343 Other mental disorders complicating pregnancy, third trimester; O99.283 Endocrine, nutritional and metabolic diseases complicating pregnancy, third trimester; O99.333 Smoking (tobacco) complicating pregnancy, third trimester; O09.293 Supervision of pregnancy with other poor reproductive or obstetric history, third trimester; O09.213 Supervision of pregnancy with history of pre-term labor, third trimester; Z88.8 Allergy status to other drugs, medicaments and biological substances; F41.9 Anxiety disorder, unspecified; E03.9 Hypothyroidism, unspecified; F17.290 Nicotine dependence, other tobacco product, uncomplicated; Z3A.35 35 weeks gestation of pregnancy
CPT/HCPCS: 59025; 76816; 76819; 76820; 85027; 86780; 86803; 86850; 86900; 86901; G0463

== ENCOUNTER 2024-06-24 02:28 | Outpatient (CLI) | payer OTHER, MEDICAID ==
[~2024-06-24] VITALS: Ht 167.6 cm; Wt 103.1 kg
[2024-06-24 02:47] VITALS: BP 109/68
[2024-06-24 03:57] VITALS: BP 120/55
== END 2024-06-24 04:00 | disposition home or self-care (01) ==
LOC: M LDO 02:28
PROVIDERS: ATTEND Obstetrics & Gynecology
DX: O47.03 False labor before 37 completed weeks of gestation, third trimester (principal); O99.283 Endocrine, nutritional and metabolic diseases complicating pregnancy, third trimester; O99.333 Smoking (tobacco) complicating pregnancy, third trimester; O09.213 Supervision of pregnancy with history of pre-term labor, third trimester; O09.293 Supervision of pregnancy with other poor reproductive or obstetric history, third trimester; O34.32 Maternal care for cervical incompetence, second trimester; F17.290 Nicotine dependence, other tobacco product, uncomplicated; E03.9 Hypothyroidism, unspecified; Z3A.35 35 weeks gestation of pregnancy; Z79.890 Hormone replacement therapy; Z79.899 Other long term (current) drug therapy
CPT/HCPCS: 59025; G0463

== ENCOUNTER 2024-06-29 11:33 | Inpatient (IN) | payer OTHER, MEDICAID ==
[~2024-06-29] VITALS: Ht 167.6 cm; Wt 104.0 kg
[2024-06-29] VITALS (9 sets, daily range): BP systolic 93–130; BP diastolic 51–106; O2SAT 97
[2024-06-29] MEDS ORDERED: HOME MED LIST COMPLETE! XX SCH (12:10)
[2024-06-29] MEDS: LACTATED RINGER'S 1000 ML IV STA (12:36)
[2024-06-29] MEDS ORDERED: LIDOCAINE 1% MDV 20ML VIAL INFIL PRN (12:40)
[2024-06-29] MEDS ORDERED: CARBOPROST TROMETHAMINE 250 MCG/ML AMP IM PRN (12:40)
[2024-06-29] MEDS ORDERED: METHYLERGONOVINE MALEATE 0.2MG/ML 1ML VIAL IM PRN (12:40)
[2024-06-29] MEDS ORDERED: TRANEXAMIC ACID INJection 1,000 MG in NS 100 ML IV PRN (12:40)
[2024-06-29 13:31] LABS: HEMATOCRIT 37.8 % (36.0-47.0); HEMOGLOBIN 12.1 g/dl (12.0-15.5); MEAN CORPUSCULAR HEMOGLOBIN 26.4 pg (27.0-33.0); MEAN CORPUSCULAR VOLUME 82.4 fl (80.0-96.0); PLATELET COUNT, AUTOMATED 163 10^3/uL (150-450); RED BLOOD COUNT 4.59 10^6/uL (4.00-5.40); WHITE BLOOD COUNT 6.5 10^3/uL (4.0-10.0)
[2024-06-29 14:34] LABS: HEPATITIS C VIRUS ABY INDEX < 0.02 INDEX (<0.8)
[2024-06-29 16:30] LABS: CORD GAS ABE V -1.1; CORD GAS HCO3 V 21.4 MMOL/L; CORD GAS O2 SAT V 98.2 %; CORD GAS PCO2 V 29.8 mmHg; CORD GAS PH V 7.474 UNITS; CORD GAS PO2 V 71.7 mmHg; CORD GAS SBC V 23.6 MMOL/L; CORD GAS TCO2 V 22.3 MMOL/L
[2024-06-29 16:31] LABS: CORD GAS ABE A -2.9; CORD GAS O2 SAT A 57.2 %; CORD GAS PCO2 A 44.2 mmHg; CORD GAS PH A 7.334 UNITS; CORD GAS PO2 A 23.3 mmHg; CORD GAS SBC A 21.1 MMOL/L; CORD GAS TCO2 A 24.3 MMOL/L
[2024-06-29] MEDS: OXYTOCIN DRIP 30 UNITS in IV 1 EA IV PRN (16:34)
[2024-06-29] MEDS ORDERED: ACETAMINOPHEN 325 MG TAB PO PRN (16:35)
[2024-06-29] MEDS ORDERED: ANUSOL HC CREAM 30GM TOP PRN (16:35)
[2024-06-29] MEDS ORDERED: ONDANSETRON 4MG 2ML VIAL IV PRN (16:35)
[2024-06-29] MEDS: LR 1,000 ML IV SCH (16:35)
[2024-06-29] MEDS ORDERED: CALCIUM CARBONATE 500 MG CHEW U/D PO PRN (16:35)
[2024-06-29] MEDS ORDERED: DOCUSATE SODIUM 100MG CAPSULE PO PRN (16:35)
[2024-06-29] MEDS ORDERED: DIBUCAINE 1% OINTMENT 30GM TOP PRN (16:35)
[2024-06-29] MEDS: IBUPROFEN 800 MG TAB PO PRN (16:53)
[2024-06-29] MEDS: OXYTOCIN DRIP 30 UNITS in IV 1 EA IV SCH (17:00)
[2024-06-30] MEDS: ACETAMINOPHEN 500 MG TAB PO PRN
[2024-06-30] MEDS: IBUPROFEN 600MG TAB PO PRN (04:50)
[2024-06-30] MEDS: LEVOTHYROXINE 50MCG TABLET (0.05MG) PO SCH (05:53)
[2024-06-30 05:59] VITALS: BP 106/57; O2SAT 98
[2024-06-30] MEDS ORDERED: PERCOCET 5MG/325MG TAB PO PRN (08:35)
[2024-06-30] MEDS: PRENATAL VITAMINS CHEWABLE TABLET PO SCH (11:37)
[2024-06-30] MEDS: ESCITALOPRAM OXALATE 10 MG TAB (LEXAPRO) PO SCH (11:37)
[2024-06-30] MEDS: FERROUS SULFATE 325MG TAB PO SCH (11:37)
[2024-06-30 18:00] VITALS: BP 118/56; O2SAT 97
[2024-07-01 06:45] VITALS: BP 95/55; O2SAT 99
[2024-07-01] MEDS: RHOGAM 300MCG (1500IU) INJ IM SCH (07:29)
[2024-07-01] MEDS: MEASLES,MUMPS,RUBELLA VACCINE INJ (MMR-II) SC.IMMUN ONE (07:29)
[2024-07-01] MEDS ORDERED: IBUP-1022 PO (12:17)
[2024-07-01] MEDS ORDERED: ACET-683 PO (12:17)
[2024-07-01] MEDS ORDERED: COLA100C5 PO (12:17)
== END 2024-07-01 13:25 | disposition home or self-care (01) | DRG 560 ==
LOC: M LDO 11:33 → M LDI 12:37 → M OBS 17:40
PROVIDERS: ADMIT Obstetrics & Gynecology; ATTEND Obstetrics & Gynecology
PROC: 10E0XZZ Delivery of Products of Conception, External Approach (ICD-10-PCS; principal; 2024-06-29)
DX: O60.14X0 Preterm labor third trimester with preterm delivery third trimester, not applicable or unspecified (principal); Z79.890 Hormone replacement therapy; Z3A.36 36 weeks gestation of pregnancy; Z37.0 Single live birth; Z79.899 Other long term (current) drug therapy

== ENCOUNTER → 2024-09-12 | Outpatient (REF) | payer OTHER, MEDICAID | LOC: M LAB REF 16:09 | PROVIDERS: ATTEND Nurse Practitioner Family | DX: J02.9 Acute pharyngitis, unspecified (principal) ==

== ENCOUNTER → 2024-09-15 | Outpatient (CLI) | payer OTHER, MEDICAID ==
[2024-09-15 14:30] LABS: BASO # 0.1 10^3/uL (0.0-0.2); BASO % 1.2 % (0.0-1.0); EOS # 0.3 10^3/uL (0.0-0.5); EOS % 5.8 % (0.0-3.0); HEMATOCRIT 43.4 % (36.0-47.0); HEMOGLOBIN 13.8 g/dl (12.0-15.5); LYMPH # 1.7 10^3/uL (1.5-5.0); LYMPH % 40.2 % (24.0-44.0); MEAN CORPUSCULAR HGB CONC 31.8 g/dl (32.0-36.5); MEAN CORPUSCULAR VOLUME 84.9 fl (80.0-96.0); MONO # 0.3 10^3/uL (0.0-0.8); NEUTROPHILS % 46.6 % (36.0-66.0); PLATELET COUNT, AUTOMATED 190 10^3/uL (150-450); RED BLOOD COUNT 5.11 10^6/uL (4.00-5.40); WHITE BLOOD COUNT 4.3 10^3/uL (4.0-10.0)
[2024-09-15 14:41] LABS: FERRITIN 21.2 NG/ML (7.3-270.7); THYROID STIMULATING HORMONE 0.17 uIU/ML (0.55-4.78); TOTAL 25(OH) VITAMIN D 22.6 NG/ML (20.0-100.0)
== END ==
LOC: M LAB 13:25
PROVIDERS: ATTEND Nurse Practitioner Family
DX: E03.9 Hypothyroidism, unspecified (principal); E56.9 Vitamin deficiency, unspecified; L65.9 Nonscarring hair loss, unspecified

== ENCOUNTER → 2024-10-30 | Outpatient (REF) | payer OTHER ==
[2024-10-30 15:49] LABS: APPEARANCE, URINE HAZY (CLEAR); BACTERIA, URINE AUTO NEGATIVE (NEGATIVE); BILIRUBIN, URINE AUTO NEGATIVE (NEGATIVE); BLOOD, URINE BLOOD NEGATIVE (NEGATIVE); COLOR, URINE YELLOW (YELLOW); GLUCOSE, URINE (UA) AUTO NEGATIVE (NEGATIVE); KETONE, URINE AUTO NEGATIVE (NEGATIVE); LEUKOCYTE ESTERASE, URINE AUTO NEGATIVE (NEGATIVE); MUCUS, URINE SMALL (NEGATIVE); NITRITE, URINE AUTO NEGATIVE (NEGATIVE); PROTEIN, URINE AUTO NEGATIVE (NEGATIVE); RBC, URINE AUTO 0 /HPF (0-3); SPECIFIC GRAVITY URINE AUTO 1.019 (1.002-1.035); SQUAMOUS EPITHELIAL CELL UR AU 5 /HPF (0-6); UROBILINOGEN, URINE AUTO 0.2 mg/dL (0.0-2.0); WBC, URINE AUTO 1 /HPF (0-3)
== END ==
LOC: M LAB REF 14:43
PROVIDERS: ATTEND Physician Assistant Medical
DX: N39.0 Urinary tract infection, site not specified (principal)

== ENCOUNTER 2025-02-19 07:19 | Emergency (ER) | payer OTHER ==
[~2025-02-19] VITALS: Ht 167.6 cm; Wt 103.7 kg
[2025-02-19] MEDS ORDERED: LORA2TAB14 (07:28)
[2025-02-19] MEDS ORDERED: LEVO25TA5 (07:28)
[2025-02-19 08:16] LABS: KETONE, URINE AUTO RFX NEGATIVE (NEGATIVE); MUCUS, URINE RFX SMALL (NEGATIVE); NITRITE, URINE AUTO RFX NEGATIVE (NEGATIVE); RBC, URINE AUTO RFX 1 /HPF (0-3); SQUAM EPITHELIAL CELL UR AURFX 9 /HPF (0-6); WBC, URINE AUTO RFX 4 /HPF (0-3)
[2025-02-19 08:17] LABS: LEUKOCYTE ESTERASE UR AUTO RFX TRACE (NEGATIVE)
[2025-02-19 09:25] LABS: C REACTIVE PROTEIN QUANTITATIV 0.95 MG/DL (<1.0)
[2025-02-19 09:26] LABS: ALT/SGPT 20 U/L (7.0-40); AST/SGOT 20 U/L (<34); CALCIUM LEVEL 8.6 MG/DL (8.5-10.1); CARBON DIOXIDE LEVEL 28 MMOL/L (20-31); CHLORIDE LEVEL 105 MMOL/L (98-107); CREATININE FOR GFR 0.83 MG/DL (0.55-1.30); GLOMERULAR FILTRATION RATE > 90.0 (>60); POTASSIUM SERUM 3.9 MMOL/L (3.5-5.1); SODIUM LEVEL 142 MMOL/L (136-145)
[2025-02-19 09:27] LABS: BASO # 0.0 10^3/uL (0.0-0.2); BASO % 0.5 % (0.0-1.0); EOS # 0.1 10^3/uL (0.0-0.5); EOS % 2.2 % (0.0-3.0); LYMPH # 1.7 10^3/uL (1.5-5.0); LYMPH % 29.9 % (24.0-44.0); MONO # 0.4 10^3/uL (0.0-0.8); MONO % 7.3 % (2.0-8.0); NEUTROPHILS # 3.5 10^3/uL (1.5-8.5); NEUTROPHILS % 59.9 % (36.0-66.0); PLATELET COUNT, AUTOMATED 166 10^3/uL (150-450)
[2025-02-19 09:31] LABS: HCG, SERUM QUALITATIVE NEGATIVE (NEGATIVE)
[2025-02-19 09:38] LABS: ERYTHROCYTE SEDIMENTATION RATE 11 mm/hr (0-20)
[2025-02-19] MEDS ORDERED: ISOVUE-370 76% 100 ML VIAL As Ordered ONE (09:43)
[2025-02-19] MEDS ORDERED: COLA100C5 PO (10:59)
[2025-02-19 11:05] VITALS: BP 109/61; TEMP 97.6; O2SAT 97
[2025-02-19] MEDS: MAGNESIUM CITRATE 300 ML BTL PO ONE (11:08)
== END 2025-02-19 11:13 | disposition home or self-care (01) ==
LOC: M ED 07:19
DX: R10.9 Unspecified abdominal pain (principal); E03.9 Hypothyroidism, unspecified; Z88.8 Allergy status to other drugs, medicaments and biological substances; Z79.1 Long term (current) use of non-steroidal anti-inflammatories (NSAID); Z79.899 Other long term (current) drug therapy
CPT/HCPCS: 36415; 74177; 80048; 80076; 81001; 83605; 83690; 84703; 85025; 85652; 86140; 87086; 99284; Q9967

== ENCOUNTER 2025-02-25 14:01 | Emergency (ER) | payer OTHER ==
[~2025-02-25] VITALS: Ht 167.6 cm; Wt 104.7 kg
[~2025-02-25 14:01] MED LIST changes: +LEVO25TA5; +LORA2TAB14
[2025-02-25 17:35] LABS: BASO # 0.0 10^3/uL (0.0-0.2); BASO % 0.8 % (0.0-1.0); EOS # 0.1 10^3/uL (0.0-0.5); EOS % 2.5 % (0.0-3.0); LYMPH # 1.8 10^3/uL (1.5-5.0); LYMPH % 34.5 % (24.0-44.0); MONO # 0.4 10^3/uL (0.0-0.8); MONO % 7.2 % (2.0-8.0); NEUTROPHILS # 2.9 10^3/uL (1.5-8.5); NEUTROPHILS % 54.8 % (36.0-66.0); PLATELET COUNT, AUTOMATED 158 10^3/uL (150-450)
[2025-02-25 17:52] LABS: HCG, SERUM QUALITATIVE NEGATIVE (NEGATIVE)
[2025-02-25 17:53] LABS: ALT/SGPT 30 U/L (7.0-40); AST/SGOT 22 U/L (<34); CALCIUM LEVEL 8.6 MG/DL (8.5-10.1); CARBON DIOXIDE LEVEL 28 MMOL/L (20-31); CHLORIDE LEVEL 107 MMOL/L (98-107); CREATININE FOR GFR 0.95 MG/DL (0.55-1.30); GLOMERULAR FILTRATION RATE 84.2 (>60); POTASSIUM SERUM 4.5 MMOL/L (3.5-5.1); SODIUM LEVEL 144 MMOL/L (136-145)
[2025-02-25 17:59] LABS: INR 0.92
[2025-02-25] MEDS: FAMOTIDINE 20 MG/2 ML VIAL IVP ONE (18:08)
[2025-02-25] MEDS: NS (Normal Saline) 0.9% 1,000 ML IV ONE (18:10)
[2025-02-25] MEDS ORDERED: ISOVUE-370 76% 100 ML VIAL As Ordered ONE (19:56)
[2025-02-25 20:21] LABS: KETONE, URINE AUTO RFX NEGATIVE (NEGATIVE); MUCUS, URINE RFX SMALL (NEGATIVE); NITRITE, URINE AUTO RFX NEGATIVE (NEGATIVE); RBC, URINE AUTO RFX 1 /HPF (0-3); SQUAM EPITHELIAL CELL UR AURFX 3 /HPF (0-6); WBC, URINE AUTO RFX 2 /HPF (0-3)
[2025-02-25 20:23] LABS: LEUKOCYTE ESTERASE UR AUTO RFX TRACE (NEGATIVE)
[2025-02-25] MEDS: SUCRALFATE SUSP 1GM/10ML UD PO ONE (20:35)
[2025-02-25 21:38] VITALS: BP 110/57; TEMP 97.2; O2SAT 98
== END 2025-02-25 21:55 | disposition home or self-care (01) ==
LOC: M ED 14:01
DX: R10.9 Unspecified abdominal pain (principal); E03.9 Hypothyroidism, unspecified; F17.290 Nicotine dependence, other tobacco product, uncomplicated; Z88.8 Allergy status to other drugs, medicaments and biological substances; Z79.1 Long term (current) use of non-steroidal anti-inflammatories (NSAID); Z79.899 Other long term (current) drug therapy
CPT/HCPCS: 74177; 76856; 80047; 80048; 80076; 81001; 83605; 83690; 84703; 85025; 85610; 85730; 87086; 93005; 93041; 93976; 96361; 96374; 99285; J1308; Q9967

== ENCOUNTER → 2025-02-27 | Outpatient (REF) | payer OTHER ==
[2025-02-27 19:12] LABS: ALT/SGPT 26 U/L (7.0-40); AST/SGOT 23 U/L (<34); CALCIUM LEVEL 8.8 MG/DL (8.5-10.1); CARBON DIOXIDE LEVEL 26 MMOL/L (20-31); CHLORIDE LEVEL 106 MMOL/L (98-107); CHOLESTEROL LEVEL 159 MG/DL (<200); CHOLESTEROL RISK RATIO 2.49 (<5); CREATININE FOR GFR 0.72 MG/DL (0.55-1.30); GLOMERULAR FILTRATION RATE > 90.0 (>60); LDL CHOLESTEROL 82.8 MG/DL (<100); NON-HDL-C 95.2 MG/DL; POTASSIUM SERUM 4.6 MMOL/L (3.5-5.1); SODIUM LEVEL 140 MMOL/L (136-145); TRIGLYCERIDES LEVEL 62 MG/DL (<150)
[2025-02-27 19:14] LABS: FREE T4 0.90 NG/DL (0.89-1.76)
[2025-02-27 19:32] LABS: Trichomonas vaginalis (AMP) NOT DETECTED (NEGATIVE)
[2025-02-27 19:56] LABS: GC DNA AMPLIFICATION NEGATIVE (NEGATIVE)
== END ==
LOC: M LAB REF 17:22
PROVIDERS: ATTEND Physician Assistant
DX: E03.9 Hypothyroidism, unspecified (principal); E66.812 Obesity, class 2; Z13.1 Encounter for screening for diabetes mellitus; Z13.220 Encounter for screening for lipoid disorders

== ENCOUNTER → 2025-04-23 | Outpatient (REF) | payer OTHER ==
[~2025-04-23] MED LIST changes: -IBUP-1022 PO; +IBUP600T42 PO
== END ==
LOC: M LAB REF 16:19
PROVIDERS: ATTEND Nurse Practitioner Family
DX: E03.9 Hypothyroidism, unspecified (principal)

== ENCOUNTER → 2025-07-13 | Outpatient (CLI) | payer OTHER ==
[2025-07-13 15:16] LABS: BASO # 0.0 10^3/uL (0.0-0.2); BASO % 0.8 % (0.0-1.0); EOS # 0.1 10^3/uL (0.0-0.5); EOS % 2.4 % (0.0-3.0); LYMPH # 1.6 10^3/uL (1.5-5.0); LYMPH % 33.5 % (24.0-44.0); MONO # 0.4 10^3/uL (0.0-0.8); MONO % 7.3 % (2.0-8.0); NEUTROPHILS # 2.7 10^3/uL (1.5-8.5); NEUTROPHILS % 55.6 % (36.0-66.0); PLATELET COUNT, AUTOMATED 189 10^3/uL (150-450)
[2025-07-13 15:50] LABS: IRON (FE) 67 UG/DL (50-170); PERCENT SATURATION 16.2 % (13.2-45.0)
[2025-07-13 15:51] LABS: ALT/SGPT 22 U/L (7.0-40); AST/SGOT 21 U/L (<34); CALCIUM LEVEL 9.0 MG/DL (8.5-10.1); CARBON DIOXIDE LEVEL 28 MMOL/L (20-31); CHLORIDE LEVEL 103 MMOL/L (98-107); CREATININE FOR GFR 0.73 MG/DL (0.55-1.30); GLOMERULAR FILTRATION RATE > 90.0 (>60); MAGNESIUM LEVEL 1.6 MG/DL (1.8-2.4); POTASSIUM SERUM 4.0 MMOL/L (3.5-5.1); SODIUM LEVEL 139 MMOL/L (136-145)
[2025-07-13 15:52] LABS: TOTAL 25(OH) VITAMIN D 33.5 NG/ML (20.0-100.0)
[2025-07-13 16:04] LABS: HCG, SERUM QUALITATIVE NEGATIVE (NEGATIVE)
== END ==
LOC: M LAB 14:45
PROVIDERS: ATTEND Nurse Practitioner Family
DX: Z79.899 Other long term (current) drug therapy (principal); R42 Dizziness and giddiness